=== PATIENT | male | born 1950 | race African-American/Black ===

== ENCOUNTER 2017-05-11 12:24 | Inpatient (IN) | payer MEDICARE, OTHER ==
[~2017-05-11] VITALS: Ht 177.8 cm; Wt 50.8 kg
[2017-05-11 12:34] VITALS: BP 115/77
[2017-05-11] MEDS ORDERED: ATORVASTATIN CA20 MG GT (13:24)
[2017-05-11] MEDS ORDERED: ACETAMINOPHEN325 M1 GT (13:24)
[2017-05-11] MEDS ORDERED: ASPIR 8181 MG GT (13:24)
[2017-05-11] MEDS ORDERED: VITAMIN B-1100 MG GT (13:24)
[2017-05-11] MEDS ORDERED: LACTULOSE20 GM/301 GT (13:24)
[2017-05-11] MEDS ORDERED: AMLODIPINE BESYL5 MG GT (13:24)
[2017-05-11] MEDS ORDERED: MULTIVITAMINS1 EAC2 GT (13:24)
[2017-05-11] MEDS ORDERED: IPRATROPIU0.2 MG/1 M HHN (13:24)
[2017-05-11] MEDS ORDERED: SIMETHICONE80 MG GT (13:24)
[2017-05-11] MEDS ORDERED: LOVENOX10 M4 SUBQ (13:24)
[2017-05-11] MEDS ORDERED: FOLIC ACID1 MG GT (13:24)
[2017-05-11] MEDS ORDERED: MEROPENEM1 GM IV (13:24)
[2017-05-11] MEDS ORDERED: NAMENDA10 MG GT (13:24)
[2017-05-11 13:54] LABS: MEAN CORPUSCULAR HEMOGLOBIN 32.4 PG (27.0-31.0); MEAN CORPUSCULAR VOLUME 98 FL (80-99); MEAN PLATELET VOLUME 7.9 FL (6.5-10.1); PLATELET COUNT 298 K/UL (150-450); RED BLOOD COUNT 3.87 M/UL (4.70-6.10); RED CELL DISTRIBUTION WIDTH 11.8 % (11.6-14.8)
[2017-05-11 13:56] LABS: WHITE BLOOD COUNT 22.1 K/UL (4.8-10.8)
[2017-05-11 13:56] LABS: APPEARANCE,URINE SLIGHTLY CLOUDY; KETONES,URINE NEGATIVE (NEGATIVE); LEUKOCYTE ESTERASE ,URINE NEGATIVE (NEGATIVE); NITRITE,URINE NEGATIVE (NEGATIVE); PH,URINE 6.5 (4.5-8.0); PROTEIN,URINE NEGATIVE (NEGATIVE); UROBILINOGEN,URINE NORMAL MG/DL (0.0-1.0)
[2017-05-11 13:57] LABS: ALANINE AMINOTRANSFERASE 23 U/L (3-41); ALBUMIN/GLOBULIN RATIO 0.8 (1.0-2.7); ANION GAP 12 (5-15); ASPARTATE AMINO TRANSFERASE 22 U/L (5-40); CALCIUM 9.5 mg/dL (8.6-10.2); CARBON DIOXIDE 27 mEQ/L (20-30); CHLORIDE 99 mEQ/L (98-107); CREATININE 0.7 mg/dL (0.7-1.2); GLOMERULAR FILTRATION RATE > 60 mL/min (>60); HEMOLYSIS 8; POTASSIUM 4.1 mEQ/L (3.4-4.9); SODIUM 138 mEQ/L (135-145); TOTAL PROTEIN 7.3 g/dL (6.6-8.7)
[2017-05-11 14:01] LABS: TROPONIN I 0.71 ng/mL (<=0.30)
[2017-05-11 14:12] LABS: BAND NEUTROPHILS % (MANUAL) 2 % (0-8); BASOPHILS % (MANUAL) 0 % (0-2); EOSINOPHILS % (MANUAL) 0 % (0-3); LYMPHOCYTES % (MANUAL) 9 % (20-45); NEUTROPHILS % (MANUAL) 84 % (45-75); PLATELET ESTIMATE ADEQUATE; TOTAL CELLS COUNTED 100
[2017-05-11 14:13] LABS: PLATELET MORPHOLOGY NORMAL
[2017-05-11 14:15] LABS: MACROCYTES 1+
[2017-05-11] MEDS ORDERED: Piperacillin/Tazobactam 3.375 GM in NS 110 ML IVPB ONE (14:15)
[2017-05-11] MEDS ORDERED: Zosyn 3.375gm inj ONE (14:37)
--- NOTE | 2017-05-11 14:41 | Diagnostic Imaging Report ---
Indication: Dyspnea Comparison: None A single view chest radiograph was obtained. Findings: Cardiomediastinal appearance is within normal limits for age. Pulmonary vascularity is appropriate. The diaphragmatic contour is smooth and costophrenic angles are sharp. No pleural effusions are identified. The bones are osteopenic. Impression: No acute findings
[2017-05-11] MEDS ORDERED: DuoNeb 0.5-3(2.5)mg/3ml neb HHN PRN (14:45)
[2017-05-11] MEDS ORDERED: Miralax 17gm pkt ORAL PRN (14:45)
[2017-05-11] MEDS ORDERED: Morphine Sulfate 2mg/ml Inj IVP PRN (14:45)
[2017-05-11 15:08] VITALS: BP 108/76
--- NOTE | 2017-05-11 15:23 | Emergency Room Report ---
History of Present Illness General Chief Complaint: General Complaint Source: EMS Present Illness HPI 67-year-old male presents ED for violation. Per EMS patient noted to be congested and hypoxic at the half-way today. Was also febrile. Given Tylenol. Patient is afebrile here. O2 saturations improved on nasal cannula. Patient is nonverbal at baseline. Showing no signs of distress. No other aggravating relieving factors. No other associated symptoms Allergies: Coded Allergies: No Known Allergies (Unverified , 05/11/17) Patient History Past Medical History: none Past Surgical History: none Pertinent Family History: none Social History: Denies: smoking, alcohol use, drug use Immunizations: UTD Reviewed Nursing Documentation: PMH: Agreed, PSxH: Agreed Review of Systems All Other Systems: limited Physical Exam Vital Signs Date Time Temp Pulse Resp B/P (MAP) Pulse Ox O2 Delivery O2 Flow Rate FiO2 05/11/17 12:26 105 20 115/77 96 Nasal Cannula 4.0 05/11/17 12:34 99.6 Sp02 EP Interpretation: reviewed, normal General Appearance: no apparent distress, alert, GCS 15, non-toxic Head: normocephalic, atraumatic Eyes: bilateral eye normal inspection, bilateral eye PERRL ENT: hearing grossly normal, normal pharynx, no angioedema, normal voice Neck: full range of motion, supple/symm/no masses Respiratory: chest non-tender, lungs clear, normal breath sounds, crackles, speaking full sentences Cardiovascular #1: regular rate, rhythm, no edema Cardiovascular #2: 2+ carotid (R), 2+ carotid (L), 2+ radial (R), 2+ radial (L) , 2+ dorsalis pedis (R), 2+ dorsalis pedis (L) Gastrointestinal: normal bowel sounds, non tender, soft, non-distended, no guarding, no rebound Rectal: deferred Genitourinary: normal inspection, no CVA tenderness Musculoskeletal: back normal, non-tender Neurologic: other - nonverbal Psychiatric: other - nonverbal Reflexes: 3+ bicep (R), 3+ bicep (L), 3+ tricep (R), 3+ tricep (L), 3+ knee (R) , 3+ knee (L) Skin: normal color, no rash, warm/dry, well hydrated Lymphatic: no adenopathy Procedures Critical Care Time Critical Care Time i. I feel this is a highly complex case requiring extensive working including EKG/Rhythm strip, Xray/CT/US, Blood/urine lab work, repeat exams while in ED, and administration of strong opiates/narcotics for pain control, admission to hospital or close patient follow up. Total time: 30 min bedside evaluation and treatment excludes procedures (EKG). Reason for critical care: leukocytosis, elevated troponin Possible complications: hypotension, hypertension, ND, shock, arrhythmias, metabolic acidosis, end organ damage, respiratory failure. Interventions: Labs, IV fluids, EKG, chest x-ray. Antibiotics. Aspirin. Course: Patient brought in for congestion, hypoxic. Febrile. O2 sats improved on nasal cannula. Markedly leukocytosis noted. Troponins positive. EKG shows no acute ischemic changes. Given antibiotics. Given IV fluids. Given aspirin. Consultations: nursing staff, EMS, family Performed by: Dr Francois Tolerated well condition = critical j. because of unstable vital signs this patient had a condition that could potentially threaten life or limb. I feel this is a critical patient who required my full attention while patient was considered critical. Total Critical Care Time excluding procedures was greater than 35 minutes Medical Decision Making Diagnostic Impression: Primary Impression: NSTEMI (non-ST elevated myocardial infarction) Additional Impression: Pneumonia Qualified Codes: J18.9 - Pneumonia, unspecified organism ER Course Hospital Course 67-year-old M presenting to ED with respiratory distress, congestion, fever Differential diagnoses include: Pneumonia, CHF exacerbation, pneumothorax, fluid overload Clinical course Patient placed on stretcher. 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 After initial history and physical, I ordered labs, IV fluids, EKG, chest x-ray, blood cultures, UA. Patient placed on nasal cannula with O2 saturation improving Labs - marked leukocytosis noted, hemoglobin/hematocrit stable, electrolytes ok , troponin 0.71, BNP > 1900 CXR - no acute infiltrate identified EKG-normal sinus rhythm no acute ischemic changes identified Given fluids. Given antibiotics. Given aspirin Case discussed with Dr. Mancia and he agreed to the patient to his service for further care and support I feel this is a highly complex case requiring extensive working including EKG/ Rhythm strip, Xray/CT/US, Blood/urine lab work, repeat exams while in ED, and administration of strong opiates/narcotics for pain control, admission to hospital or close patient follow up. Diagnosis - NSTEMI, pneumonia Patient admitted to [facility] in critical condition Labs Test 05/11/17 13:10 05/11/17 13:45 White Blood Count 22.1 K/UL (4.8-10.8) Red Blood Count 3.87 M/UL (4.70-6.10) Hemoglobin 12.5 G/DL (14.2-18.0) Hematocrit 38.0 % (42.0-52.0) Mean Corpuscular Volume 98 FL (80-99) Mean Corpuscular Hemoglobin 32.4 PG (27.0-31.0) Mean Corpuscular Hemoglobin Concent 33.0 G/DL (32.0-36.0) Red Cell Distribution Width 11.8 % (11.6-14.8) Platelet Count 298 K/UL (150-450) Mean Platelet Volume 7.9 FL (6.5-10.1) Neutrophils (%) (Auto) % (45.0-75.0) Lymphocytes (%) (Auto) % (20.0-45.0) Monocytes (%) (Auto) % (1.0-10.0) Eosinophils (%) (Auto) % (0.0-3.0) Basophils (%) (Auto) % (0.0-2.0) Differential Total Cells Counted 100 Neutrophils % (Manual) 84 % (45-75) Lymphocytes % (Manual) 9 % (20-45) Monocytes % (Manual) 5 % (1-10) Eosinophils % (Manual) 0 % (0-3) Basophils % (Manual) 0 % (0-2) Band Neutrophils 2 % (0-8) Platelet Estimate Adequate Platelet Morphology Normal Macrocytosis 1+ Sodium Level 138 mEQ/L (135-145) Potassium Level 4.1 mEQ/L (3.4-4.9) Chloride Level 99 mEQ/L (98-107) Carbon Dioxide Level 27 mEQ/L (20-30) Anion Gap 12 (5-15) Blood Urea Nitrogen 9 mg/dL (7-23) Creatinine 0.7 mg/dL (0.7-1.2) Estimat Glomerular Filtration Rate > 60 mL/min (>60) Glucose Level 115 mg/dL (74-106) Lactic Acid Level 1.30 mmol/L (0.66-2.22) Calcium Level 9.5 mg/dL (8.6-10.2) Total Bilirubin 0.8 mg/dL (0.0-1.2) Aspartate Amino Transf (AST/SGOT) 22 U/L (5-40) Alanine Aminotransferase (ALT/SGPT) 23 U/L (3-41) Alkaline Phosphatase 58 U/L (40-129) Total Creatine Kinase 69 U/L (38-174) Creatine Kinase MB 3.0 ng/mL (< 6.7) Creatine Kinase MB Relative Index 4.3 Troponin I 0.71 ng/mL (<=0.30) Pro-B-Type Natriuretic Peptide 1907 pg/mL (0-125) Total Protein 7.3 g/dL (6.6-8.7) Albumin 3.4 g/dL (3.5-5.2) Globulin 3.9 g/dL Albumin/Globulin Ratio 0.8 (1.0-2.7) Urine Color Yellow Urine Appearance Slightly cloudy Urine pH 6.5 (4.5-8.0) Urine Specific [place] 1.015 (1.005-1.035) Urine Protein Negative (NEGATIVE) Urine Glucose (UA) Negative (NEGATIVE) Urine Ketones Negative (NEGATIVE) Urine Occult Blood Negative (NEGATIVE) Urine Nitrite Negative (NEGATIVE) Urine Bilirubin Negative (NEGATIVE) Urine Urobilinogen Normal MG/DL (0.0-1.0) Urine Leukocyte Esterase Negative (NEGATIVE) EKG Diagnostic Results Rate: normal Rhythm: NSR ST Segments: no acute changes ASA given to the pt in ED: Yes Rhythm Strip Diag. Results EP Interpretation: yes Rhythm: NSR, no PVC's Chest X-Ray Diagnostic Results Chest X-Ray Diagnostic Results : Chest X-Ray Ordered: Yes # of Views/Limited/Complete: 1 View Indication: Shortness of Breath EP Interpretation: Yes Interpretation: no consolidation, no effusion, no pneumothorax, no acute cardiopulmonary disease Impression: No acute disease Electronically Signed by: Electronically signed by Khadar Francois MD Last Vital Signs Date Time Temp Pulse Resp B/P (MAP) Pulse Ox O2 Delivery O2 Flow Rate FiO2 05/11/17 15:08 99.0 77 20 108/76 96 Nasal Cannula 4.0 Status: improved Disposition: ADMITTED INPATIENT Condition: Critical Referrals: ARLENE MANCIA (PCP) KHADAR FRANCOIS M.D. May 11, 2017 15:23
[2017-05-11 17:03] VITALS: BP 113/70
--- NOTE | 2017-05-11 17:05 | Cardiac Electrophysiology PN ---
Subjective Subjective [id number] Objective Last 24 Hour Vital Signs Date Time Temp Pulse Resp B/P (MAP) Pulse Ox O2 Delivery O2 Flow Rate FiO2 05/11/17 16:30 99.0 69 20 107/81 100 Simple Mask 10.0 05/11/17 15:08 99.0 77 20 108/76 96 Nasal Cannula 4.0 05/11/17 12:34 99.6 105 20 115/77 96 Nasal Cannula 4.0 05/11/17 12:26 105 20 115/77 96 Nasal Cannula 4.0 Intake and Output 05/11/17 05/12/17 19:00 07:00 Intake Total 2110 ml Output Total 260 ml Balance 1850 ml Intake Oral 0 ml IV Total 2110 ml Output Urine Total 260 ml Laboratory Tests Test 05/11/17 13:10 05/11/17 13:45 White Blood Count 22.1 K/UL (4.8-10.8) *H Red Blood Count 3.87 M/UL (4.70-6.10) L Hemoglobin 12.5 G/DL (14.2-18.0) L Hematocrit 38.0 % (42.0-52.0) L Mean Corpuscular Volume 98 FL (80-99) Mean Corpuscular Hemoglobin 32.4 PG (27.0-31.0) H Mean Corpuscular Hemoglobin Concent 33.0 G/DL (32.0-36.0) Red Cell Distribution Width 11.8 % (11.6-14.8) Platelet Count 298 K/UL (150-450) Mean Platelet Volume 7.9 FL (6.5-10.1) Neutrophils (%) (Auto) % (45.0-75.0) Lymphocytes (%) (Auto) % (20.0-45.0) Monocytes (%) (Auto) % (1.0-10.0) Eosinophils (%) (Auto) % (0.0-3.0) Basophils (%) (Auto) % (0.0-2.0) Differential Total Cells Counted 100 Neutrophils % (Manual) 84 % (45-75) H Lymphocytes % (Manual) 9 % (20-45) L Monocytes % (Manual) 5 % (1-10) Eosinophils % (Manual) 0 % (0-3) Basophils % (Manual) 0 % (0-2) Band Neutrophils 2 % (0-8) Platelet Estimate Adequate Platelet Morphology Normal Macrocytosis 1+ Sodium Level 138 mEQ/L (135-145) Potassium Level 4.1 mEQ/L (3.4-4.9) Chloride Level 99 mEQ/L (98-107) Carbon Dioxide Level 27 mEQ/L (20-30) Anion Gap 12 (5-15) Blood Urea Nitrogen 9 mg/dL (7-23) Creatinine 0.7 mg/dL (0.7-1.2) Estimat Glomerular Filtration Rate > 60 mL/min (>60) Glucose Level 115 mg/dL (74-106) H Lactic Acid Level 1.30 mmol/L (0.66-2.22) Calcium Level 9.5 mg/dL (8.6-10.2) Total Bilirubin 0.8 mg/dL (0.0-1.2) Aspartate Amino Transf (AST/SGOT) 22 U/L (5-40) Alanine Aminotransferase (ALT/SGPT) 23 U/L (3-41) Alkaline Phosphatase 58 U/L (40-129) Total Creatine Kinase 69 U/L (38-174) Creatine Kinase MB 3.0 ng/mL (< 6.7) Creatine Kinase MB Relative Index 4.3 Troponin I 0.71 ng/mL (<=0.30) *H Pro-B-Type Natriuretic Peptide 1907 pg/mL (0-125) H Total Protein 7.3 g/dL (6.6-8.7) Albumin 3.4 g/dL (3.5-5.2) L Globulin 3.9 g/dL Albumin/Globulin Ratio 0.8 (1.0-2.7) L Urine Color Yellow Urine Appearance Slightly cloudy Urine pH 6.5 (4.5-8.0) Urine Specific [place] 1.015 (1.005-1.035) Urine Protein Negative (NEGATIVE) Urine Glucose (UA) Negative (NEGATIVE) Urine Ketones Negative (NEGATIVE) Urine Occult Blood Negative (NEGATIVE) Urine Nitrite Negative (NEGATIVE) Urine Bilirubin Negative (NEGATIVE) Urine Urobilinogen Normal MG/DL (0.0-1.0) Urine Leukocyte Esterase Negative (NEGATIVE) TYSON NOVOA May 11, 2017 17:05
[2017-05-11] MEDS ORDERED: Miralax 17gm pkt GT PRN (17:30)
[2017-05-11] MEDS: Vancomycin 1 GM in D5W 275 ML IVPB SCH (17:36)
--- NOTE | 2017-05-11 18:07 | Infectious Diseases Prog Note ---
Assessment/Plan Problems: (1) Sepsis Assessment & Plan: will send blood culture , and start vancomycin with cefepime (2) Pneumonia Assessment & Plan: on vancomycin and cefepime , monitor CXR (3) NSTEMI (non-ST elevated myocardial infarction) Assessment & Plan: recommend cardiology consult for evaluation Subjective Allergies: Coded Allergies: No Known Allergies (Unverified , 05/11/17) Objective Vital Signs Last 24 Hour Vital Signs Date Time Temp Pulse Resp B/P (MAP) Pulse Ox O2 Delivery O2 Flow Rate FiO2 05/11/17 17:03 98.0 74 20 113/70 94 Nasal Cannula 4.0 05/11/17 16:30 99.0 69 20 107/81 100 Simple Mask 10.0 05/11/17 15:08 99.0 77 20 108/76 96 Nasal Cannula 4.0 05/11/17 12:34 99.6 105 20 115/77 96 Nasal Cannula 4.0 05/11/17 12:26 105 20 115/77 96 Nasal Cannula 4.0 Height (Feet): 5 Height (Inches): 10.00 Weight (Pounds): 160 Laboratory Tests Test 05/11/17 13:10 05/11/17 13:45 White Blood Count 22.1 K/UL (4.8-10.8) *H Red Blood Count 3.87 M/UL (4.70-6.10) L Hemoglobin 12.5 G/DL (14.2-18.0) L Hematocrit 38.0 % (42.0-52.0) L Mean Corpuscular Volume 98 FL (80-99) Mean Corpuscular Hemoglobin 32.4 PG (27.0-31.0) H Mean Corpuscular Hemoglobin Concent 33.0 G/DL (32.0-36.0) Red Cell Distribution Width 11.8 % (11.6-14.8) Platelet Count 298 K/UL (150-450) Mean Platelet Volume 7.9 FL (6.5-10.1) Neutrophils (%) (Auto) % (45.0-75.0) Lymphocytes (%) (Auto) % (20.0-45.0) Monocytes (%) (Auto) % (1.0-10.0) Eosinophils (%) (Auto) % (0.0-3.0) Basophils (%) (Auto) % (0.0-2.0) Differential Total Cells Counted 100 Neutrophils % (Manual) 84 % (45-75) H Lymphocytes % (Manual) 9 % (20-45) L Monocytes % (Manual) 5 % (1-10) Eosinophils % (Manual) 0 % (0-3) Basophils % (Manual) 0 % (0-2) Band Neutrophils 2 % (0-8) Platelet Estimate Adequate Platelet Morphology Normal Macrocytosis 1+ Sodium Level 138 mEQ/L (135-145) Potassium Level 4.1 mEQ/L (3.4-4.9) Chloride Level 99 mEQ/L (98-107) Carbon Dioxide Level 27 mEQ/L (20-30) Anion Gap 12 (5-15) Blood Urea Nitrogen 9 mg/dL (7-23) Creatinine 0.7 mg/dL (0.7-1.2) Estimat Glomerular Filtration Rate > 60 mL/min (>60) Glucose Level 115 mg/dL (74-106) H Lactic Acid Level 1.30 mmol/L (0.66-2.22) Calcium Level 9.5 mg/dL (8.6-10.2) Total Bilirubin 0.8 mg/dL (0.0-1.2) Aspartate Amino Transf (AST/SGOT) 22 U/L (5-40) Alanine Aminotransferase (ALT/SGPT) 23 U/L (3-41) Alkaline Phosphatase 58 U/L (40-129) Total Creatine Kinase 69 U/L (38-174) Creatine Kinase MB 3.0 ng/mL (< 6.7) Creatine Kinase MB Relative Index 4.3 Troponin I 0.71 ng/mL (<=0.30) *H Pro-B-Type Natriuretic Peptide 1907 pg/mL (0-125) H Total Protein 7.3 g/dL (6.6-8.7) Albumin 3.4 g/dL (3.5-5.2) L Globulin 3.9 g/dL Albumin/Globulin Ratio 0.8 (1.0-2.7) L Urine Color Yellow Urine Appearance Slightly cloudy Urine pH 6.5 (4.5-8.0) Urine Specific [place] 1.015 (1.005-1.035) Urine Protein Negative (NEGATIVE) Urine Glucose (UA) Negative (NEGATIVE) Urine Ketones Negative (NEGATIVE) Urine Occult Blood Negative (NEGATIVE) Urine Nitrite Negative (NEGATIVE) Urine Bilirubin Negative (NEGATIVE) Urine Urobilinogen Normal MG/DL (0.0-1.0) Urine Leukocyte Esterase Negative (NEGATIVE) Current Medications Medications (Trade) Dose Ordered Sig/Greta Route PRN Reason Start Time Stop Time Status Last Admin Dose Admin Acetaminophen (Tylenol) 650 mg Q4H PRN ORAL fever 05/11/17 14:45 06/10/17 14:44 Albuterol/ Ipratropium (DuoNeb 0.5-3(2.5)mg/3ml) 3 ml Q4H PRN HHN Shortness of Breath 05/11/17 14:45 05/16/17 14:44 Amlodipine Besylate (Norvasc) 5 mg DAILY GT 05/12/17 09:00 06/11/17 08:59 Aspirin (ASA) 81 mg DAILY NG 05/12/17 09:00 06/11/17 08:59 Atorvastatin Calcium (Lipitor) 10 mg BEDTIME GT 05/11/17 21:00 06/10/17 20:59 Cefepime HCl 2 gm/ Dextrose 110 ml @ 220 mls/hr Q12HR@0900,2100 IV 05/11/17 21:00 05/18/17 20:59 Heparin Sodium (Porcine) (Heparin 5000 units/ml) 5,000 units EVERY 12 HOURS SUBQ 05/11/17 21:00 06/10/17 20:59 Memantine (Namenda) 10 mg DAILY GT 05/12/17 09:00 06/11/17 08:59 Metoprolol Tartrate (Lopressor) 12.5 mg Q12HR GT 05/11/17 21:00 06/10/17 20:59 Morphine Sulfate (Morphine Sulfate) 2 mg Q4H PRN IVP Moderate Pain (Pain Scale 4-6) 05/11/17 14:45 05/18/17 14:44 Ondansetron HCl (Zofran) 4 mg Q6H PRN IVP Nausea & Vomiting 05/11/17 14:45 06/10/17 14:44 Phenazopyridine HCl (Pyridium) 100 mg DAILYPRN PRN GT dysuria 05/11/17 17:30 06/10/17 14:44 Polyethylene Glycol (Miralax) 17 gm DAILYPRN PRN GT Constipation 05/11/17 17:30 06/10/17 14:44 Temazepam (Restoril) 15 mg HSPRN PRN GT Insomnia 05/11/17 17:30 05/18/17 14:44 Vancomycin HCl (Vanco rx to dose) 1 ea DAILYPRN PRN MISC RX PROTOCOL 05/11/17 17:15 06/10/17 17:14 Vancomycin HCl 1 gm/Dextrose 275 ml @ 183.3 mls/ hr Q12HR@0600,1800 IVPB 05/11/17 18:00 05/16/17 17:59 05/11/17 17:36 Tavo Chopra M.D. May 11, 2017 18:07
[2017-05-11 20:15] VITALS: BP 112/70
[2017-05-11] MEDS: Metoprolol Tartrate 12.5mg TAB GT SCH (21:01)
[2017-05-11] MEDS: Heparin 5000 units/ml inj SUBQ SCH (21:02)
[2017-05-11] MEDS: Cefepime HCl 2 GM in D5W 110 ML IV SCH (21:08)
[2017-05-11 21:43] LABS: TROPONIN I 0.87 ng/mL (<=0.30)
[2017-05-11 22:48] LABS: APPEARANCE,URINE CLEAR; KETONES,URINE NEGATIVE (NEGATIVE); LEUKOCYTE ESTERASE ,URINE 1+ (NEGATIVE); NITRITE,URINE NEGATIVE (NEGATIVE); PH,URINE 7 (4.5-8.0); PROTEIN,URINE NEGATIVE (NEGATIVE); UROBILINOGEN,URINE NORMAL MG/DL (0.0-1.0)
[2017-05-11 23:00] LABS: BACTERIA,URINE MODERATE /HPF
[2017-05-11 23:01] LABS: AMORPHOUS SEDIMENT,UR FEW /LPF
--- NOTE | 2017-05-11 23:45 | Consultation ---
DATE OF CONSULTATION: INFECTIOUS DISEASE CONSULTATION REQUESTING PHYSICIAN: Sridhar Jiang D.O. REASON FOR CONSULTATION: Sepsis, leukocytosis, possible pneumonia, recommendation for antibiotics therapy. HISTORY OF PRESENT ILLNESS: The patient is a 67-year-old male, presents to the emergency room at [facility] due to hypoxemia and fever, which [facility]. Today, the patient was given Tylenol without improvement and his saturation improved upon arrival to the emergency room with nasal cannula for oxygen. The patient is nonverbal and cannot provide any history at this point. History was mainly obtained from the medical records. The patient had temperature of 99.6 in the emergency room with pulse of 105, saturating 96% on four liters nasal cannula. His chest x-ray showed no acute infiltration, but his white count seems to be elevated at 22,000 concerning for sepsis with fever, so I was consulted by the primary provider for antibiotics treatment. REVIEW OF SYSTEMS: Unable to obtain. PAST MEDICAL HISTORY: Unable to obtain at this point. PAST SURGICAL HISTORY: Unable to obtain. FAMILY HISTORY: Unable to obtain at this point. SOCIAL HISTORY: The [facility] is a [facility] resident. Denied using any drugs, tobacco, or alcohol. ALLERGIES: He has no known drug allergy. MEDICATIONS: He is on cefepime and vancomycin by the admitting provider. For the rest of his medications, please refer to MAR. PHYSICAL EXAMINATION: VITAL SIGNS: Temperature is 98, pulse 74, respirations 20, blood pressure 113/70, and O2 saturation 94% on four liters nasal cannula. GENERAL: An elderly male, up in bed, alert, unresponsive, does not follow commands, not in acute distress. HEENT: Normocephalic and atraumatic. Pupils are reactive to light. Dry oral mucosa. Poor dental hygiene. NECK: Supple. No lymphadenopathy. CARDIOVASCULAR: Regular rate and rhythm. No murmur. LUNGS: He had diminished breathing sounds at the bases. No wheezing or rhonchi. ABDOMEN: Soft, nontender, and nondistended. No organomegaly. No ascites. EXTREMITIES: No edema or cyanosis. SKIN: Dry skin. No rash or hives. LABORATORY AND DIAGNOSTIC DATA: Labs showed white count of 22.1, hemoglobin of 12.5, and platelet count of 298,000. BUN of 9 and creatinine of 0.7. AST of 22, ALT of 23, and alkaline phosphatase of 58. Urinalysis was negative. Imaging, chest x-ray showed no acute finding. ASSESSMENT AND RECOMMENDATION: 1. Sepsis with leukocytosis, unclear etiology at this point. The patient was started on vancomycin and cefepime, which we will continue for now. Pending culture results. 2. Pneumonia, on vancomycin and cefepime already. Repeat chest x-ray to confirm. 3. Non-ST elevation myocardial infarction. Consult Cardiology. Tavo Chopra M.D. DR: JENNIFER JOB#: [id number] CC:
[2017-05-12] VITALS (7 sets, daily range): BP systolic 82–117; BP diastolic 53–67
--- NOTE | 2017-05-12 00:15 | History and Physical Report ---
DATE OF ADMISSION: 05/11/2017 TIME SEEN: 1 p.m. CONSULTANTS: 1. Ani Douglass M.D. 2. Dr. Srivastava. 3. Subhash Jorgensen M.D. 4. Prema Biswas M.D. 5. Elvin Thomson M.D. CHIEF COMPLAINT: Fever, tachycardia, congestion, and weakness. BRIEF HISTORY: This is a 67-year-old male from [facility], who presents with the above-mentioned diagnoses. Currently using O2 NC in the ER, confused, altered, nonverbal, awaiting admission. PAST MEDICAL HISTORY: Hypertension, weakness, and altered mental status. PAST SURGICAL HISTORY: Unknown. MEDICATIONS: Just IV fluids for now. We will obtain list shortly. ALLERGIES: Denies. SOCIAL HISTORY: Unknown. REVIEW OF SYSTEMS: Nonverbal. PHYSICAL EXAMINATION: GENERAL: Lethargic in bed, O2 NC, altered, nonverbal. VITAL SIGNS: Show temperature is not given, pulse 105, respirations 20, and blood pressure 115/77. CARDIOVASCULAR: No murmur. LUNGS: Poor air exchange. ABDOMEN: Bowel sounds positive. Soft, nontender, and nondistended. EXTREMITIES: No cyanosis, clubbing, or edema. NEUROLOGIC: The patient is flaccid in bed, not responding to questions. LABORATORY AND DIAGNOSTIC DATA: Pending. ASSESSMENT: 1. Fever. 2. Tachycardia. 3. Hypertension. 4. Congestion. 5. Weakness. 6. Altered mental status. PLAN: 1. Continue premeds. 2. OT, PT, and dietary evaluation. 3. O2 and pulmonary treatment. 4. Antibiotics per Infectious Disease. 5. Resume home medications. 6. Blood pressure control. 7. Dietary followup. 8. Dr. Douglass, Dr. Srivastava, Dr. Jorgensen, Dr. Biswas, and Dr. Thomson to consult. 9. We will continue to follow this patient. 10. Check labs when they become available. Sridhar Jiang D.O. DR: Rowan JOB#: [id number] CC:
--- NOTE | 2017-05-12 03:30 | Consultation ---
DATE OF CONSULTATION: 05/11/2017 CARDIOLOGY CONSULTATION CONSULTING PHYSICIAN: Elvin Thomson M.D. REFERRING PHYSICIAN: Sridhar Jiang D.O. REASON FOR CONSULTATION: Elevated troponin. HISTORY OF PRESENT ILLNESS: The patient is a 67-year-old gentleman with history of advanced dementia, status post G-tube, nonverbal, who [facility] a [facility], who [facility] for congestion and being hypoxic. The patient had no sign of distress. The patient was then admitted to stepdown unit and a Cardiology consultation was obtained for further evaluation. Chart noted the patient's most recent hospitalization was at [facility] from 04/28/2017 through 04/30/2017 for acute respiratory failure and aspiration pneumonia. Even then, the patient had elevated troponin. REVIEW OF SYSTEMS: Cannot be obtained. PAST MEDICAL HISTORY: As mentioned above. FAMILY HISTORY: Noncontributory. SOCIAL HISTORY: [facility]. He does not smoke or drink alcohol. MEDICATIONS: Per reconciliation. PHYSICAL EXAMINATION: VITAL SIGNS: Show blood pressure of 107/81, pulse 69, and respirations 18. His initial pulse was 107 and temperature was 100 degrees. NECK: Shows no JVD. LUNGS: Coarse rhonchi. CARDIOVASCULAR: Shows regular S1 and S2 with no gallop or murmur. ABDOMEN: Status post G-tube. EXTREMITIES: No pitting edema. LABORATORY AND DIAGNOSTIC DATA: His EKG shows sinus rhythm with possible old inferior wall infarct. Labs show white count of 22.1, hemoglobin 12.5, hematocrit 38, and platelet count of 298,000. Sodium 138, potassium 4.1, BUN of 9, creatinine 0.7, and glucose of 115. Troponin is elevated at 0.71. BNP is 1907. ASSESSMENT AND PLAN: 1. Elevated troponin. The patient's CPKs are negative and the patient does not have renal failure. The EKG does not show any acute ischemic changes. The patient, however, is nonverbal. We will treat the patient medically and we will repeat the cardiac enzymes, get an echocardiogram and repeat EKG. In the meantime, continue the patient on aspirin and add low-dose beta-amelia to his medical regimen. 2. History of hypertension, on Norvasc 5 mg daily and Lopressor 12.5 mg b.i.d. 3. Sepsis, elevated white count, on vancomycin and cefepime. 4. Dysphagia, status post percutaneous endoscopic gastrostomy placement. 5. Chronic encephalopathy and Alzheimer's. Thank you very much, Dr. Jiang, for allowing me to participate in the care of this patient. Please do not hesitate to contact me for any questions regarding my evaluation. Elvin Thomson M.D. DR: Sharad JOB#: [id number] CC:
[2017-05-12 05:43] LABS: BASOPHILS % (AUTO) 0.7 % (0.0-2.0); EOSINOPHILS % (AUTO) 1.8 % (0.0-3.0); LYMPHOCYTES % (AUTO) 16.9 % (20.0-45.0); MEAN CORPUSCULAR HGB CONC 32.4 G/DL (32.0-36.0); MEAN CORPUSCULAR VOLUME 99 FL (80-99); MEAN PLATELET VOLUME 7.7 FL (6.5-10.1); MONOCYTES % (AUTO) 6.4 % (1.0-10.0); NEUTROPHILS % (AUTO) 74.3 % (45.0-75.0); PLATELET COUNT 257 K/UL (150-450); RED BLOOD COUNT 3.28 M/UL (4.70-6.10); RED CELL DISTRIBUTION WIDTH 11.7 % (11.6-14.8); WHITE BLOOD COUNT 11.5 K/UL (4.8-10.8)
[2017-05-12] MEDS: Vancomycin 1 GM in D5W 275 ML IVPB SCH ×2 (05:53→18:47)
[2017-05-12 06:06] LABS: ALANINE AMINOTRANSFERASE 17 U/L (3-41); ALBUMIN/GLOBULIN RATIO 0.7 (1.0-2.7); ANION GAP 9 (5-15); ASPARTATE AMINO TRANSFERASE 15 U/L (5-40); CARBON DIOXIDE 25 mEQ/L (20-30); CHLORIDE 105 mEQ/L (98-107); CHOLESTEROL 128 mg/dL (< 200); CHOLESTEROL/HDL RATIO 5.1 (3.3-4.4); CREATININE 0.6 mg/dL (0.7-1.2); GLOMERULAR FILTRATION RATE > 60 mL/min (>60); HEMOLYSIS 0; LDL CHOLESTEROL (CALC.) 91 mg/dL (60-99); POTASSIUM 3.6 mEQ/L (3.4-4.9); SODIUM 139 mEQ/L (135-145); TOTAL PROTEIN 6.4 g/dL (6.6-8.7)
[2017-05-12 06:08] LABS: TROPONIN I 0.75 ng/mL (<=0.30)
[2017-05-12] MEDS: Metoprolol Tartrate 12.5mg TAB GT SCH ×2 (09:00→21:14)
[2017-05-12] MEDS: Cefepime HCl 2 GM in D5W 110 ML IV SCH ×2 (09:01→21:15)
[2017-05-12] MEDS: Memantine 10mg tab GT SCH (09:01)
[2017-05-12] MEDS: Aspirin Baby 81mg NG SCH (09:01)
[2017-05-12] MEDS: Heparin 5000 units/ml inj SUBQ SCH ×2 (09:03→21:19)
--- NOTE | 2017-05-12 11:23 | Consultation ---
History of Present Illness General Date patient seen: May 11, 2017 Chief Complaint: General Complaint Referring physician: Dr. Jiang Reason for Consultation: hypoxemia Present Illness HPI 67-year-old male with PMHx of end stage dementia, Gtube feeding presented to ED for evaluation of congestion and hypoxemia at the detention today. Was also febrile. Patient is nonverbal at baseline. Showing no signs of distress. No other aggravating relieving factors. He was found to have increased troponin and admitted to [facility] for further treatment. Allergies: Coded Allergies: No Known Allergies (Unverified , 05/11/17) Medication History Scheduled Amlodipine Besylate* (Amlodipine Besylate*), 5 MG GT DAILY, (Reported) Aspirin* (Aspir 81*), 81 MG GT DAILY, (Reported) Atorvastatin Calcium* (Atorvastatin Calcium*), 10 MG GT BEDTIME, (Reported) Enoxaparin* (Lovenox*), 40 MG SUBQ DAILY, (Reported) Folic Acid* (Folic Acid*), 1 MG GT DAILY, (Reported) Memantine Hcl* (Namenda*), 10 MG GT DAILY, (Reported) Multivitamins* (Multivitamins*), 1 TAB GT DAILY, (Reported) Thiamine Hcl* (Vitamin B-1*), 100 MG GT DAILY, (Reported) Scheduled PRN Acetaminophen* (Acetaminophen 325MG Tablet*), 650 MG GT Q6H PRN for For Pain, ( Reported) Ipratropium [place] 0.5MG/2.5ML (Ipratropium [place] 0.5MG/2.5ML), 0.5 MG HHN Q6H PRN for Shortness of Breath, (Reported) Simethicone* (Simethicone*), Unknown Dose GT Q8H PRN for GAS PAIN, (Reported) Miscellaneous Medications Lactulose (Lactulose*), 30 ML GT, (Reported) Meropenem (Meropenem), 1 GM IV, (Reported) Patient History Healthcare decision maker Judith Diehl Resuscitation status Full Code Advanced Directive on File Past Medical/Surgical History Past Medical/Surgical History: (1) Alzheimer disease (2) Feeding by G-tube Review of Systems All Other Systems: negative except mentioned in HPI Physical Exam General Appearance: cachetic, thin Lines, tubes and drains: peripheral HEENT: normocephalic, atraumatic Neck: normal alignment, supple Respiratory/Chest: rhonchi - left, rhonchi - right Cardiovascular/Chest: normal peripheral pulses, normal rate, regular rhythm Abdomen: normal bowel sounds, soft Genitourinary/Rectal: normal genital exam, normal rectal exam Extremities: normal range of motion, non-tender Last 24 Hour Vital Signs Date Time Temp Pulse Resp B/P (MAP) Pulse Ox O2 Delivery O2 Flow Rate FiO2 05/12/17 09:00 65 103/61 05/12/17 09:00 65 103/61 05/12/17 08:00 97.5 71 19 103/61 98 Venturi Mask 7.0 35 05/12/17 08:00 65 05/12/17 07:37 Venturi Mask 8.0 35 05/12/17 07:37 97 Venturi Mask 8.0 35 05/12/17 07:35 68 16 Venturi Mask 8.0 35 05/12/17 03:46 58 05/12/17 03:36 97.7 66 18 98/62 98 Venturi Mask 8.0 35 05/12/17 00:18 98.1 62 18 111/58 95 Simple Mask 05/11/17 23:15 60 05/11/17 21:01 67 112/70 05/11/17 20:15 97.0 67 17 112/70 100 Simple Mask 05/11/17 20:00 62 05/11/17 19:07 Non-Rebreather 15.0 100 05/11/17 19:07 100 Non-Rebreather 15.0 100 05/11/17 19:07 68 18 Non-Rebreather 15.0 100 05/11/17 17:03 98.0 74 20 113/70 94 Nasal Cannula 4.0 05/11/17 16:30 99.0 69 20 107/81 100 Simple Mask 10.0 05/11/17 15:08 99.0 77 20 108/76 96 Nasal Cannula 4.0 05/11/17 12:34 99.6 105 20 115/77 96 Nasal Cannula 4.0 05/11/17 12:26 105 20 115/77 96 Nasal Cannula 4.0 Intake and Output 05/12/17 05/13/17 19:00 07:00 Output Total 375 ml Balance -375 ml Output Urine Total 375 ml Laboratory Tests Test 05/11/17 13:10 05/11/17 13:45 05/11/17 21:05 05/11/17 22:00 White Blood Count 22.1 K/UL (4.8-10.8) *H Red Blood Count 3.87 M/UL (4.70-6.10) L Hemoglobin 12.5 G/DL (14.2-18.0) L Hematocrit 38.0 % (42.0-52.0) L Mean Corpuscular Volume 98 FL (80-99) Mean Corpuscular Hemoglobin 32.4 PG (27.0-31.0) H Mean Corpuscular Hemoglobin Concent 33.0 G/DL (32.0-36.0) Red Cell Distribution Width 11.8 % (11.6-14.8) Platelet Count 298 K/UL (150-450) Mean Platelet Volume 7.9 FL (6.5-10.1) Neutrophils (%) (Auto) % (45.0-75.0) Lymphocytes (%) (Auto) % (20.0-45.0) Monocytes (%) (Auto) % (1.0-10.0) Eosinophils (%) (Auto) % (0.0-3.0) Basophils (%) (Auto) % (0.0-2.0) Differential Total Cells Counted 100 Neutrophils % (Manual) 84 % (45-75) H Lymphocytes % (Manual) 9 % (20-45) L Monocytes % (Manual) 5 % (1-10) Eosinophils % (Manual) 0 % (0-3) Basophils % (Manual) 0 % (0-2) Band Neutrophils 2 % (0-8) Platelet Estimate Adequate Platelet Morphology Normal Macrocytosis 1+ Sodium Level 138 mEQ/L (135-145) Potassium Level 4.1 mEQ/L (3.4-4.9) Chloride Level 99 mEQ/L (98-107) Carbon Dioxide Level 27 mEQ/L (20-30) Anion Gap 12 (5-15) Blood Urea Nitrogen 9 mg/dL (7-23) Creatinine 0.7 mg/dL (0.7-1.2) Estimat Glomerular Filtration Rate > 60 mL/min (>60) Glucose Level 115 mg/dL (74-106) H Lactic Acid Level 1.30 mmol/L (0.66-2.22) Calcium Level 9.5 mg/dL (8.6-10.2) Total Bilirubin 0.8 mg/dL (0.0-1.2) Aspartate Amino Transf (AST/SGOT) 22 U/L (5-40) Alanine Aminotransferase (ALT/SGPT) 23 U/L (3-41) Alkaline Phosphatase 58 U/L (40-129) Total Creatine Kinase 69 U/L (38-174) Creatine Kinase MB 3.0 ng/mL (< 6.7) Creatine Kinase MB Relative Index 4.3 Troponin I 0.71 ng/mL (<=0.30) *H 0.87 ng/mL (<=0.30) *H Pro-B-Type Natriuretic Peptide 1907 pg/mL (0-125) H Total Protein 7.3 g/dL (6.6-8.7) Albumin 3.4 g/dL (3.5-5.2) L Globulin 3.9 g/dL Albumin/Globulin Ratio 0.8 (1.0-2.7) L Urine Color Yellow Pale yellow Urine Appearance Slightly cloudy Clear Urine pH 6.5 (4.5-8.0) 7 (4.5-8.0) Urine Specific [place] 1.015 (1.005-1.035) 1.010 (1.005-1.035) Urine Protein Negative (NEGATIVE) Negative (NEGATIVE) Urine Glucose (UA) Negative (NEGATIVE) Negative (NEGATIVE) Urine Ketones Negative (NEGATIVE) Negative (NEGATIVE) Urine Occult Blood Negative (NEGATIVE) 2+ (NEGATIVE) H Urine Nitrite Negative (NEGATIVE) Negative (NEGATIVE) Urine Bilirubin Negative (NEGATIVE) Negative (NEGATIVE) Urine Urobilinogen Normal MG/DL (0.0-1.0) Normal MG/DL (0.0-1.0) Urine Leukocyte Esterase Negative (NEGATIVE) 1+ (NEGATIVE) H Urine RBC 5-10 /HPF (0 - 0) H Urine WBC 2-4 /HPF (0 - 0) Urine Squamous Epithelial Cells None /LPF (NONE/OCC) Urine Amorphous Sediment Few /LPF (NONE) H Urine Bacteria Moderate /HPF (NONE) H Test 05/12/17 05:10 White Blood Count 11.5 K/UL (4.8-10.8) H Red Blood Count 3.28 M/UL (4.70-6.10) L Hemoglobin 10.5 G/DL (14.2-18.0) L Hematocrit 32.4 % (42.0-52.0) L Mean Corpuscular Volume 99 FL (80-99) Mean Corpuscular Hemoglobin 32.0 PG (27.0-31.0) H Mean Corpuscular Hemoglobin Concent 32.4 G/DL (32.0-36.0) Red Cell Distribution Width 11.7 % (11.6-14.8) Platelet Count 257 K/UL (150-450) Mean Platelet Volume 7.7 FL (6.5-10.1) Neutrophils (%) (Auto) 74.3 % (45.0-75.0) Lymphocytes (%) (Auto) 16.9 % (20.0-45.0) L Monocytes (%) (Auto) 6.4 % (1.0-10.0) Eosinophils (%) (Auto) 1.8 % (0.0-3.0) Basophils (%) (Auto) 0.7 % (0.0-2.0) Sodium Level 139 mEQ/L (135-145) Potassium Level 3.6 mEQ/L (3.4-4.9) Chloride Level 105 mEQ/L (98-107) Carbon Dioxide Level 25 mEQ/L (20-30) Anion Gap 9 (5-15) Blood Urea Nitrogen 7 mg/dL (7-23) Creatinine 0.6 mg/dL (0.7-1.2) L Estimat Glomerular Filtration Rate > 60 mL/min (>60) Glucose Level 118 mg/dL (74-106) H Calcium Level 9.0 mg/dL (8.6-10.2) Total Bilirubin 0.4 mg/dL (0.0-1.2) Aspartate Amino Transf (AST/SGOT) 15 U/L (5-40) Alanine Aminotransferase (ALT/SGPT) 17 U/L (3-41) Alkaline Phosphatase 47 U/L (40-129) Total Creatine Kinase 56 U/L (38-174) Troponin I 0.75 ng/mL (<=0.30) *H Total Protein 6.4 g/dL (6.6-8.7) L Albumin 2.8 g/dL (3.5-5.2) L Globulin 3.6 g/dL Albumin/Globulin Ratio 0.7 (1.0-2.7) L Triglycerides Level 60 mg/dL (< 150) Cholesterol Level 128 mg/dL (< 200) LDL Cholesterol 91 mg/dL (60-99) HDL Cholesterol 25 mg/dL (> 60) Cholesterol/HDL Ratio 5.1 (3.3-4.4) H Height (Feet): 5 Height (Inches): 10.00 Weight (Pounds): 112 Medications Current Medications Medications (Trade) Dose Ordered Sig/Greta Route PRN Reason Start Time Stop Time Status Last Admin Dose Admin Acetaminophen (Tylenol) 650 mg Q4H PRN ORAL fever 05/11/17 14:45 06/10/17 14:44 Albuterol/ Ipratropium (DuoNeb 0.5-3(2.5)mg/3ml) 3 ml Q4H PRN HHN Shortness of Breath 05/11/17 14:45 05/16/17 14:44 Amlodipine Besylate (Norvasc) 5 mg DAILY GT 05/12/17 09:00 06/11/17 08:59 Aspirin (ASA) 81 mg DAILY NG 05/12/17 09:00 06/11/17 08:59 05/12/17 09:01 Atorvastatin Calcium (Lipitor) 10 mg BEDTIME GT 05/11/17 21:00 06/10/17 20:59 05/11/17 21:01 Cefepime HCl 2 gm/ Dextrose 110 ml @ 220 mls/hr Q12HR@0900,2100 IV 05/11/17 21:00 05/18/17 20:59 05/12/17 09:01 Heparin Sodium (Porcine) (Heparin 5000 units/ml) 5,000 units EVERY 12 HOURS SUBQ 05/11/17 21:00 06/10/17 20:59 05/12/17 09:03 Memantine (Namenda) 10 mg DAILY GT 05/12/17 09:00 06/11/17 08:59 05/12/17 09:01 Metoprolol Tartrate (Lopressor) 12.5 mg Q12HR GT 05/11/17 21:00 06/10/17 20:59 05/11/17 21:01 Morphine Sulfate (Morphine Sulfate) 2 mg Q4H PRN IVP Moderate Pain (Pain Scale 4-6) 05/11/17 14:45 05/18/17 14:44 Ondansetron HCl (Zofran) 4 mg Q6H PRN IVP Nausea & Vomiting 05/11/17 14:45 06/10/17 14:44 Phenazopyridine HCl (Pyridium) 100 mg DAILYPRN PRN GT dysuria 05/11/17 17:30 06/10/17 14:44 Polyethylene Glycol (Miralax) 17 gm DAILYPRN PRN GT Constipation 05/11/17 17:30 06/10/17 14:44 Temazepam (Restoril) 15 mg HSPRN PRN GT Insomnia 05/11/17 17:30 05/18/17 14:44 Vancomycin HCl (Vanco rx to dose) 1 ea DAILYPRN PRN MISC RX PROTOCOL 05/11/17 17:15 06/10/17 17:14 Vancomycin HCl 1 gm/Dextrose 275 ml @ 183.3 mls/ hr Q12HR@0600,1800 IVPB 05/11/17 18:00 05/16/17 17:59 05/12/17 05:53 Assessment/Plan Problem List: (1) Sepsis ICD Codes: A41.9 - Sepsis, unspecified organism SNOMED: 84095546 (2) NSTEMI (non-ST elevated myocardial infarction) ICD Codes: I21.4 - Non-ST elevation (NSTEMI) myocardial infarction SNOMED: 902240699 (3) Pneumonia ICD Codes: J18.9 - Pneumonia, unspecified organism SNOMED: 922463162 Qualifiers: Qualified Codes: J18.9 - Pneumonia, unspecified organism (4) Alzheimer disease ICD Codes: G30.9 - Alzheimer's disease, unspecified SNOMED: 14031063 (5) Feeding by G-tube ICD Codes: Z93.1 - Gastrostomy status SNOMED: 119574261, 710022734 Assessment/Plan iv abx barros culture 2d echo iv fluids dvt prophylaxis BESSY PERKINS May 12, 2017 11:23
--- NOTE | 2017-05-12 11:26 | Pulmonology Progress Note ---
Assessment/Plan Problems: (1) Sepsis (2) NSTEMI (non-ST elevated myocardial infarction) (3) Pneumonia (4) Alzheimer disease (5) Feeding by G-tube Assessment/Plan d/w at bed site, she doesn't want aggressive treatment social service consult for family meeting she might consider d/c feeding and do only "comfort meds" Subjective ROS Limited/Unobtainable: Yes Interval Events: looks comfortable Allergies: Coded Allergies: No Known Allergies (Unverified , 05/11/17) Objective Last 24 Hour Vital Signs Date Time Temp Pulse Resp B/P (MAP) Pulse Ox O2 Delivery O2 Flow Rate FiO2 05/12/17 09:00 65 103/61 05/12/17 09:00 65 103/61 05/12/17 08:00 97.5 71 19 103/61 98 Venturi Mask 7.0 35 05/12/17 08:00 65 05/12/17 07:37 Venturi Mask 8.0 35 05/12/17 07:37 97 Venturi Mask 8.0 35 05/12/17 07:35 68 16 Venturi Mask 8.0 35 05/12/17 03:46 58 05/12/17 03:36 97.7 66 18 98/62 98 Venturi Mask 8.0 35 05/12/17 00:18 98.1 62 18 111/58 95 Simple Mask 05/11/17 23:15 60 05/11/17 21:01 67 112/70 05/11/17 20:15 97.0 67 17 112/70 100 Simple Mask 05/11/17 20:00 62 05/11/17 19:07 Non-Rebreather 15.0 100 05/11/17 19:07 100 Non-Rebreather 15.0 100 05/11/17 19:07 68 18 Non-Rebreather 15.0 100 05/11/17 17:03 98.0 74 20 113/70 94 Nasal Cannula 4.0 05/11/17 16:30 99.0 69 20 107/81 100 Simple Mask 10.0 05/11/17 15:08 99.0 77 20 108/76 96 Nasal Cannula 4.0 05/11/17 12:34 99.6 105 20 115/77 96 Nasal Cannula 4.0 05/11/17 12:26 105 20 115/77 96 Nasal Cannula 4.0 Intake and Output 05/12/17 05/13/17 19:00 07:00 Output Total 375 ml Balance -375 ml Output Urine Total 375 ml General Appearance: cachetic HEENT: normocephalic, atraumatic Respiratory/Chest: chest wall non-tender, lungs clear Cardiovascular: normal peripheral pulses, normal rate Abdomen: normal bowel sounds, soft, non tender Genitourinary: normal external genitalia Extremities: no cyanosis Skin: no rash Neurologic/Psychiatric: category planner II-XII grossly normal, no motor/sensory deficits Lymphatic: no neck adenopathy Laboratory Tests 05/11/17 13:10: White Blood Count 22.1*H, Red Blood Count 3.87L, Hemoglobin 12.5L, Hematocrit 38.0L, Mean Corpuscular Volume 98, Mean Corpuscular Hemoglobin 32.4H, Mean Corpuscular Hemoglobin Concent 33.0, Red Cell Distribution Width 11.8, Platelet Count 298, Mean Platelet Volume 7.9, Neutrophils (%) (Auto) , Lymphocytes (%) ( Auto) , Monocytes (%) (Auto) , Eosinophils (%) (Auto) , Basophils (%) (Auto) , Differential Total Cells Counted 100, Neutrophils % (Manual) 84H, Lymphocytes % (Manual) 9L, Monocytes % (Manual) 5, Eosinophils % (Manual) 0, Basophils % ( Manual) 0, Band Neutrophils 2, Platelet Estimate Adequate, Platelet Morphology Normal, Macrocytosis 1+, Sodium Level 138, Potassium Level 4.1, Chloride Level 99, Carbon Dioxide Level 27, Anion Gap 12, Blood Urea Nitrogen 9, Creatinine 0.7 , Estimat Glomerular Filtration Rate > 60, Glucose Level 115H, Lactic Acid Level 1.30, Calcium Level 9.5, Total Bilirubin 0.8, Aspartate Amino Transf (AST/ SGOT) 22, Alanine Aminotransferase (ALT/SGPT) 23, Alkaline Phosphatase 58, Total Creatine Kinase 69, Creatine Kinase MB 3.0, Creatine Kinase MB Relative Index 4.3, Troponin I 0.71*H, Pro-B-Type Natriuretic Peptide 1907H, Total Protein 7.3, Albumin 3.4L, Globulin 3.9, Albumin/Globulin Ratio 0.8L 05/11/17 13:45: Urine Color Yellow, Urine Appearance Slightly cloudy, Urine pH 6.5, Urine Specific [place] 1.015, Urine Protein Negative, Urine Glucose (UA) Negative, Urine Ketones Negative, Urine Occult Blood Negative, Urine Nitrite Negative, Urine Bilirubin Negative, Urine Urobilinogen Normal, Urine Leukocyte Esterase Negative 05/11/17 21:05: Troponin I 0.87*H 05/11/17 22:00: Urine Color Pale yellow, Urine Appearance Clear, Urine pH 7, Urine Specific [place] 1.010, Urine Protein Negative, Urine Glucose (UA) Negative, Urine Ketones Negative, Urine Occult Blood 2+H, Urine Nitrite Negative, Urine Bilirubin Negative, Urine Urobilinogen Normal, Urine Leukocyte Esterase 1+H, Urine RBC 5-10H, Urine WBC 2-4, Urine Squamous Epithelial Cells None, Urine Amorphous Sediment FewH, Urine Bacteria ModerateH 05/12/17 05:10: White Blood Count 11.5H, Red Blood Count 3.28L, Hemoglobin 10.5L, Hematocrit 32.4L, Mean Corpuscular Volume 99, Mean Corpuscular Hemoglobin 32.0H, Mean Corpuscular Hemoglobin Concent 32.4, Red Cell Distribution Width 11.7, Platelet Count 257, Mean Platelet Volume 7.7, Neutrophils (%) (Auto) 74.3, Lymphocytes (% ) (Auto) 16.9L, Monocytes (%) (Auto) 6.4, Eosinophils (%) (Auto) 1.8, Basophils (%) (Auto) 0.7, Sodium Level 139, Potassium Level 3.6, Chloride Level 105, Carbon Dioxide Level 25, Anion Gap 9, Blood Urea Nitrogen 7, Creatinine 0.6L, Estimat Glomerular Filtration Rate > 60, Glucose Level 118H, Calcium Level 9.0, Total Bilirubin 0.4, Aspartate Amino Transf (AST/SGOT) 15, Alanine Aminotransferase (ALT/SGPT) 17, Alkaline Phosphatase 47, Total Creatine Kinase 56, Troponin I 0.75*H, Total Protein 6.4L, Albumin 2.8L, Globulin 3.6, Albumin/ Globulin Ratio 0.7L, Triglycerides Level 60, Cholesterol Level 128, LDL Cholesterol 91, HDL Cholesterol 25, Cholesterol/HDL Ratio 5.1H Current Medications Medications (Trade) Dose Ordered Sig/Greta Route PRN Reason Start Time Stop Time Status Last Admin Dose Admin Acetaminophen (Tylenol) 650 mg Q4H PRN ORAL fever 05/11/17 14:45 06/10/17 14:44 Albuterol/ Ipratropium (DuoNeb 0.5-3(2.5)mg/3ml) 3 ml Q4H PRN HHN Shortness of Breath 05/11/17 14:45 05/16/17 14:44 Amlodipine Besylate (Norvasc) 5 mg DAILY GT 05/12/17 09:00 06/11/17 08:59 Aspirin (ASA) 81 mg DAILY NG 05/12/17 09:00 06/11/17 08:59 05/12/17 09:01 Atorvastatin Calcium (Lipitor) 10 mg BEDTIME GT 05/11/17 21:00 06/10/17 20:59 05/11/17 21:01 Cefepime HCl 2 gm/ Dextrose 110 ml @ 220 mls/hr Q12HR@0900,2100 IV 05/11/17 21:00 05/18/17 20:59 05/12/17 09:01 Heparin Sodium (Porcine) (Heparin 5000 units/ml) 5,000 units EVERY 12 HOURS SUBQ 05/11/17 21:00 06/10/17 20:59 05/12/17 09:03 Memantine (Namenda) 10 mg DAILY GT 05/12/17 09:00 06/11/17 08:59 05/12/17 09:01 Metoprolol Tartrate (Lopressor) 12.5 mg Q12HR GT 05/11/17 21:00 06/10/17 20:59 05/11/17 21:01 Morphine Sulfate (Morphine Sulfate) 2 mg Q4H PRN IVP Moderate Pain (Pain Scale 4-6) 05/11/17 14:45 05/18/17 14:44 Ondansetron HCl (Zofran) 4 mg Q6H PRN IVP Nausea & Vomiting 05/11/17 14:45 06/10/17 14:44 Phenazopyridine HCl (Pyridium) 100 mg DAILYPRN PRN GT dysuria 05/11/17 17:30 06/10/17 14:44 Polyethylene Glycol (Miralax) 17 gm DAILYPRN PRN GT Constipation 05/11/17 17:30 06/10/17 14:44 Temazepam (Restoril) 15 mg HSPRN PRN GT Insomnia 05/11/17 17:30 05/18/17 14:44 Vancomycin HCl (Vanco rx to dose) 1 ea DAILYPRN PRN MISC RX PROTOCOL 05/11/17 17:15 06/10/17 17:14 Vancomycin HCl 1 gm/Dextrose 275 ml @ 183.3 mls/ hr Q12HR@0600,1800 IVPB 05/11/17 18:00 05/16/17 17:59 05/12/17 05:53 BESSY PERKINS May 12, 2017 11:26
--- NOTE | 2017-05-12 13:50 | General Progress Note ---
Assessment/Plan Problem List: (1) UTI (urinary tract infection) ICD Codes: N39.0 - Urinary tract infection, site not specified SNOMED: 84647330 (2) Fever ICD Codes: R50.9 - Fever, unspecified SNOMED: 546095582 (3) HTN (hypertension) ICD Codes: I10 - Essential (primary) hypertension SNOMED: 22761475 (4) Weak ICD Codes: R53.1 - Weakness SNOMED: 11367592 (5) Altered level of consciousness ICD Codes: R40.4 - Transient alteration of awareness SNOMED: 9422640 (6) Sepsis ICD Codes: A41.9 - Sepsis, unspecified organism SNOMED: 95849093 Status: unchanged Assessment/Plan o2 pulm tx abx cbc bmp am dc plan w hospice Subjective Constitutional: Reports: weakness Allergies: Coded Allergies: No Known Allergies (Unverified , 05/11/17) All Systems: reviewed and negative except above Subjective 02nc altered Objective Last 24 Hour Vital Signs Date Time Temp Pulse Resp B/P (MAP) Pulse Ox O2 Delivery O2 Flow Rate FiO2 05/12/17 12:00 98.1 65 18 91/53 100 Venturi Mask 7.0 35 05/12/17 11:40 69 05/12/17 09:00 65 103/61 05/12/17 09:00 65 103/61 05/12/17 08:00 97.5 71 19 103/61 98 Venturi Mask 7.0 35 05/12/17 08:00 65 05/12/17 07:37 Venturi Mask 8.0 35 05/12/17 07:37 97 Venturi Mask 8.0 35 05/12/17 07:35 68 16 Venturi Mask 8.0 35 05/12/17 03:46 58 05/12/17 03:36 97.7 66 18 98/62 98 Venturi Mask 8.0 35 05/12/17 00:18 98.1 62 18 111/58 95 Simple Mask 05/11/17 23:15 60 05/11/17 21:01 67 112/70 05/11/17 20:15 97.0 67 17 112/70 100 Simple Mask 05/11/17 20:00 62 05/11/17 19:07 Non-Rebreather 15.0 100 05/11/17 19:07 100 Non-Rebreather 15.0 100 05/11/17 19:07 68 18 Non-Rebreather 15.0 100 05/11/17 17:03 98.0 74 20 113/70 94 Nasal Cannula 4.0 05/11/17 16:30 99.0 69 20 107/81 100 Simple Mask 10.0 05/11/17 15:08 99.0 77 20 108/76 96 Nasal Cannula 4.0 Intake and Output 05/12/17 05/13/17 19:00 07:00 Output Total 375 ml Balance -375 ml Output Urine Total 375 ml Laboratory Tests 05/11/17 21:05: Troponin I 0.87*H 05/11/17 22:00: Urine Color Pale yellow, Urine Appearance Clear, Urine pH 7, Urine Specific [place] 1.010, Urine Protein Negative, Urine Glucose (UA) Negative, Urine Ketones Negative, Urine Occult Blood 2+H, Urine Nitrite Negative, Urine Bilirubin Negative, Urine Urobilinogen Normal, Urine Leukocyte Esterase 1+H, Urine RBC 5-10H, Urine WBC 2-4, Urine Squamous Epithelial Cells None, Urine Amorphous Sediment FewH, Urine Bacteria ModerateH 05/12/17 05:10: Troponin I 0.75*H, White Blood Count 11.5H, Red Blood Count 3.28L, Hemoglobin 10.5L, Hematocrit 32.4L, Mean Corpuscular Volume 99, Mean Corpuscular Hemoglobin 32.0H, Mean Corpuscular Hemoglobin Concent 32.4, Red Cell Distribution Width 11.7, Platelet Count 257, Mean Platelet Volume 7.7, Neutrophils (%) (Auto) 74.3, Lymphocytes (%) (Auto) 16.9L, Monocytes (%) (Auto) 6.4, Eosinophils (%) (Auto) 1.8, Basophils (%) (Auto) 0.7, Sodium Level 139, Potassium Level 3.6, Chloride Level 105, Carbon Dioxide Level 25, Anion Gap 9, Blood Urea Nitrogen 7, Creatinine 0.6L, Estimat Glomerular Filtration Rate > 60 , Glucose Level 118H, Calcium Level 9.0, Total Bilirubin 0.4, Aspartate Amino Transf (AST/SGOT) 15, Alanine Aminotransferase (ALT/SGPT) 17, Alkaline Phosphatase 47, Total Creatine Kinase 56, Total Protein 6.4L, Albumin 2.8L, Globulin 3.6, Albumin/Globulin Ratio 0.7L, Triglycerides Level 60, Cholesterol Level 128, LDL Cholesterol 91, HDL Cholesterol 25, Cholesterol/HDL Ratio 5.1H 05/12/17 13:05: Troponin I [Pending] Height (Feet): 5 Height (Inches): 10.00 Weight (Pounds): 112 General Appearance: lethargic EENT: normal ENT inspection Neck: normal alignment Cardiovascular: normal peripheral pulses, normal rate, regular rhythm Respiratory/Chest: chest wall non-tender, lungs clear, normal breath sounds Abdomen: normal bowel sounds, non tender, soft Extremities: normal inspection Edema: no edema noted Arm (L), no edema noted Arm (R), no edema noted Leg (L), no edema noted Leg (R), no edema noted Pedal (L), no edema noted Pedal (R), no edema noted Generalized Neurologic: motor weakness Skin: normal pigmentation, warm/dry ARLENE MANCIA May 12, 2017 13:50
[2017-05-12 13:57] LABS: TROPONIN I 0.62 ng/mL (<=0.30)
[2017-05-12] MEDS ORDERED: Morphine Sulfate 2mg/ml Inj IVP PRN (14:30)
--- NOTE | 2017-05-12 15:05 | Infectious Diseases Prog Note ---
Assessment/Plan Problems: (1) Sepsis Assessment & Plan: await blood culture , continue vancomycin and cefepime for now (2) Pneumonia Assessment & Plan: on vancomycin and cefepime , monitor CXR (3) NSTEMI (non-ST elevated myocardial infarction) Assessment & Plan: recommend cardiology consult for evaluation Subjective ROS Limited/Unobtainable: Yes Allergies: Coded Allergies: No Known Allergies (Unverified , 05/11/17) Subjective he was lying in bed, unresponsive, on high flow oxygen via mask Objective Vital Signs Last 24 Hour Vital Signs Date Time Temp Pulse Resp B/P (MAP) Pulse Ox O2 Delivery O2 Flow Rate FiO2 05/12/17 12:00 98.1 65 18 91/53 100 Venturi Mask 7.0 35 05/12/17 11:40 69 05/12/17 09:00 65 103/61 05/12/17 09:00 65 103/61 05/12/17 08:00 97.5 71 19 103/61 98 Venturi Mask 7.0 35 05/12/17 08:00 65 05/12/17 07:37 Venturi Mask 8.0 35 05/12/17 07:37 97 Venturi Mask 8.0 35 05/12/17 07:35 68 16 Venturi Mask 8.0 35 05/12/17 03:46 58 05/12/17 03:36 97.7 66 18 98/62 98 Venturi Mask 8.0 35 05/12/17 00:18 98.1 62 18 111/58 95 Simple Mask 05/11/17 23:15 60 05/11/17 21:01 67 112/70 05/11/17 20:15 97.0 67 17 112/70 100 Simple Mask 05/11/17 20:00 62 05/11/17 19:07 Non-Rebreather 15.0 100 05/11/17 19:07 100 Non-Rebreather 15.0 100 05/11/17 19:07 68 18 Non-Rebreather 15.0 100 05/11/17 17:03 98.0 74 20 113/70 94 Nasal Cannula 4.0 05/11/17 16:30 99.0 69 20 107/81 100 Simple Mask 10.0 05/11/17 15:08 99.0 77 20 108/76 96 Nasal Cannula 4.0 Height (Feet): 5 Height (Inches): 10.00 Weight (Pounds): 112 General Appearance: WD/WN, no acute distress, cachetic HEENT: normocephalic, atraumatic, anicteric, supple Respiratory/Chest: lungs clear, normal breath sounds, no respiratory distress, no accessory muscle use, decreased breath sounds Cardiovascular: normal peripheral pulses, normal rate, regular rhythm, no gallop/murmur, no JVD Abdomen: normal bowel sounds, soft, non tender, no organomegaly, non distended , no mass Extremities: no cyanosis, no clubbing Skin: no rash, no lesions, no ulcers Neurologic/Psychiatric: unresponsiveness Laboratory Tests Test 05/11/17 21:05 05/11/17 22:00 05/12/17 05:10 05/12/17 13:05 Troponin I 0.87 ng/mL (<=0.30) *H 0.75 ng/mL (<=0.30) *H 0.62 ng/mL (<=0.30) *H Urine Color Pale yellow Urine Appearance Clear Urine pH 7 (4.5-8.0) Urine Specific [place] 1.010 (1.005-1.035) Urine Protein Negative (NEGATIVE) Urine Glucose (UA) Negative (NEGATIVE) Urine Ketones Negative (NEGATIVE) Urine Occult Blood 2+ (NEGATIVE) H Urine Nitrite Negative (NEGATIVE) Urine Bilirubin Negative (NEGATIVE) Urine Urobilinogen Normal MG/DL (0.0-1.0) Urine Leukocyte Esterase 1+ (NEGATIVE) H Urine RBC 5-10 /HPF (0 - 0) H Urine WBC 2-4 /HPF (0 - 0) Urine Squamous Epithelial Cells None /LPF (NONE/OCC) Urine Amorphous Sediment Few /LPF (NONE) H Urine Bacteria Moderate /HPF (NONE) H White Blood Count 11.5 K/UL (4.8-10.8) H Red Blood Count 3.28 M/UL (4.70-6.10) L Hemoglobin 10.5 G/DL (14.2-18.0) L Hematocrit 32.4 % (42.0-52.0) L Mean Corpuscular Volume 99 FL (80-99) Mean Corpuscular Hemoglobin 32.0 PG (27.0-31.0) H Mean Corpuscular Hemoglobin Concent 32.4 G/DL (32.0-36.0) Red Cell Distribution Width 11.7 % (11.6-14.8) Platelet Count 257 K/UL (150-450) Mean Platelet Volume 7.7 FL (6.5-10.1) Neutrophils (%) (Auto) 74.3 % (45.0-75.0) Lymphocytes (%) (Auto) 16.9 % (20.0-45.0) L Monocytes (%) (Auto) 6.4 % (1.0-10.0) Eosinophils (%) (Auto) 1.8 % (0.0-3.0) Basophils (%) (Auto) 0.7 % (0.0-2.0) Sodium Level 139 mEQ/L (135-145) Potassium Level 3.6 mEQ/L (3.4-4.9) Chloride Level 105 mEQ/L (98-107) Carbon Dioxide Level 25 mEQ/L (20-30) Anion Gap 9 (5-15) Blood Urea Nitrogen 7 mg/dL (7-23) Creatinine 0.6 mg/dL (0.7-1.2) L Estimat Glomerular Filtration Rate > 60 mL/min (>60) Glucose Level 118 mg/dL (74-106) H Calcium Level 9.0 mg/dL (8.6-10.2) Total Bilirubin 0.4 mg/dL (0.0-1.2) Aspartate Amino Transf (AST/SGOT) 15 U/L (5-40) Alanine Aminotransferase (ALT/SGPT) 17 U/L (3-41) Alkaline Phosphatase 47 U/L (40-129) Total Creatine Kinase 56 U/L (38-174) Total Protein 6.4 g/dL (6.6-8.7) L Albumin 2.8 g/dL (3.5-5.2) L Globulin 3.6 g/dL Albumin/Globulin Ratio 0.7 (1.0-2.7) L Triglycerides Level 60 mg/dL (< 150) Cholesterol Level 128 mg/dL (< 200) LDL Cholesterol 91 mg/dL (60-99) HDL Cholesterol 25 mg/dL (> 60) Cholesterol/HDL Ratio 5.1 (3.3-4.4) H Current Medications Medications (Trade) Dose Ordered Sig/Greta Route PRN Reason Start Time Stop Time Status Last Admin Dose Admin Acetaminophen (Tylenol) 650 mg Q4H PRN ORAL fever 05/11/17 14:45 06/10/17 14:44 Albuterol/ Ipratropium (DuoNeb 0.5-3(2.5)mg/3ml) 3 ml Q4H PRN HHN Shortness of Breath 05/11/17 14:45 05/16/17 14:44 Amlodipine Besylate (Norvasc) 5 mg DAILY GT 05/12/17 09:00 06/11/17 08:59 Aspirin (ASA) 81 mg DAILY NG 05/12/17 09:00 06/11/17 08:59 05/12/17 09:01 Atorvastatin Calcium (Lipitor) 10 mg BEDTIME GT 05/11/17 21:00 06/10/17 20:59 05/11/17 21:01 Cefepime HCl 2 gm/ Dextrose 110 ml @ 220 mls/hr Q12HR@0900,2100 IV 05/11/17 21:00 05/18/17 20:59 05/12/17 09:01 Heparin Sodium (Porcine) (Heparin 5000 units/ml) 5,000 units EVERY 12 HOURS SUBQ 05/11/17 21:00 06/10/17 20:59 05/12/17 09:03 Memantine (Namenda) 10 mg DAILY GT 05/12/17 09:00 06/11/17 08:59 05/12/17 09:01 Metoprolol Tartrate (Lopressor) 12.5 mg Q12HR GT 05/11/17 21:00 06/10/17 20:59 05/11/17 21:01 Morphine Sulfate (Morphine Sulfate) 2 mg Q4H PRN IVP Moderate Pain (Pain Scale 4-6) 05/11/17 14:45 05/18/17 14:44 Ondansetron HCl (Zofran) 4 mg Q6H PRN IVP Nausea & Vomiting 05/11/17 14:45 06/10/17 14:44 Phenazopyridine HCl (Pyridium) 100 mg DAILYPRN PRN GT dysuria 05/11/17 17:30 06/10/17 14:44 Polyethylene Glycol (Miralax) 17 gm DAILYPRN PRN GT Constipation 05/11/17 17:30 06/10/17 14:44 Temazepam (Restoril) 15 mg HSPRN PRN GT Insomnia 05/11/17 17:30 05/18/17 14:44 Vancomycin HCl (Vanco rx to dose) 1 ea DAILYPRN PRN MISC RX PROTOCOL 05/11/17 17:15 06/10/17 17:14 Vancomycin HCl 1 gm/Dextrose 275 ml @ 183.3 mls/ hr Q12HR@0600,1800 IVPB 05/11/17 18:00 05/16/17 17:59 05/12/17 05:53 Tavo Chopra M.D. May 12, 2017 15:05
--- NOTE | 2017-05-12 15:09 | Cardiology Report ---
APPROVED REPORT EXAM: Two-dimensional and M-mode echocardiogram with Doppler and color Doppler. INDICATION Sepsis Technically difficult study due to poor acoustical windows. All views are subcostal with G-tube site blocking scan area. M-mode measurements of left ventricle not obtainable due to cardiac position (angle) Normal left ventricular chamber size, systolic function and wall motion to extent visualized. Left ventricular ejection fraction estimated to be 55 %. Study quality precludes accurate assessment of regional wall motion. Mild left ventricular hypertrophy by 2-D. No evidence of pericardial effusion. All other cardiac chamber sizes are within normal limits. Focal aortic valve sclerosis with adequate cusp excursion. Thickened mitral valve leaflets with normal excursion. Mitral annulus and aortic root calcification. Pulmonic valve not well visualized. Normal tricuspid valve structure. IVC not obtainable. A color flow and spectral Doppler study was performed and revealed: Trace aortic regurgitation. Mild mitral regurgitation. Mitral diastolic velocities suggest reduced left ventricular relaxation c/w mild LV diastolic dysfunction (Grade I ). Mild tricuspid regurgitation. Tricuspid systolic velocities suggests peak right ventricular systolic pressure of 30 mmHg.
--- NOTE | 2017-05-12 15:45 | Cardiology Report ---
APPROVED REPORT EKG Measurement Heart [id number] Normal sinus rhythm Abnormal ECG
--- NOTE | 2017-05-12 16:11 | Cardiology Report ---
APPROVED REPORT EKG Measurement Heart [id number] Normal sinus rhythm Possible Inferior infarct, age undetermined Abnormal ECG
--- NOTE | 2017-05-12 17:43 | Cardiac Electrophysiology PN ---
Assessment/Plan Assessment/Plan 1. Elevated troponin 0.8,0.7,0.7 and 0.6. Levels are flat and nonspecific. The patient's CPKs are negative and the EKG does not show any acute ischemic changes. The patient is nonverbal. We will treat the patient medically with aspirin and Lopressor 12.5 mg b.i.d. 2. History of hypertension, on Norvasc 5 mg daily and Lopressor 12.5 mg b.i.d. 3. Sepsis, elevated white count, on vancomycin and cefepime. 4. Dysphagia, status post percutaneous endoscopic gastrostomy placement. 5. Chronic encephalopathy and Alzheimer's. DW at bedside. Considering hospice care and sending back to SNF Subjective Subjective In SDU. Nonverbal on face mask. at bedside. Objective Last 24 Hour Vital Signs Date Time Temp Pulse Resp B/P (MAP) Pulse Ox O2 Delivery O2 Flow Rate FiO2 05/12/17 16:35 97.9 74 18 82/53 96 Venturi Mask 7.0 35 05/12/17 16:00 76 05/12/17 12:00 98.1 65 18 91/53 100 Venturi Mask 7.0 35 05/12/17 11:40 69 05/12/17 09:00 65 103/61 05/12/17 09:00 65 103/61 05/12/17 08:00 97.5 71 19 103/61 98 Venturi Mask 7.0 35 05/12/17 08:00 65 05/12/17 07:37 Venturi Mask 8.0 35 05/12/17 07:37 97 Venturi Mask 8.0 35 05/12/17 07:35 68 16 Venturi Mask 8.0 35 05/12/17 03:46 58 05/12/17 03:36 97.7 66 18 98/62 98 Venturi Mask 8.0 35 05/12/17 00:18 98.1 62 18 111/58 95 Simple Mask 05/11/17 23:15 60 05/11/17 21:01 67 112/70 05/11/17 20:15 97.0 67 17 112/70 100 Simple Mask 05/11/17 20:00 62 05/11/17 19:07 Non-Rebreather 15.0 100 05/11/17 19:07 100 Non-Rebreather 15.0 100 05/11/17 19:07 68 18 Non-Rebreather 15.0 100 Intake and Output 05/12/17 05/13/17 19:00 07:00 Output Total 375 ml Balance -375 ml Output Urine Total 375 ml Laboratory Tests Test 05/11/17 21:05 05/11/17 22:00 05/12/17 05:10 05/12/17 13:05 Troponin I 0.87 ng/mL (<=0.30) *H 0.75 ng/mL (<=0.30) *H 0.62 ng/mL (<=0.30) *H Urine Color Pale yellow Urine Appearance Clear Urine pH 7 (4.5-8.0) Urine Specific [place] 1.010 (1.005-1.035) Urine Protein Negative (NEGATIVE) Urine Glucose (UA) Negative (NEGATIVE) Urine Ketones Negative (NEGATIVE) Urine Occult Blood 2+ (NEGATIVE) H Urine Nitrite Negative (NEGATIVE) Urine Bilirubin Negative (NEGATIVE) Urine Urobilinogen Normal MG/DL (0.0-1.0) Urine Leukocyte Esterase 1+ (NEGATIVE) H Urine RBC 5-10 /HPF (0 - 0) H Urine WBC 2-4 /HPF (0 - 0) Urine Squamous Epithelial Cells None /LPF (NONE/OCC) Urine Amorphous Sediment Few /LPF (NONE) H Urine Bacteria Moderate /HPF (NONE) H White Blood Count 11.5 K/UL (4.8-10.8) H Red Blood Count 3.28 M/UL (4.70-6.10) L Hemoglobin 10.5 G/DL (14.2-18.0) L Hematocrit 32.4 % (42.0-52.0) L Mean Corpuscular Volume 99 FL (80-99) Mean Corpuscular Hemoglobin 32.0 PG (27.0-31.0) H Mean Corpuscular Hemoglobin Concent 32.4 G/DL (32.0-36.0) Red Cell Distribution Width 11.7 % (11.6-14.8) Platelet Count 257 K/UL (150-450) Mean Platelet Volume 7.7 FL (6.5-10.1) Neutrophils (%) (Auto) 74.3 % (45.0-75.0) Lymphocytes (%) (Auto) 16.9 % (20.0-45.0) L Monocytes (%) (Auto) 6.4 % (1.0-10.0) Eosinophils (%) (Auto) 1.8 % (0.0-3.0) Basophils (%) (Auto) 0.7 % (0.0-2.0) Sodium Level 139 mEQ/L (135-145) Potassium Level 3.6 mEQ/L (3.4-4.9) Chloride Level 105 mEQ/L (98-107) Carbon Dioxide Level 25 mEQ/L (20-30) Anion Gap 9 (5-15) Blood Urea Nitrogen 7 mg/dL (7-23) Creatinine 0.6 mg/dL (0.7-1.2) L Estimat Glomerular Filtration Rate > 60 mL/min (>60) Glucose Level 118 mg/dL (74-106) H Calcium Level 9.0 mg/dL (8.6-10.2) Total Bilirubin 0.4 mg/dL (0.0-1.2) Aspartate Amino Transf (AST/SGOT) 15 U/L (5-40) Alanine Aminotransferase (ALT/SGPT) 17 U/L (3-41) Alkaline Phosphatase 47 U/L (40-129) Total Creatine Kinase 56 U/L (38-174) Total Protein 6.4 g/dL (6.6-8.7) L Albumin 2.8 g/dL (3.5-5.2) L Globulin 3.6 g/dL Albumin/Globulin Ratio 0.7 (1.0-2.7) L Triglycerides Level 60 mg/dL (< 150) Cholesterol Level 128 mg/dL (< 200) LDL Cholesterol 91 mg/dL (60-99) HDL Cholesterol 25 mg/dL (> 60) Cholesterol/HDL Ratio 5.1 (3.3-4.4) H Objective NECK: Shows no JVD. LUNGS: Coarse rhonchi. CARDIOVASCULAR: Regular S1 and S2 with no gallop or murmur. ABDOMEN: Status post G-tube. EXTREMITIES: No pitting edema. TYSON NOVOA May 12, 2017 17:43
[2017-05-12] MEDS ORDERED: Vancomycin 1 GM in D5W 275 ML IVPB SCH (22:30)
[2017-05-13 03:46] VITALS: BP 94/59
[2017-05-13 05:48] LABS: MEAN CORPUSCULAR HEMOGLOBIN 33.3 PG (27.0-31.0); MEAN CORPUSCULAR HGB CONC 32.8 G/DL (32.0-36.0); MEAN CORPUSCULAR VOLUME 102 FL (80-99); MEAN PLATELET VOLUME 6.5 FL (6.5-10.1); PLATELET COUNT 339 K/UL (150-450); RED BLOOD COUNT 2.52 M/UL (4.70-6.10); WHITE BLOOD COUNT 21.1 K/UL (4.8-10.8)
[2017-05-13 06:07] LABS: ANION GAP 10 (5-15); CARBON DIOXIDE 25 mEQ/L (20-30); CHLORIDE 106 mEQ/L (98-107); CREATININE 0.6 mg/dL (0.7-1.2); GLOMERULAR FILTRATION RATE > 60 mL/min (>60); HEMOLYSIS 6; POTASSIUM 4.2 mEQ/L (3.4-4.9); SODIUM 141 mEQ/L (135-145)
[2017-05-13 07:24] LABS: BAND NEUTROPHILS % (MANUAL) 15 % (0-8); BASOPHILS % (MANUAL) 1 % (0-2); EOSINOPHILS % (MANUAL) 0 % (0-3); LYMPHOCYTES % (MANUAL) 7 % (20-45); NEUTROPHILS % (MANUAL) 64 % (45-75); PLATELET ESTIMATE ADEQUATE; PLATELET MORPHOLOGY NORMAL; TOTAL CELLS COUNTED 100
[2017-05-13 07:25] LABS: MACROCYTES 1+
[2017-05-13 07:55] VITALS: BP 104/56
[2017-05-13] MEDS: Memantine 10mg tab GT SCH (09:00)
[2017-05-13] MEDS: Aspirin Baby 81mg NG SCH (09:00)
[2017-05-13] MEDS: Heparin 5000 units/ml inj SUBQ SCH ×2 (09:00→21:18)
[2017-05-13] MEDS: Metoprolol Tartrate 12.5mg TAB GT SCH ×2 (09:00→21:00)
[2017-05-13] MEDS: Cefepime HCl 2 GM in D5W 110 ML IV SCH (09:01)
[2017-05-13] MEDS: Vancomycin 1250mg/D5W 250ml IVPB SCH ×2 (10:35→22:02)
--- NOTE | 2017-05-13 11:17 | Pulmonology Progress Note ---
Assessment/Plan Problems: (1) Sepsis (2) NSTEMI (non-ST elevated myocardial infarction) (3) Pneumonia (4) Alzheimer disease (5) Feeding by G-tube Assessment/Plan afebrile comfortable check cultures family meeting for plan of care med/surg she might consider d/c feeding and do only "comfort meds" Subjective Constitutional: Reports: no symptoms HEENT: Repors: no symptoms Respiratory: Reports: no symptoms Cardiovascular: Reports: no symptoms Gastrointestinal/Abdominal: Reports: no symptoms Allergies: Coded Allergies: No Known Allergies (Unverified , 05/11/17) Objective Last 24 Hour Vital Signs Date Time Temp Pulse Resp B/P (MAP) Pulse Ox O2 Delivery O2 Flow Rate FiO2 05/13/17 09:00 64 104/56 05/13/17 09:00 64 104/56 05/13/17 08:00 66 05/13/17 07:55 97.9 64 18 104/56 100 Nasal Cannula 2.0 05/13/17 06:55 66 Nasal Cannula 2.0 05/13/17 06:55 Nasal Cannula 2.0 05/13/17 06:55 66 20 Nasal Cannula 2.0 05/13/17 03:54 68 05/13/17 03:46 97.7 67 18 94/59 99 Nasal Cannula 2.0 05/12/17 23:50 61 05/12/17 23:36 97.7 60 19 103/66 100 Venturi Mask 7.0 35 05/12/17 21:14 74 117/67 05/12/17 20:00 97.3 74 19 117/67 96 Venturi Mask 7.0 35 05/12/17 20:00 76 05/12/17 19:58 Venturi Mask 8.0 35 05/12/17 19:58 72 Venturi Mask 8.0 35 05/12/17 19:57 72 20 Venturi Mask 8.0 35 05/12/17 16:35 97.9 74 18 82/53 96 Venturi Mask 7.0 35 05/12/17 16:00 76 05/12/17 12:00 98.1 65 18 91/53 100 Venturi Mask 7.0 35 05/12/17 11:40 69 Intake and Output 05/13/17 05/14/17 19:00 07:00 Intake Total 310 ml Balance 310 ml Free Water 50 ml IV Total 110 ml Tube Feeding 150 ml General Appearance: WD/WN HEENT: normocephalic, atraumatic, anicteric Respiratory/Chest: chest wall non-tender, lungs clear Cardiovascular: normal peripheral pulses, normal rate Abdomen: normal bowel sounds, soft, non tender Genitourinary: normal external genitalia Extremities: no cyanosis, no clubbing Skin: no lesions 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 grossly normal, no motor/sensory deficits, alert Lymphatic: no neck adenopathy Microbiology Date/Time Source Procedure Growth Status 05/11/17 13:10 Blood Blood Culture - Preliminary NO GROWTH AFTER 24 HOURS Resulted 05/11/17 12:55 Blood Blood Culture - Preliminary NO GROWTH AFTER 24 HOURS Resulted 05/11/17 13:40 Rectum VRE Culture - Final Enterococcus Faecium - Vre Complete Laboratory Tests 05/12/17 13:05: Troponin I 0.62*H 05/13/17 04:00: White Blood Count 21.1#H, Red Blood Count 2.52L, Hemoglobin 8.4L, Hematocrit 25.6L, Mean Corpuscular Volume 102H, Mean Corpuscular Hemoglobin 33.3H, Mean Corpuscular Hemoglobin Concent 32.8, Red Cell Distribution Width 12.0, Platelet Count 339, Mean Platelet Volume 6.5, Neutrophils (%) (Auto) , Lymphocytes (%) ( Auto) , Monocytes (%) (Auto) , Eosinophils (%) (Auto) , Basophils (%) (Auto) , Differential Total Cells Counted 100, Neutrophils % (Manual) 64, Lymphocytes % ( Manual) 7L, Monocytes % (Manual) 13H, Eosinophils % (Manual) 0, Basophils % ( Manual) 1, Band Neutrophils 15H, Platelet Estimate Adequate, Platelet Morphology Normal, Macrocytosis 1+, Sodium Level 141, Potassium Level 4.2, Chloride Level 106, Carbon Dioxide Level 25, Anion Gap 10, Blood Urea Nitrogen 10, Creatinine 0.6L, Estimat Glomerular Filtration Rate > 60, Glucose Level 106 , Calcium Level 9.0 05/13/17 09:00: Vancomycin Level Trough 10.7 Current Medications Medications (Trade) Dose Ordered Sig/Greta Route PRN Reason Start Time Stop Time Status Last Admin Dose Admin Acetaminophen (Tylenol) 650 mg Q4H PRN ORAL fever 05/11/17 14:45 06/10/17 14:44 Albuterol/ Ipratropium (DuoNeb 0.5-3(2.5)mg/3ml) 3 ml Q4H PRN HHN Shortness of Breath 05/11/17 14:45 05/16/17 14:44 Amlodipine Besylate (Norvasc) 5 mg DAILY GT 05/12/17 09:00 06/11/17 08:59 Aspirin (ASA) 81 mg DAILY NG 05/12/17 09:00 06/11/17 08:59 05/13/17 09:00 Atorvastatin Calcium (Lipitor) 10 mg BEDTIME GT 05/11/17 21:00 06/10/17 20:59 05/12/17 21:15 Cefepime HCl 2 gm/ Dextrose 110 ml @ 220 mls/hr Q12HR@0900,2100 IV 05/11/17 21:00 05/18/17 20:59 05/13/17 09:01 Heparin Sodium (Porcine) (Heparin 5000 units/ml) 5,000 units EVERY 12 HOURS SUBQ 05/11/17 21:00 06/10/17 20:59 05/13/17 09:00 Memantine (Namenda) 10 mg DAILY GT 05/12/17 09:00 06/11/17 08:59 05/13/17 09:00 Metoprolol Tartrate (Lopressor) 12.5 mg Q12HR GT 05/11/17 21:00 06/10/17 20:59 05/12/17 21:14 Morphine Sulfate (Morphine Sulfate) 2 mg Q4H PRN IVP Moderate Pain (Pain Scale 4-6) 05/11/17 14:45 05/18/17 14:44 Ondansetron HCl (Zofran) 4 mg Q6H PRN IVP Nausea & Vomiting 05/11/17 14:45 06/10/17 14:44 Phenazopyridine HCl (Pyridium) 100 mg DAILYPRN PRN GT dysuria 05/11/17 17:30 06/10/17 14:44 Polyethylene Glycol (Miralax) 17 gm DAILYPRN PRN GT Constipation 05/11/17 17:30 06/10/17 14:44 Temazepam (Restoril) 15 mg HSPRN PRN GT Insomnia 05/11/17 17:30 05/18/17 14:44 Vancomycin HCl (Vanco rx to dose) 1 ea DAILYPRN PRN MISC RX PROTOCOL 05/11/17 17:15 06/10/17 17:14 Vancomycin HCl/ Dextrose 250 ml @ 166.667 mls/hr Q12HR@1100,2300 IVPB 05/13/17 11:00 05/18/17 10:59 05/13/17 10:35 BESSY PERKINS May 13, 2017 11:17
[2017-05-13 11:50] VITALS: BP 108/64
--- NOTE | 2017-05-13 14:06 | General Progress Note ---
Assessment/Plan Problem List: (1) UTI (urinary tract infection) ICD Codes: N39.0 - Urinary tract infection, site not specified SNOMED: 58240825 (2) Fever ICD Codes: R50.9 - Fever, unspecified SNOMED: 515886247 (3) HTN (hypertension) ICD Codes: I10 - Essential (primary) hypertension SNOMED: 70471615 (4) Weak ICD Codes: R53.1 - Weakness SNOMED: 39820741 (5) Altered level of consciousness ICD Codes: R40.4 - Transient alteration of awareness SNOMED: 4553189 (6) Sepsis ICD Codes: A41.9 - Sepsis, unspecified organism SNOMED: 85817626 Status: unchanged Assessment/Plan o2 pulm tx abx cbc bmp am dc plan w hospice Subjective Constitutional: Reports: weakness Allergies: Coded Allergies: No Known Allergies (Unverified , 05/11/17) All Systems: reviewed and negative except above Subjective 02nc altered Objective Last 24 Hour Vital Signs Date Time Temp Pulse Resp B/P (MAP) Pulse Ox O2 Delivery O2 Flow Rate FiO2 05/13/17 13:05 83 05/13/17 11:50 97.7 74 18 108/64 100 Nasal Cannula 2.0 05/13/17 09:00 64 104/56 05/13/17 09:00 64 104/56 05/13/17 08:00 66 05/13/17 07:55 97.9 64 18 104/56 100 Nasal Cannula 2.0 05/13/17 06:55 66 Nasal Cannula 2.0 05/13/17 06:55 Nasal Cannula 2.0 05/13/17 06:55 66 20 Nasal Cannula 2.0 05/13/17 03:54 68 05/13/17 03:46 97.7 67 18 94/59 99 Nasal Cannula 2.0 05/12/17 23:50 61 05/12/17 23:36 97.7 60 19 103/66 100 Venturi Mask 7.0 35 05/12/17 21:14 74 117/67 05/12/17 20:00 97.3 74 19 117/67 96 Venturi Mask 7.0 35 05/12/17 20:00 76 05/12/17 19:58 Venturi Mask 8.0 35 05/12/17 19:58 72 Venturi Mask 8.0 35 05/12/17 19:57 72 20 Venturi Mask 8.0 35 05/12/17 16:35 97.9 74 18 82/53 96 Venturi Mask 7.0 35 05/12/17 16:00 76 Intake and Output 05/13/17 05/14/17 19:00 07:00 Intake Total 310 ml Balance 310 ml Free Water 50 ml IV Total 110 ml Tube Feeding 150 ml Laboratory Tests 05/13/17 04:00: White Blood Count 21.1#H, Red Blood Count 2.52L, Hemoglobin 8.4L, Hematocrit 25.6L, Mean Corpuscular Volume 102H, Mean Corpuscular Hemoglobin 33.3H, Mean Corpuscular Hemoglobin Concent 32.8, Red Cell Distribution Width 12.0, Platelet Count 339, Mean Platelet Volume 6.5, Neutrophils (%) (Auto) , Lymphocytes (%) ( Auto) , Monocytes (%) (Auto) , Eosinophils (%) (Auto) , Basophils (%) (Auto) , Differential Total Cells Counted 100, Neutrophils % (Manual) 64, Lymphocytes % ( Manual) 7L, Monocytes % (Manual) 13H, Eosinophils % (Manual) 0, Basophils % ( Manual) 1, Band Neutrophils 15H, Platelet Estimate Adequate, Platelet Morphology Normal, Macrocytosis 1+, Sodium Level 141, Potassium Level 4.2, Chloride Level 106, Carbon Dioxide Level 25, Anion Gap 10, Blood Urea Nitrogen 10, Creatinine 0.6L, Estimat Glomerular Filtration Rate > 60, Glucose Level 106 , Calcium Level 9.0 05/13/17 09:00: Vancomycin Level Trough 10.7 Height (Feet): 5 Height (Inches): 10.00 Weight (Pounds): 112 General Appearance: lethargic EENT: normal ENT inspection Neck: normal alignment Cardiovascular: normal peripheral pulses, normal rate, regular rhythm Respiratory/Chest: chest wall non-tender, lungs clear, normal breath sounds Abdomen: normal bowel sounds, non tender, soft Extremities: normal inspection Edema: no edema noted Arm (L), no edema noted Arm (R), no edema noted Leg (L), no edema noted Leg (R), no edema noted Pedal (L), no edema noted Pedal (R), no edema noted Generalized Neurologic: motor weakness Skin: normal pigmentation, warm/dry ARLENE MANCIA May 13, 2017 14:06
--- NOTE | 2017-05-13 15:59 | Infectious Diseases Prog Note ---
Assessment/Plan Problems: (1) Sepsis Assessment & Plan: with worsening WBC while on vancomycin and cefepime , will check CXR, and switch cefepime to zosyn (2) Pneumonia Assessment & Plan: on vancomycin and cefepime , will switch cefepime to zosyn, monitor CXR (3) NSTEMI (non-ST elevated myocardial infarction) Assessment & Plan: recommend cardiology consult for evaluation Subjective ROS Limited/Unobtainable: Yes Allergies: Coded Allergies: No Known Allergies (Unverified , 05/11/17) Subjective he was lying in bed, unresponsive, on high flow oxygen via mask Objective Vital Signs Last 24 Hour Vital Signs Date Time Temp Pulse Resp B/P (MAP) Pulse Ox O2 Delivery O2 Flow Rate FiO2 05/13/17 13:05 83 05/13/17 11:50 97.7 74 18 108/64 100 Nasal Cannula 2.0 05/13/17 09:00 64 104/56 05/13/17 09:00 64 104/56 05/13/17 08:00 66 05/13/17 07:55 97.9 64 18 104/56 100 Nasal Cannula 2.0 05/13/17 06:55 66 Nasal Cannula 2.0 05/13/17 06:55 Nasal Cannula 2.0 05/13/17 06:55 66 20 Nasal Cannula 2.0 05/13/17 03:54 68 05/13/17 03:46 97.7 67 18 94/59 99 Nasal Cannula 2.0 05/12/17 23:50 61 05/12/17 23:36 97.7 60 19 103/66 100 Venturi Mask 7.0 35 05/12/17 21:14 74 117/67 05/12/17 20:00 97.3 74 19 117/67 96 Venturi Mask 7.0 35 05/12/17 20:00 76 05/12/17 19:58 Venturi Mask 8.0 35 05/12/17 19:58 72 Venturi Mask 8.0 35 05/12/17 19:57 72 20 Venturi Mask 8.0 35 05/12/17 16:35 97.9 74 18 82/53 96 Venturi Mask 7.0 35 05/12/17 16:00 76 Height (Feet): 5 Height (Inches): 10.00 Weight (Pounds): 112 General Appearance: no acute distress, cachetic HEENT: normocephalic, atraumatic, anicteric, supple, no JVD Respiratory/Chest: no respiratory distress, no accessory muscle use, respiratory distress, decreased breath sounds, crackles/rales Cardiovascular: normal peripheral pulses, normal rate, regular rhythm, no gallop/murmur, no JVD Abdomen: normal bowel sounds, soft, non tender, no organomegaly, non distended , no mass, no scars Extremities: no cyanosis, no clubbing Skin: no rash, no lesions, ulcers Microbiology Date/Time Source Procedure Growth Status 05/11/17 13:10 Blood Blood Culture - Preliminary NO GROWTH AFTER 24 HOURS Resulted 05/11/17 12:55 Blood Blood Culture - Preliminary NO GROWTH AFTER 24 HOURS Resulted 05/11/17 22:00 Indwelling Cath Urine Culture - Preliminary NO GROWTH AFTER 24 HOURS Resulted 05/11/17 13:40 Rectum VRE Culture - Final Enterococcus Faecium - Vre Complete Laboratory Tests Test 05/13/17 04:00 05/13/17 09:00 White Blood Count 21.1 K/UL (4.8-10.8) #H Red Blood Count 2.52 M/UL (4.70-6.10) L Hemoglobin 8.4 G/DL (14.2-18.0) L Hematocrit 25.6 % (42.0-52.0) L Mean Corpuscular Volume 102 FL (80-99) H Mean Corpuscular Hemoglobin 33.3 PG (27.0-31.0) H Mean Corpuscular Hemoglobin Concent 32.8 G/DL (32.0-36.0) Red Cell Distribution Width 12.0 % (11.6-14.8) Platelet Count 339 K/UL (150-450) Mean Platelet Volume 6.5 FL (6.5-10.1) Neutrophils (%) (Auto) % (45.0-75.0) Lymphocytes (%) (Auto) % (20.0-45.0) Monocytes (%) (Auto) % (1.0-10.0) Eosinophils (%) (Auto) % (0.0-3.0) Basophils (%) (Auto) % (0.0-2.0) Differential Total Cells Counted 100 Neutrophils % (Manual) 64 % (45-75) Lymphocytes % (Manual) 7 % (20-45) L Monocytes % (Manual) 13 % (1-10) H Eosinophils % (Manual) 0 % (0-3) Basophils % (Manual) 1 % (0-2) Band Neutrophils 15 % (0-8) H Platelet Estimate Adequate Platelet Morphology Normal Macrocytosis 1+ Sodium Level 141 mEQ/L (135-145) Potassium Level 4.2 mEQ/L (3.4-4.9) Chloride Level 106 mEQ/L (98-107) Carbon Dioxide Level 25 mEQ/L (20-30) Anion Gap 10 (5-15) Blood Urea Nitrogen 10 mg/dL (7-23) Creatinine 0.6 mg/dL (0.7-1.2) L Estimat Glomerular Filtration Rate > 60 mL/min (>60) Glucose Level 106 mg/dL (74-106) Calcium Level 9.0 mg/dL (8.6-10.2) Vancomycin Level Trough 10.7 ug/mL (5.0-12.0) Current Medications Medications (Trade) Dose Ordered Sig/Greta Route PRN Reason Start Time Stop Time Status Last Admin Dose Admin Acetaminophen (Tylenol) 650 mg Q4H PRN ORAL fever 05/11/17 14:45 06/10/17 14:44 Albuterol/ Ipratropium (DuoNeb 0.5-3(2.5)mg/3ml) 3 ml Q4H PRN HHN Shortness of Breath 05/11/17 14:45 05/16/17 14:44 Amlodipine Besylate (Norvasc) 5 mg DAILY GT 05/12/17 09:00 06/11/17 08:59 Aspirin (ASA) 81 mg DAILY NG 05/12/17 09:00 06/11/17 08:59 05/13/17 09:00 Atorvastatin Calcium (Lipitor) 10 mg BEDTIME GT 05/11/17 21:00 06/10/17 20:59 05/12/17 21:15 Cefepime HCl 2 gm/ Dextrose 110 ml @ 220 mls/hr Q12HR@0900,2100 IV 05/11/17 21:00 05/18/17 20:59 05/13/17 09:01 Heparin Sodium (Porcine) (Heparin 5000 units/ml) 5,000 units EVERY 12 HOURS SUBQ 05/11/17 21:00 06/10/17 20:59 05/13/17 09:00 Memantine (Namenda) 10 mg DAILY GT 05/12/17 09:00 06/11/17 08:59 05/13/17 09:00 Metoprolol Tartrate (Lopressor) 12.5 mg Q12HR GT 05/11/17 21:00 06/10/17 20:59 05/12/17 21:14 Morphine Sulfate (Morphine Sulfate) 2 mg Q4H PRN IVP Moderate Pain (Pain Scale 4-6) 05/11/17 14:45 05/18/17 14:44 Ondansetron HCl (Zofran) 4 mg Q6H PRN IVP Nausea & Vomiting 05/11/17 14:45 06/10/17 14:44 Phenazopyridine HCl (Pyridium) 100 mg DAILYPRN PRN GT dysuria 05/11/17 17:30 06/10/17 14:44 Polyethylene Glycol (Miralax) 17 gm DAILYPRN PRN GT Constipation 05/11/17 17:30 06/10/17 14:44 Temazepam (Restoril) 15 mg HSPRN PRN GT Insomnia 05/11/17 17:30 05/18/17 14:44 Vancomycin HCl (Vanco rx to dose) 1 ea DAILYPRN PRN MISC RX PROTOCOL 05/11/17 17:15 06/10/17 17:14 Vancomycin HCl/ Dextrose 250 ml @ 166.667 mls/hr Q12HR@1100,2300 IVPB 05/13/17 11:00 05/18/17 10:59 05/13/17 10:35 Tavo Chopra M.D. May 13, 2017 15:59
[2017-05-13 16:00] VITALS: BP 103/73
[2017-05-13] MEDS: Piperacillin/Tazobactam 3.375 GM in D5W 110 ML IVPB SCH ×2 (17:28→23:52)
--- NOTE | 2017-05-13 17:31 | Cardiac Electrophysiology PN ---
Assessment/Plan Assessment/Plan 1. Elevated troponin 0.8,0.7,0.7 and 0.6. Levels are flat and nonspecific. CPKs are negative and EKG does not show any acute ischemic changes. The patient is nonverbal. Continue to treat medically with aspirin and Lopressor 12.5 mg b.i.d. 2. History of hypertension, on Norvasc 5 mg daily and Lopressor 12.5 mg b.i.d. 3. Sepsis, elevated white count, on vancomycin and cefepime. 4. Dysphagia, status post percutaneous endoscopic gastrostomy placement. 5. Chronic encephalopathy and Alzheimer's. MEETA RN. Subjective Subjective In SDU. Nonverbal on face mask. Placement has been an issue.No arrhythmias on tele. Objective Last 24 Hour Vital Signs Date Time Temp Pulse Resp B/P (MAP) Pulse Ox O2 Delivery O2 Flow Rate FiO2 05/13/17 16:32 95 05/13/17 16:00 97.7 95 18 103/73 100 Nasal Cannula 2.0 05/13/17 13:05 83 05/13/17 11:50 97.7 74 18 108/64 100 Nasal Cannula 2.0 05/13/17 09:00 64 104/56 05/13/17 09:00 64 104/56 05/13/17 08:00 66 05/13/17 07:55 97.9 64 18 104/56 100 Nasal Cannula 2.0 05/13/17 06:55 66 Nasal Cannula 2.0 05/13/17 06:55 Nasal Cannula 2.0 05/13/17 06:55 66 20 Nasal Cannula 2.0 05/13/17 03:54 68 05/13/17 03:46 97.7 67 18 94/59 99 Nasal Cannula 2.0 05/12/17 23:50 61 05/12/17 23:36 97.7 60 19 103/66 100 Venturi Mask 7.0 35 05/12/17 21:14 74 117/67 05/12/17 20:00 97.3 74 19 117/67 96 Venturi Mask 7.0 35 05/12/17 20:00 76 05/12/17 19:58 Venturi Mask 8.0 35 05/12/17 19:58 72 Venturi Mask 8.0 35 05/12/17 19:57 72 20 Venturi Mask 8.0 35 Intake and Output 05/13/17 05/14/17 19:00 07:00 Intake Total 310 ml Balance 310 ml Free Water 50 ml IV Total 110 ml Tube Feeding 150 ml Laboratory Tests Test 05/13/17 04:00 05/13/17 09:00 White Blood Count 21.1 K/UL (4.8-10.8) #H Red Blood Count 2.52 M/UL (4.70-6.10) L Hemoglobin 8.4 G/DL (14.2-18.0) L Hematocrit 25.6 % (42.0-52.0) L Mean Corpuscular Volume 102 FL (80-99) H Mean Corpuscular Hemoglobin 33.3 PG (27.0-31.0) H Mean Corpuscular Hemoglobin Concent 32.8 G/DL (32.0-36.0) Red Cell Distribution Width 12.0 % (11.6-14.8) Platelet Count 339 K/UL (150-450) Mean Platelet Volume 6.5 FL (6.5-10.1) Neutrophils (%) (Auto) % (45.0-75.0) Lymphocytes (%) (Auto) % (20.0-45.0) Monocytes (%) (Auto) % (1.0-10.0) Eosinophils (%) (Auto) % (0.0-3.0) Basophils (%) (Auto) % (0.0-2.0) Differential Total Cells Counted 100 Neutrophils % (Manual) 64 % (45-75) Lymphocytes % (Manual) 7 % (20-45) L Monocytes % (Manual) 13 % (1-10) H Eosinophils % (Manual) 0 % (0-3) Basophils % (Manual) 1 % (0-2) Band Neutrophils 15 % (0-8) H Platelet Estimate Adequate Platelet Morphology Normal Macrocytosis 1+ Sodium Level 141 mEQ/L (135-145) Potassium Level 4.2 mEQ/L (3.4-4.9) Chloride Level 106 mEQ/L (98-107) Carbon Dioxide Level 25 mEQ/L (20-30) Anion Gap 10 (5-15) Blood Urea Nitrogen 10 mg/dL (7-23) Creatinine 0.6 mg/dL (0.7-1.2) L Estimat Glomerular Filtration Rate > 60 mL/min (>60) Glucose Level 106 mg/dL (74-106) Calcium Level 9.0 mg/dL (8.6-10.2) Vancomycin Level Trough 10.7 ug/mL (5.0-12.0) Microbiology Date/Time Source Procedure Growth Status 05/11/17 13:10 Blood Blood Culture - Preliminary NO GROWTH AFTER 24 HOURS Resulted 05/11/17 12:55 Blood Blood Culture - Preliminary NO GROWTH AFTER 24 HOURS Resulted 05/11/17 22:00 Indwelling Cath Urine Culture - Preliminary NO GROWTH AFTER 24 HOURS Resulted 05/11/17 13:40 Rectum VRE Culture - Final Enterococcus Faecium - Vre Complete Objective NECK: Shows no JVD.Mouth breather. LUNGS: Coarse rhonchi. CARDIOVASCULAR: Regular S1 and S2 with no gallop or murmur. ABDOMEN: Status post G-tube. EXTREMITIES: No pitting edema. TYSON NOVOA May 13, 2017 17:31
[2017-05-13 19:49] VITALS: BP 97/69
[2017-05-13 23:44] VITALS: BP 96/65
[2017-05-14] MEDS ORDERED: Morphine Sulfate 2mg/ml Inj IVP PRN (02:45)
[2017-05-14] MEDS ORDERED: DuoNeb 0.5-3(2.5)mg/3ml neb HHN PRN (02:45)
[2017-05-14 04:00] VITALS: BP 90/59
[2017-05-14] MEDS: Piperacillin/Tazobactam 3.375 GM in D5W 110 ML IVPB SCH ×3 (05:00→20:56)
[2017-05-14 08:00] VITALS: BP 89/59
[2017-05-14 08:00] LABS: BASOPHILS % (AUTO) 0.5 % (0.0-2.0); EOSINOPHILS % (AUTO) 4.4 % (0.0-3.0); LYMPHOCYTES % (AUTO) 25.7 % (20.0-45.0); MEAN CORPUSCULAR HEMOGLOBIN 32.2 PG (27.0-31.0); MEAN CORPUSCULAR VOLUME 101 FL (80-99); MEAN PLATELET VOLUME 7.6 FL (6.5-10.1); MONOCYTES % (AUTO) 8.4 % (1.0-10.0); PLATELET COUNT 225 K/UL (150-450); RED BLOOD COUNT 3.28 M/UL (4.70-6.10); RED CELL DISTRIBUTION WIDTH 11.5 % (11.6-14.8); WHITE BLOOD COUNT 8.4 K/UL (4.8-10.8)
[2017-05-14 08:14] LABS: ALANINE AMINOTRANSFERASE 17 U/L (3-41); ALBUMIN/GLOBULIN RATIO 0.8 (1.0-2.7); ANION GAP 7 (5-15); ASPARTATE AMINO TRANSFERASE 17 U/L (5-40); CALCIUM 8.9 mg/dL (8.6-10.2); CARBON DIOXIDE 30 mEQ/L (20-30); CHLORIDE 106 mEQ/L (98-107); CREATININE 0.7 mg/dL (0.7-1.2); GLOMERULAR FILTRATION RATE > 60 mL/min (>60); HEMOLYSIS 2; MAGNESIUM 2.1 mg/dL (1.7-2.5); PHOSPHORUS 3.4 mg/dL (2.5-4.8); POTASSIUM 3.8 mEQ/L (3.4-4.9); SODIUM 143 mEQ/L (135-145); TOTAL PROTEIN 6.1 g/dL (6.6-8.7)
[2017-05-14] MEDS: Metoprolol Tartrate 12.5mg TAB GT SCH ×2 (09:00→21:00)
[2017-05-14] MEDS: Memantine 10mg tab GT SCH (09:44)
[2017-05-14] MEDS: Heparin 5000 units/ml inj SUBQ SCH ×2 (09:44→21:49)
[2017-05-14] MEDS: Aspirin Baby 81mg NG SCH (09:44)
--- NOTE | 2017-05-14 10:44 | Diagnostic Imaging Report ---
Indication: Dyspnea Comparison: 05/11/17 A single view chest radiograph was obtained. Findings: Heart size is normal. Aorta is mildly calcified. Pulmonary vascularity is appropriate. The diaphragmatic contour is smooth and costophrenic angles are sharp. No pleural effusions are identified. The bones are osteopenic. Impression: No acute findings
[2017-05-14] MEDS ORDERED: Vancomycin 1250mg/D5W 250ml 250 ML IVPB SCH (11:00)
--- NOTE | 2017-05-14 11:55 | Pulmonology Progress Note ---
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 PLAN OF CARE MS floor abx ID follows urine cx negative blood culture preliminary negative sputum cx if able CXR negative ECHO with EF 55% and RVSP of 30 cardio follows elevated troponin per cardio - levels flat, nonspecific, no change on ECG medical management with ASA and BB BP management with BB and CCB strict aspiration precautions GT feeding, monitor tolerance O2 HHN prn monitor HH, transfuse prn to keep Hgb above 8 family meeting for further plan and goals of care consider hospice care DNR/DNI status case discussed and evaluated by supervising physician Subjective Allergies: Coded Allergies: No Known Allergies (Unverified , 05/11/17) Subjective leucocytosis resolved, afebrile on VM sat stable Objective Last 24 Hour Vital Signs Date Time Temp Pulse Resp B/P (MAP) Pulse Ox O2 Delivery O2 Flow Rate FiO2 05/14/17 09:00 61 89/59 05/14/17 09:00 61 89/59 05/14/17 08:26 Venturi Mask 10.0 40 05/14/17 08:25 100 Venturi Mask 10.0 40 05/14/17 08:24 88 20 Venturi Mask 10.0 40 05/14/17 08:00 97.0 61 22 89/59 98 Venturi Mask 05/14/17 04:00 98.0 66 20 90/59 100 Venturi Mask 05/13/17 23:44 97.0 73 19 96/65 100 Venturi Mask 9.0 40 05/13/17 21:00 81 97/69 05/13/17 20:00 77 05/13/17 19:58 100 Venturi Mask 12.0 50 05/13/17 19:58 81 18 Venturi Mask 12.0 50 05/13/17 19:58 Nasal Cannula 12.0 50 05/13/17 19:49 97.7 83 19 97/69 100 Venturi Mask 14.0 50 05/13/17 16:32 95 05/13/17 16:00 97.7 95 18 103/73 100 Nasal Cannula 2.0 05/13/17 13:05 83 General Appearance: cachetic, other - bedridden lethargic male HEENT: normocephalic, atraumatic, other - VM on Respiratory/Chest: rhonchi - few scattered Cardiovascular: normal peripheral pulses, normal rate, regular rhythm, no JVD Abdomen: normal bowel sounds, soft, non tender, other - G tube Extremities: other - spastic LE , heel prtoectors on Neurologic/Psychiatric: abnormal gait - bedridden , other - lethargic Musculoskeletal: atrophy - BLE Microbiology Date/Time Source Procedure Growth Status 05/11/17 13:10 Blood Blood Culture - Preliminary NO GROWTH AFTER 48 HOURS Resulted 05/11/17 12:55 Blood Blood Culture - Preliminary NO GROWTH AFTER 48 HOURS Resulted 05/11/17 13:40 Nasal Nares MRSA Culture - Final Staphylococcus Aureus - Mrsa Complete 05/11/17 22:00 Indwelling Cath Urine Culture - Final NO GROWTH AFTER 48 HOURS Complete 05/11/17 13:40 Rectum VRE Culture - Final Enterococcus Faecium - Vre Complete Laboratory Tests 05/14/17 06:10: White Blood Count 8.4#, Red Blood Count 3.28L, Hemoglobin 10.6L, Hematocrit 33.0L, Mean Corpuscular Volume 101H, Mean Corpuscular Hemoglobin 32.2H, Mean Corpuscular Hemoglobin Concent 32.0, Red Cell Distribution Width 11.5L, Platelet Count 225, Mean Platelet Volume 7.6, Neutrophils (%) (Auto) 61.0, Lymphocytes (%) (Auto) 25.7, Monocytes (%) (Auto) 8.4, Eosinophils (%) (Auto) 4.4H, Basophils (%) (Auto) 0.5, Sodium Level 143, Potassium Level 3.8, Chloride Level 106, Carbon Dioxide Level 30, Anion Gap 7, Blood Urea Nitrogen 9, Creatinine 0.7, Estimat Glomerular Filtration Rate > 60, Glucose Level 116H, Calcium Level 8.9, Phosphorus Level 3.4, Magnesium Level 2.1, Total Bilirubin 0.3, Aspartate Amino Transf (AST/SGOT) 17, Alanine Aminotransferase (ALT/SGPT) 17, Alkaline Phosphatase 43, Total Protein 6.1L, Albumin 2.8L, Globulin 3.3, Albumin/Globulin Ratio 0.8L Current Medications Medications (Trade) Dose Ordered Sig/Greta Route PRN Reason Start Time Stop Time Status Last Admin Dose Admin Acetaminophen (Tylenol) 650 mg Q4H PRN ORAL fever 05/14/17 02:45 06/10/17 14:44 Albuterol/ Ipratropium (DuoNeb 0.5-3(2.5)mg/3ml) 3 ml Q4H PRN HHN Shortness of Breath 05/14/17 02:45 05/16/17 14:44 Amlodipine Besylate (Norvasc) 5 mg DAILY GT 05/14/17 09:00 06/11/17 08:59 Aspirin (ASA) 81 mg DAILY NG 05/14/17 09:00 06/11/17 08:59 05/14/17 09:44 Atorvastatin Calcium (Lipitor) 10 mg BEDTIME GT 05/14/17 21:00 06/10/17 20:59 Heparin Sodium (Porcine) (Heparin 5000 units/ml) 5,000 units EVERY 12 HOURS SUBQ 05/14/17 09:00 06/10/17 20:59 05/14/17 09:44 Memantine (Namenda) 10 mg DAILY GT 05/14/17 09:00 06/11/17 08:59 05/14/17 09:44 Metoprolol Tartrate (Lopressor) 12.5 mg Q12HR GT 05/14/17 09:00 06/10/17 20:59 Morphine Sulfate (Morphine Sulfate) 2 mg Q4H PRN IVP Moderate Pain (Pain Scale 4-6) 05/14/17 02:45 05/18/17 14:44 Ondansetron HCl (Zofran) 4 mg Q6H PRN IVP Nausea & Vomiting 05/14/17 02:45 06/10/17 14:44 Phenazopyridine HCl (Pyridium) 100 mg DAILYPRN PRN GT dysuria 05/14/17 17:30 06/10/17 14:44 Piperacillin Sod/ Tazobactam Sod 3.375 gm/Dextrose 110 ml @ 27.5 mls/hr EVERY 8 HOURS IVPB 05/14/17 06:00 05/18/17 16:59 05/14/17 05:00 Polyethylene Glycol (Miralax) 17 gm DAILYPRN PRN GT Constipation 05/14/17 17:30 06/10/17 14:44 Temazepam (Restoril) 15 mg HSPRN PRN GT Insomnia 05/14/17 17:30 05/18/17 14:44 Vancomycin HCl (Vanco rx to dose) 1 ea DAILYPRN PRN MISC RX PROTOCOL 05/14/17 17:15 06/10/17 17:14 Vancomycin HCl/ Dextrose 250 ml @ 166.667 mls/hr Q12HR@1100,2300 IVPB 05/14/17 11:00 05/18/17 10:59 05/14/17 11:45 Ender (Stacey Vieira NP May 14, 2017 11:55
[2017-05-14 12:00] VITALS: BP 95/61
--- NOTE | 2017-05-14 14:04 | General Progress Note ---
Assessment/Plan Problem List: (1) UTI (urinary tract infection) ICD Codes: N39.0 - Urinary tract infection, site not specified SNOMED: 69752979 (2) Fever ICD Codes: R50.9 - Fever, unspecified SNOMED: 736820108 (3) HTN (hypertension) ICD Codes: I10 - Essential (primary) hypertension SNOMED: 49089447 (4) Weak ICD Codes: R53.1 - Weakness SNOMED: 21724339 (5) Altered level of consciousness ICD Codes: R40.4 - Transient alteration of awareness SNOMED: 8513466 (6) Sepsis ICD Codes: A41.9 - Sepsis, unspecified organism SNOMED: 36856010 Status: unchanged Assessment/Plan o2 pulm tx abx cbc bmp am dc plan w hospice Subjective Allergies: Coded Allergies: No Known Allergies (Unverified , 05/11/17) All Systems: reviewed and negative except above Subjective 02 mask altered Objective Last 24 Hour Vital Signs Date Time Temp Pulse Resp B/P (MAP) Pulse Ox O2 Delivery O2 Flow Rate FiO2 05/14/17 12:00 97.3 70 21 95/61 99 Venturi Mask 9.0 05/14/17 09:00 61 89/59 05/14/17 09:00 61 89/59 05/14/17 08:26 Venturi Mask 10.0 40 05/14/17 08:25 100 Venturi Mask 10.0 40 05/14/17 08:24 88 20 Venturi Mask 10.0 40 05/14/17 08:00 97.0 61 22 89/59 98 Venturi Mask 05/14/17 04:00 98.0 66 20 90/59 100 Venturi Mask 05/13/17 23:44 97.0 73 19 96/65 100 Venturi Mask 9.0 40 05/13/17 21:00 81 97/69 05/13/17 20:00 77 05/13/17 19:58 100 Venturi Mask 12.0 50 05/13/17 19:58 81 18 Venturi Mask 12.0 50 05/13/17 19:58 Nasal Cannula 12.0 50 05/13/17 19:49 97.7 83 19 97/69 100 Venturi Mask 14.0 50 05/13/17 16:32 95 05/13/17 16:00 97.7 95 18 103/73 100 Nasal Cannula 2.0 Laboratory Tests 05/14/17 06:10: White Blood Count 8.4#, Red Blood Count 3.28L, Hemoglobin 10.6L, Hematocrit 33.0L, Mean Corpuscular Volume 101H, Mean Corpuscular Hemoglobin 32.2H, Mean Corpuscular Hemoglobin Concent 32.0, Red Cell Distribution Width 11.5L, Platelet Count 225, Mean Platelet Volume 7.6, Neutrophils (%) (Auto) 61.0, Lymphocytes (%) (Auto) 25.7, Monocytes (%) (Auto) 8.4, Eosinophils (%) (Auto) 4.4H, Basophils (%) (Auto) 0.5, Sodium Level 143, Potassium Level 3.8, Chloride Level 106, Carbon Dioxide Level 30, Anion Gap 7, Blood Urea Nitrogen 9, Creatinine 0.7, Estimat Glomerular Filtration Rate > 60, Glucose Level 116H, Calcium Level 8.9, Phosphorus Level 3.4, Magnesium Level 2.1, Total Bilirubin 0.3, Aspartate Amino Transf (AST/SGOT) 17, Alanine Aminotransferase (ALT/SGPT) 17, Alkaline Phosphatase 43, Total Protein 6.1L, Albumin 2.8L, Globulin 3.3, Albumin/Globulin Ratio 0.8L Height (Feet): 5 Height (Inches): 10.00 Weight (Pounds): 112 General Appearance: lethargic EENT: normal ENT inspection Neck: normal alignment Cardiovascular: normal peripheral pulses, normal rate, regular rhythm Respiratory/Chest: chest wall non-tender, lungs clear, normal breath sounds Abdomen: normal bowel sounds, non tender, soft Extremities: normal inspection Edema: no edema noted Arm (L), no edema noted Arm (R), no edema noted Leg (L), no edema noted Leg (R), no edema noted Pedal (L), no edema noted Pedal (R), no edema noted Generalized Neurologic: motor weakness Skin: normal pigmentation, warm/dry ARLENE MANCIA May 14, 2017 14:04
--- NOTE | 2017-05-14 15:44 | Cardiac Electrophysiology PN ---
Assessment/Plan Assessment/Plan 1. Troponin leak 0.8,0.7,0.7 and 0.6. Levels are flat and nonspecific. CPKs are negative and EKG does not show any acute ischemic changes. The patient is nonverbal.Treat medically with aspirin and Lopressor 12.5 mg b.i.d. 2. History of hypertension, on Norvasc 5 mg daily and Lopressor 12.5 mg b.i.d. 3. Sepsis, elevated white count, on vancomycin and cefepime. 4. Dysphagia, status post percutaneous endoscopic gastrostomy placement. 5. Chronic encephalopathy and Alzheimer's. MEETA RN. Subjective Subjective Transferred to Nonmonitored bed. Placement has been an issue.Now off tele. Objective Last 24 Hour Vital Signs Date Time Temp Pulse Resp B/P (MAP) Pulse Ox O2 Delivery O2 Flow Rate FiO2 05/14/17 12:00 97.3 70 21 95/61 99 Venturi Mask 9.0 05/14/17 09:00 61 89/59 05/14/17 09:00 61 89/59 05/14/17 08:26 Venturi Mask 10.0 40 05/14/17 08:25 100 Venturi Mask 10.0 40 05/14/17 08:24 88 20 Venturi Mask 10.0 40 05/14/17 08:00 97.0 61 22 89/59 98 Venturi Mask 05/14/17 04:00 98.0 66 20 90/59 100 Venturi Mask 05/13/17 23:44 97.0 73 19 96/65 100 Venturi Mask 9.0 40 05/13/17 21:00 81 97/69 05/13/17 20:00 77 05/13/17 19:58 100 Venturi Mask 12.0 50 05/13/17 19:58 81 18 Venturi Mask 12.0 50 05/13/17 19:58 Nasal Cannula 12.0 50 05/13/17 19:49 97.7 83 19 97/69 100 Venturi Mask 14.0 50 05/13/17 16:32 95 05/13/17 16:00 97.7 95 18 103/73 100 Nasal Cannula 2.0 Laboratory Tests Test 05/14/17 06:10 White Blood Count 8.4 K/UL (4.8-10.8) # Red Blood Count 3.28 M/UL (4.70-6.10) L Hemoglobin 10.6 G/DL (14.2-18.0) L Hematocrit 33.0 % (42.0-52.0) L Mean Corpuscular Volume 101 FL (80-99) H Mean Corpuscular Hemoglobin 32.2 PG (27.0-31.0) H Mean Corpuscular Hemoglobin Concent 32.0 G/DL (32.0-36.0) Red Cell Distribution Width 11.5 % (11.6-14.8) L Platelet Count 225 K/UL (150-450) Mean Platelet Volume 7.6 FL (6.5-10.1) Neutrophils (%) (Auto) 61.0 % (45.0-75.0) Lymphocytes (%) (Auto) 25.7 % (20.0-45.0) Monocytes (%) (Auto) 8.4 % (1.0-10.0) Eosinophils (%) (Auto) 4.4 % (0.0-3.0) H Basophils (%) (Auto) 0.5 % (0.0-2.0) Sodium Level 143 mEQ/L (135-145) Potassium Level 3.8 mEQ/L (3.4-4.9) Chloride Level 106 mEQ/L (98-107) Carbon Dioxide Level 30 mEQ/L (20-30) Anion Gap 7 (5-15) Blood Urea Nitrogen 9 mg/dL (7-23) Creatinine 0.7 mg/dL (0.7-1.2) Estimat Glomerular Filtration Rate > 60 mL/min (>60) Glucose Level 116 mg/dL (74-106) H Calcium Level 8.9 mg/dL (8.6-10.2) Phosphorus Level 3.4 mg/dL (2.5-4.8) Magnesium Level 2.1 mg/dL (1.7-2.5) Total Bilirubin 0.3 mg/dL (0.0-1.2) Aspartate Amino Transf (AST/SGOT) 17 U/L (5-40) Alanine Aminotransferase (ALT/SGPT) 17 U/L (3-41) Alkaline Phosphatase 43 U/L (40-129) Total Protein 6.1 g/dL (6.6-8.7) L Albumin 2.8 g/dL (3.5-5.2) L Globulin 3.3 g/dL Albumin/Globulin Ratio 0.8 (1.0-2.7) L Microbiology Date/Time Source Procedure Growth Status 05/11/17 22:00 Indwelling Cath Urine Culture - Final NO GROWTH AFTER 48 HOURS Complete Objective NECK: Shows no JVD.Mouth breather. LUNGS: Coarse rhonchi. CARDIOVASCULAR: Regular S1 and S2 with no gallop or murmur. ABDOMEN: Status post G-tube. EXTREMITIES: No pitting edema. TYSON NOVOA May 14, 2017 15:44
[2017-05-14 16:00] VITALS: BP 111/75
[2017-05-14] MEDS ORDERED: Miralax 17gm pkt GT PRN (17:30)
--- NOTE | 2017-05-14 19:12 | Infectious Diseases Prog Note ---
Assessment/Plan Problems: (1) Sepsis Assessment & Plan: improving on vancomycin and zosyn , CXR, no new infiltrates (2) Pneumonia Assessment & Plan: on vancomycin and zosyn, monitor CXR (3) NSTEMI (non-ST elevated myocardial infarction) Assessment & Plan: recommend cardiology consult for evaluation Subjective ROS Limited/Unobtainable: Yes Allergies: Coded Allergies: No Known Allergies (Unverified , 05/11/17) Subjective he was lying in bed, unresponsive, on high flow oxygen via mask Objective Vital Signs Last 24 Hour Vital Signs Date Time Temp Pulse Resp B/P (MAP) Pulse Ox O2 Delivery O2 Flow Rate FiO2 05/14/17 16:00 97.7 57 21 111/75 100 Venturi Mask 9.0 05/14/17 12:00 97.3 70 21 95/61 99 Venturi Mask 9.0 05/14/17 09:00 61 89/59 05/14/17 09:00 61 89/59 05/14/17 08:26 Venturi Mask 10.0 40 05/14/17 08:25 100 Venturi Mask 10.0 40 05/14/17 08:24 88 20 Venturi Mask 10.0 40 05/14/17 08:00 97.0 61 22 89/59 98 Venturi Mask 05/14/17 04:00 98.0 66 20 90/59 100 Venturi Mask 05/13/17 23:44 97.0 73 19 96/65 100 Venturi Mask 9.0 40 05/13/17 21:00 81 97/69 05/13/17 20:00 77 05/13/17 19:58 100 Venturi Mask 12.0 50 05/13/17 19:58 81 18 Venturi Mask 12.0 50 05/13/17 19:58 Nasal Cannula 12.0 50 05/13/17 19:49 97.7 83 19 97/69 100 Venturi Mask 14.0 50 Height (Feet): 5 Height (Inches): 10.00 Weight (Pounds): 112 General Appearance: WD/WN, cachetic HEENT: normocephalic, atraumatic, anicteric, mucous membranes moist Respiratory/Chest: chest wall non-tender, lungs clear, normal breath sounds, no respiratory distress, no accessory muscle use Cardiovascular: normal peripheral pulses, normal rate, regular rhythm, no gallop/murmur, no JVD Abdomen: normal bowel sounds, soft, non tender, no organomegaly, non distended , no mass, no scars Extremities: no cyanosis, no clubbing Skin: no rash, no lesions, no ulcers Microbiology Date/Time Source Procedure Growth Status 05/11/17 22:00 Indwelling Cath Urine Culture - Final NO GROWTH AFTER 48 HOURS Complete Laboratory Tests Test 05/14/17 06:10 White Blood Count 8.4 K/UL (4.8-10.8) # Red Blood Count 3.28 M/UL (4.70-6.10) L Hemoglobin 10.6 G/DL (14.2-18.0) L Hematocrit 33.0 % (42.0-52.0) L Mean Corpuscular Volume 101 FL (80-99) H Mean Corpuscular Hemoglobin 32.2 PG (27.0-31.0) H Mean Corpuscular Hemoglobin Concent 32.0 G/DL (32.0-36.0) Red Cell Distribution Width 11.5 % (11.6-14.8) L Platelet Count 225 K/UL (150-450) Mean Platelet Volume 7.6 FL (6.5-10.1) Neutrophils (%) (Auto) 61.0 % (45.0-75.0) Lymphocytes (%) (Auto) 25.7 % (20.0-45.0) Monocytes (%) (Auto) 8.4 % (1.0-10.0) Eosinophils (%) (Auto) 4.4 % (0.0-3.0) H Basophils (%) (Auto) 0.5 % (0.0-2.0) Sodium Level 143 mEQ/L (135-145) Potassium Level 3.8 mEQ/L (3.4-4.9) Chloride Level 106 mEQ/L (98-107) Carbon Dioxide Level 30 mEQ/L (20-30) Anion Gap 7 (5-15) Blood Urea Nitrogen 9 mg/dL (7-23) Creatinine 0.7 mg/dL (0.7-1.2) Estimat Glomerular Filtration Rate > 60 mL/min (>60) Glucose Level 116 mg/dL (74-106) H Calcium Level 8.9 mg/dL (8.6-10.2) Phosphorus Level 3.4 mg/dL (2.5-4.8) Magnesium Level 2.1 mg/dL (1.7-2.5) Total Bilirubin 0.3 mg/dL (0.0-1.2) Aspartate Amino Transf (AST/SGOT) 17 U/L (5-40) Alanine Aminotransferase (ALT/SGPT) 17 U/L (3-41) Alkaline Phosphatase 43 U/L (40-129) Total Protein 6.1 g/dL (6.6-8.7) L Albumin 2.8 g/dL (3.5-5.2) L Globulin 3.3 g/dL Albumin/Globulin Ratio 0.8 (1.0-2.7) L Current Medications Medications (Trade) Dose Ordered Sig/Greta Route PRN Reason Start Time Stop Time Status Last Admin Dose Admin Acetaminophen (Tylenol) 650 mg Q4H PRN ORAL fever 05/14/17 02:45 06/10/17 14:44 Albuterol/ Ipratropium (DuoNeb 0.5-3(2.5)mg/3ml) 3 ml Q4H PRN HHN Shortness of Breath 05/14/17 02:45 05/16/17 14:44 Amlodipine Besylate (Norvasc) 5 mg DAILY GT 05/14/17 09:00 06/11/17 08:59 Aspirin (ASA) 81 mg DAILY NG 05/14/17 09:00 06/11/17 08:59 05/14/17 09:44 Atorvastatin Calcium (Lipitor) 10 mg BEDTIME GT 05/14/17 21:00 06/10/17 20:59 Heparin Sodium (Porcine) (Heparin 5000 units/ml) 5,000 units EVERY 12 HOURS SUBQ 05/14/17 09:00 06/10/17 20:59 05/14/17 09:44 Memantine (Namenda) 10 mg DAILY GT 05/14/17 09:00 06/11/17 08:59 05/14/17 09:44 Metoprolol Tartrate (Lopressor) 12.5 mg Q12HR GT 05/14/17 09:00 06/10/17 20:59 Morphine Sulfate (Morphine Sulfate) 2 mg Q4H PRN IVP Moderate Pain (Pain Scale 4-6) 05/14/17 02:45 05/18/17 14:44 Ondansetron HCl (Zofran) 4 mg Q6H PRN IVP Nausea & Vomiting 05/14/17 02:45 06/10/17 14:44 Phenazopyridine HCl (Pyridium) 100 mg DAILYPRN PRN GT dysuria 05/14/17 17:30 06/10/17 14:44 Piperacillin Sod/ Tazobactam Sod 3.375 gm/Dextrose 110 ml @ 27.5 mls/hr EVERY 8 HOURS IVPB 05/14/17 06:00 05/18/17 16:59 05/14/17 14:32 Polyethylene Glycol (Miralax) 17 gm DAILYPRN PRN GT Constipation 05/14/17 17:30 06/10/17 14:44 Temazepam (Restoril) 15 mg HSPRN PRN GT Insomnia 05/14/17 17:30 05/18/17 14:44 Vancomycin HCl (Vanco rx to dose) 1 ea DAILYPRN PRN MISC RX PROTOCOL 05/14/17 17:15 06/10/17 17:14 Vancomycin HCl/ Dextrose 250 ml @ 166.667 mls/hr Q12HR@1100,2300 IVPB 05/14/17 11:00 05/18/17 10:59 05/14/17 11:45 Tavo Chopra M.D. May 14, 2017 19:12
[2017-05-14 21:00] VITALS: BP 107/73
[2017-05-15 00:08] VITALS: BP 101/63
[2017-05-15] MEDS: Vancomycin 1.5 GM/D5W 250ML IVPB SCH ×2 (01:02→14:33)
[2017-05-15 04:00] VITALS: BP 97/67
[2017-05-15] MEDS: Piperacillin/Tazobactam 3.375 GM in D5W 110 ML IVPB SCH ×3 (05:02→23:35)
--- NOTE | 2017-05-15 07:29 | Pulmonology Progress Note ---
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 PLAN OF CARE MS floor abx ID follows urine cx negative blood culture preliminary negative sputum cx if able CXR negative ECHO with EF 55% and RVSP of 30 cardio follows elevated troponin per cardio - levels flat, nonspecific, no change on ECG medical management with ASA and BB BP management with BB and CCB strict aspiration precautions GT feeding, monitor tolerance O2 HHN prn monitor HH, transfuse prn to keep Hgb above 8 family meeting for further plan and goals of care consider hospice care DNR/DNI status case discussed and evaluated by supervising physician Subjective Allergies: Coded Allergies: No Known Allergies (Unverified , 05/11/17) Subjective leucocytosis resolved, afebrile on VM sat stable Objective Last 24 Hour Vital Signs Date Time Temp Pulse Resp B/P (MAP) Pulse Ox O2 Delivery O2 Flow Rate FiO2 05/15/17 04:00 97.7 71 20 97/67 99 Room Air 05/15/17 00:08 97.3 70 21 101/63 96 Simple Mask 05/14/17 21:00 66 107/73 05/14/17 21:00 97.3 66 19 107/73 96 Simple Mask 05/14/17 19:05 Venturi Mask 10.0 40 05/14/17 19:05 100 Venturi Mask 10.0 40 05/14/17 19:05 85 20 Venturi Mask 10.0 40 05/14/17 16:00 97.7 57 21 111/75 100 Venturi Mask 9.0 05/14/17 12:00 97.3 70 21 95/61 99 Venturi Mask 9.0 05/14/17 09:00 61 89/59 05/14/17 09:00 61 89/59 05/14/17 08:26 Venturi Mask 10.0 40 05/14/17 08:25 100 Venturi Mask 10.0 40 05/14/17 08:24 88 20 Venturi Mask 10.0 40 05/14/17 08:00 97.0 61 22 89/59 98 Venturi Mask Objective General Appearance: cachetic, bedridden lethargic male HEENT: normocephalic, atraumatic, VM on with FiO2 40% Respiratory/Chest: rhonchi - few scattered Cardiovascular: normal peripheral pulses, normal rate, regular rhythm, no JVD Abdomen: normal bowel sounds, soft, non tender, G tube Extremities: spastic LE , heel protectors on Neurologic/Psychiatric: bedridden , lethargic Musculoskeletal: atrophy - BLE Laboratory Tests 05/14/17 23:20: Vancomycin Level Trough 14.2H Current Medications Medications (Trade) Dose Ordered Sig/Greta Route PRN Reason Start Time Stop Time Status Last Admin Dose Admin Acetaminophen (Tylenol) 650 mg Q4H PRN ORAL fever 05/14/17 02:45 06/10/17 14:44 Albuterol/ Ipratropium (DuoNeb 0.5-3(2.5)mg/3ml) 3 ml Q4H PRN HHN Shortness of Breath 05/14/17 02:45 05/16/17 14:44 Amlodipine Besylate (Norvasc) 5 mg DAILY GT 05/14/17 09:00 06/11/17 08:59 Aspirin (ASA) 81 mg DAILY NG 05/14/17 09:00 06/11/17 08:59 05/14/17 09:44 Atorvastatin Calcium (Lipitor) 10 mg BEDTIME GT 05/14/17 21:00 06/10/17 20:59 05/14/17 21:48 Heparin Sodium (Porcine) (Heparin 5000 units/ml) 5,000 units EVERY 12 HOURS SUBQ 05/14/17 09:00 06/10/17 20:59 05/14/17 21:49 Memantine (Namenda) 10 mg DAILY GT 05/14/17 09:00 06/11/17 08:59 05/14/17 09:44 Metoprolol Tartrate (Lopressor) 12.5 mg Q12HR GT 05/14/17 09:00 06/10/17 20:59 Morphine Sulfate (Morphine Sulfate) 2 mg Q4H PRN IVP Moderate Pain (Pain Scale 4-6) 05/14/17 02:45 05/18/17 14:44 Mupirocin (Bactroban Oint) 1 applic THREE TIMES A DAY TOPIC 05/14/17 20:30 05/19/17 20:29 05/14/17 21:47 Ondansetron HCl (Zofran) 4 mg Q6H PRN IVP Nausea & Vomiting 05/14/17 02:45 06/10/17 14:44 Phenazopyridine HCl (Pyridium) 100 mg DAILYPRN PRN GT dysuria 05/14/17 17:30 06/10/17 14:44 Piperacillin Sod/ Tazobactam Sod 3.375 gm/Dextrose 110 ml @ 27.5 mls/hr EVERY 8 HOURS IVPB 05/14/17 06:00 05/18/17 16:59 05/15/17 05:02 Polyethylene Glycol (Miralax) 17 gm DAILYPRN PRN GT Constipation 05/14/17 17:30 06/10/17 14:44 Temazepam (Restoril) 15 mg HSPRN PRN GT Insomnia 05/14/17 17:30 05/18/17 14:44 Vancomycin HCl (Vanco rx to dose) 1 ea DAILYPRN PRN MISC RX PROTOCOL 05/14/17 17:15 06/10/17 17:14 Vancomycin HCl/ Dextrose 250 ml @ 125 mls/hr Q12H IVPB 05/15/17 01:00 05/20/17 00:59 05/15/17 01:02 Ender CrespoStacey heath NP May 15, 2017 07:29
[2017-05-15 08:00] VITALS: BP 118/70
--- NOTE | 2017-05-15 09:06 | General Progress Note ---
Assessment/Plan Problem List: (1) UTI (urinary tract infection) ICD Codes: N39.0 - Urinary tract infection, site not specified SNOMED: 23102688 (2) Fever ICD Codes: R50.9 - Fever, unspecified SNOMED: 466053180 (3) HTN (hypertension) ICD Codes: I10 - Essential (primary) hypertension SNOMED: 35502056 (4) Weak ICD Codes: R53.1 - Weakness SNOMED: 56772756 (5) Altered level of consciousness ICD Codes: R40.4 - Transient alteration of awareness SNOMED: 5820406 (6) Sepsis ICD Codes: A41.9 - Sepsis, unspecified organism SNOMED: 15928872 Status: unchanged Assessment/Plan o2 pulm tx abx cbc bmp am dc plan w hospice Subjective Constitutional: Reports: weakness Allergies: Coded Allergies: No Known Allergies (Unverified , 05/11/17) All Systems: reviewed and negative except above Subjective 02 mask altered Objective Last 24 Hour Vital Signs Date Time Temp Pulse Resp B/P (MAP) Pulse Ox O2 Delivery O2 Flow Rate FiO2 05/15/17 04:00 97.7 71 20 97/67 99 Room Air 05/15/17 00:08 97.3 70 21 101/63 96 Simple Mask 05/14/17 21:00 66 107/73 05/14/17 21:00 97.3 66 19 107/73 96 Simple Mask 05/14/17 19:05 Venturi Mask 10.0 40 05/14/17 19:05 100 Venturi Mask 10.0 40 05/14/17 19:05 85 20 Venturi Mask 10.0 40 05/14/17 16:00 97.7 57 21 111/75 100 Venturi Mask 9.0 05/14/17 12:00 97.3 70 21 95/61 99 Venturi Mask 9.0 Laboratory Tests 05/14/17 23:20: Vancomycin Level Trough 14.2H Height (Feet): 5 Height (Inches): 10.00 Weight (Pounds): 112 General Appearance: lethargic EENT: normal ENT inspection Neck: normal alignment Cardiovascular: normal peripheral pulses, normal rate, regular rhythm Respiratory/Chest: chest wall non-tender, lungs clear, normal breath sounds Abdomen: normal bowel sounds, non tender, soft Extremities: normal inspection Edema: no edema noted Arm (L), no edema noted Arm (R), no edema noted Leg (L), no edema noted Leg (R), no edema noted Pedal (L), no edema noted Pedal (R), no edema noted Generalized Neurologic: motor weakness Skin: normal pigmentation, warm/dry ARLENE MANCIA May 15, 2017 09:06
[2017-05-15] MEDS: Memantine 10mg tab GT SCH (09:45)
[2017-05-15] MEDS: Metoprolol Tartrate 12.5mg TAB GT SCH ×2 (09:45→21:00)
[2017-05-15] MEDS: Aspirin Baby 81mg NG SCH (09:46)
[2017-05-15] MEDS: Heparin 5000 units/ml inj SUBQ SCH ×2 (09:51→21:23)
[2017-05-15 11:29] LABS: BASOPHILS % (AUTO) 0.5 % (0.0-2.0); EOSINOPHILS % (AUTO) 2.9 % (0.0-3.0); MEAN CORPUSCULAR HEMOGLOBIN 34.2 PG (27.0-31.0); MEAN CORPUSCULAR VOLUME 101 FL (80-99); MEAN PLATELET VOLUME 7.3 FL (6.5-10.1); MONOCYTES % (AUTO) 9.1 % (1.0-10.0); NEUTROPHILS % (AUTO) 72.5 % (45.0-75.0); PLATELET COUNT 247 K/UL (150-450); RED BLOOD COUNT 3.75 M/UL (4.70-6.10); RED CELL DISTRIBUTION WIDTH 11.4 % (11.6-14.8); WHITE BLOOD COUNT 9.7 K/UL (4.8-10.8)
[2017-05-15 11:49] LABS: ANION GAP 12 (5-15); CALCIUM 9.7 mg/dL (8.6-10.2); CARBON DIOXIDE 29 mEQ/L (20-30); CHLORIDE 105 mEQ/L (98-107); GLOMERULAR FILTRATION RATE > 60 mL/min (>60); HEMOLYSIS 2; POTASSIUM 4.4 mEQ/L (3.4-4.9); SODIUM 146 mEQ/L (135-145)
[2017-05-15 12:00] VITALS: BP 114/76
[2017-05-15 16:00] VITALS: BP 116/73
--- NOTE | 2017-05-15 16:59 | Infectious Diseases Prog Note ---
Assessment/Plan Problems: (1) Sepsis Assessment & Plan: improving on vancomycin and zosyn , CXR, no new infiltrates (2) Pneumonia Assessment & Plan: on vancomycin and zosyn, monitor CXR (3) NSTEMI (non-ST elevated myocardial infarction) Assessment & Plan: cardiology is following Subjective ROS Limited/Unobtainable: Yes Allergies: Coded Allergies: No Known Allergies (Unverified , 05/11/17) Subjective he was lying in bed, unresponsive, on high flow oxygen via mask Objective Vital Signs Last 24 Hour Vital Signs Date Time Temp Pulse Resp B/P (MAP) Pulse Ox O2 Delivery O2 Flow Rate FiO2 05/15/17 16:00 97.6 89 20 116/73 97 Venturi Mask 7.0 35 05/15/17 12:00 96.4 64 20 114/76 96 Venturi Mask 7.0 35 05/15/17 09:45 76 118/70 05/15/17 09:45 76 118/70 05/15/17 09:13 98 Venturi Mask 10.0 40 05/15/17 09:13 Venturi Mask 10.0 40 05/15/17 09:13 76 18 Venturi Mask 10.0 40 05/15/17 08:00 97.0 66 20 118/70 97 Venturi Mask 7.0 35 05/15/17 04:00 97.7 71 20 97/67 99 Room Air 05/15/17 00:08 97.3 70 21 101/63 96 Simple Mask 05/14/17 21:00 66 107/73 05/14/17 21:00 97.3 66 19 107/73 96 Simple Mask 05/14/17 19:05 Venturi Mask 10.0 40 05/14/17 19:05 100 Venturi Mask 10.0 40 05/14/17 19:05 85 20 Venturi Mask 10.0 40 Height (Feet): 5 Height (Inches): 10.00 Weight (Pounds): 112 General Appearance: WD/WN, cachetic HEENT: normocephalic, atraumatic Respiratory/Chest: chest wall non-tender, lungs clear, normal breath sounds Cardiovascular: normal peripheral pulses, normal rate, regular rhythm, no gallop/murmur Abdomen: normal bowel sounds, soft, non tender, no organomegaly, no mass Extremities: no cyanosis, no clubbing Skin: no rash, no lesions Laboratory Tests Test 05/14/17 23:20 05/15/17 09:45 Vancomycin Level Trough 14.2 ug/mL (5.0-12.0) H White Blood Count 9.7 K/UL (4.8-10.8) Red Blood Count 3.75 M/UL (4.70-6.10) L Hemoglobin 12.8 G/DL (14.2-18.0) L Hematocrit 37.7 % (42.0-52.0) L Mean Corpuscular Volume 101 FL (80-99) H Mean Corpuscular Hemoglobin 34.2 PG (27.0-31.0) H Mean Corpuscular Hemoglobin Concent 34.0 G/DL (32.0-36.0) Red Cell Distribution Width 11.4 % (11.6-14.8) L Platelet Count 247 K/UL (150-450) Mean Platelet Volume 7.3 FL (6.5-10.1) Neutrophils (%) (Auto) 72.5 % (45.0-75.0) Lymphocytes (%) (Auto) 15.0 % (20.0-45.0) L Monocytes (%) (Auto) 9.1 % (1.0-10.0) Eosinophils (%) (Auto) 2.9 % (0.0-3.0) Basophils (%) (Auto) 0.5 % (0.0-2.0) Sodium Level 146 mEQ/L (135-145) H Potassium Level 4.4 mEQ/L (3.4-4.9) Chloride Level 105 mEQ/L (98-107) Carbon Dioxide Level 29 mEQ/L (20-30) Anion Gap 12 (5-15) Blood Urea Nitrogen 12 mg/dL (7-23) Creatinine 1.0 mg/dL (0.7-1.2) Estimat Glomerular Filtration Rate > 60 mL/min (>60) Glucose Level 110 mg/dL (74-106) H Calcium Level 9.7 mg/dL (8.6-10.2) Current Medications Medications (Trade) Dose Ordered Sig/Greta Route PRN Reason Start Time Stop Time Status Last Admin Dose Admin Acetaminophen (Tylenol) 650 mg Q4H PRN ORAL fever 05/14/17 02:45 06/10/17 14:44 Albuterol/ Ipratropium (DuoNeb 0.5-3(2.5)mg/3ml) 3 ml Q4H PRN HHN Shortness of Breath 05/14/17 02:45 05/16/17 14:44 Amlodipine Besylate (Norvasc) 5 mg DAILY GT 05/14/17 09:00 06/11/17 08:59 05/15/17 09:45 Aspirin (ASA) 81 mg DAILY NG 05/14/17 09:00 06/11/17 08:59 05/15/17 09:46 Atorvastatin Calcium (Lipitor) 10 mg BEDTIME GT 05/14/17 21:00 06/10/17 20:59 05/14/17 21:48 Heparin Sodium (Porcine) (Heparin 5000 units/ml) 5,000 units EVERY 12 HOURS SUBQ 05/14/17 09:00 06/10/17 20:59 05/15/17 09:51 Memantine (Namenda) 10 mg DAILY GT 05/14/17 09:00 06/11/17 08:59 05/15/17 09:45 Metoprolol Tartrate (Lopressor) 12.5 mg Q12HR GT 05/14/17 09:00 06/10/17 20:59 05/15/17 09:45 Morphine Sulfate (Morphine Sulfate) 2 mg Q4H PRN IVP Moderate Pain (Pain Scale 4-6) 05/14/17 02:45 05/18/17 14:44 Mupirocin (Bactroban Oint) 1 applic THREE TIMES A DAY TOPIC 05/14/17 20:30 05/19/17 20:29 05/15/17 14:31 Ondansetron HCl (Zofran) 4 mg Q6H PRN IVP Nausea & Vomiting 05/14/17 02:45 06/10/17 14:44 Phenazopyridine HCl (Pyridium) 100 mg DAILYPRN PRN GT dysuria 05/14/17 17:30 06/10/17 14:44 Piperacillin Sod/ Tazobactam Sod 3.375 gm/Dextrose 110 ml @ 27.5 mls/hr EVERY 8 HOURS IVPB 05/14/17 06:00 05/18/17 16:59 05/15/17 05:02 Polyethylene Glycol (Miralax) 17 gm DAILYPRN PRN GT Constipation 05/14/17 17:30 06/10/17 14:44 Temazepam (Restoril) 15 mg HSPRN PRN GT Insomnia 05/14/17 17:30 05/18/17 14:44 Vancomycin HCl (Vanco rx to dose) 1 ea DAILYPRN PRN MISC RX PROTOCOL 05/14/17 17:15 06/10/17 17:14 Vancomycin HCl/ Dextrose 250 ml @ 166.667 mls/hr Q12HR@0100,1300 IVPB 05/16/17 01:00 05/18/17 00:59 Tavo Chopra M.D. May 15, 2017 16:59
--- NOTE | 2017-05-15 17:53 | Cardiac Electrophysiology PN ---
Assessment/Plan Assessment/Plan 1. Troponin leak 0.8,0.7,0.7 and 0.6. Levels are flat and nonspecific. CPKs are negative and EKG does not show any acute ischemic changes. The patient is nonverbal.Treat medically with aspirin and Lopressor 12.5 mg b.i.d. 2. Hypertension, on Norvasc 5 mg daily and Lopressor 12.5 mg b.i.d. 3. Sepsis, elevated white count, on vancomycin and cefepime. 4. Dysphagia, status post percutaneous endoscopic gastrostomy placement. 5. Chronic encephalopathy and Alzheimer's. MEETA RN. Subjective Subjective Non verbal on Nonmonitored bed. No events overnight. Objective Last 24 Hour Vital Signs Date Time Temp Pulse Resp B/P (MAP) Pulse Ox O2 Delivery O2 Flow Rate FiO2 05/15/17 16:00 97.6 89 20 116/73 97 Venturi Mask 7.0 35 05/15/17 12:00 96.4 64 20 114/76 96 Venturi Mask 7.0 35 05/15/17 09:45 76 118/70 05/15/17 09:45 76 118/70 05/15/17 09:13 98 Venturi Mask 10.0 40 05/15/17 09:13 Venturi Mask 10.0 40 05/15/17 09:13 76 18 Venturi Mask 10.0 40 05/15/17 08:00 97.0 66 20 118/70 97 Venturi Mask 7.0 35 05/15/17 04:00 97.7 71 20 97/67 99 Room Air 05/15/17 00:08 97.3 70 21 101/63 96 Simple Mask 05/14/17 21:00 66 107/73 05/14/17 21:00 97.3 66 19 107/73 96 Simple Mask 05/14/17 19:05 Venturi Mask 10.0 40 05/14/17 19:05 100 Venturi Mask 10.0 40 05/14/17 19:05 85 20 Venturi Mask 10.0 40 Laboratory Tests Test 05/14/17 23:20 05/15/17 09:45 Vancomycin Level Trough 14.2 ug/mL (5.0-12.0) H White Blood Count 9.7 K/UL (4.8-10.8) Red Blood Count 3.75 M/UL (4.70-6.10) L Hemoglobin 12.8 G/DL (14.2-18.0) L Hematocrit 37.7 % (42.0-52.0) L Mean Corpuscular Volume 101 FL (80-99) H Mean Corpuscular Hemoglobin 34.2 PG (27.0-31.0) H Mean Corpuscular Hemoglobin Concent 34.0 G/DL (32.0-36.0) Red Cell Distribution Width 11.4 % (11.6-14.8) L Platelet Count 247 K/UL (150-450) Mean Platelet Volume 7.3 FL (6.5-10.1) Neutrophils (%) (Auto) 72.5 % (45.0-75.0) Lymphocytes (%) (Auto) 15.0 % (20.0-45.0) L Monocytes (%) (Auto) 9.1 % (1.0-10.0) Eosinophils (%) (Auto) 2.9 % (0.0-3.0) Basophils (%) (Auto) 0.5 % (0.0-2.0) Sodium Level 146 mEQ/L (135-145) H Potassium Level 4.4 mEQ/L (3.4-4.9) Chloride Level 105 mEQ/L (98-107) Carbon Dioxide Level 29 mEQ/L (20-30) Anion Gap 12 (5-15) Blood Urea Nitrogen 12 mg/dL (7-23) Creatinine 1.0 mg/dL (0.7-1.2) Estimat Glomerular Filtration Rate > 60 mL/min (>60) Glucose Level 110 mg/dL (74-106) H Calcium Level 9.7 mg/dL (8.6-10.2) Objective NECK: Nno JVD.Mouth breather. Face Mask on. LUNGS: Coarse rhonchi. CARDIOVASCULAR: Regular S1 and S2 with no gallop or murmur. ABDOMEN: Status post G-tube. EXTREMITIES: No pitting edema. TYSON NOVOA May 15, 2017 17:53
[2017-05-15 20:00] VITALS: BP 97/68
[2017-05-16] VITALS (7 sets, daily range): BP systolic 93–108; BP diastolic 50–69
[2017-05-16] MEDS: Vancomycin 1250mg/D5W 250ml 250 ML IVPB SCH ×2 (04:02→12:29)
[2017-05-16] MEDS: Piperacillin/Tazobactam 3.375 GM in D5W 110 ML IVPB SCH ×3 (06:02→20:50)
[2017-05-16 07:01] LABS: BASOPHILS % (AUTO) 0.5 % (0.0-2.0); LYMPHOCYTES % (AUTO) 16.2 % (20.0-45.0); MEAN CORPUSCULAR HEMOGLOBIN 33.1 PG (27.0-31.0); MEAN CORPUSCULAR HGB CONC 33.1 G/DL (32.0-36.0); MEAN CORPUSCULAR VOLUME 100 FL (80-99); MEAN PLATELET VOLUME 7.5 FL (6.5-10.1); MONOCYTES % (AUTO) 7.9 % (1.0-10.0); NEUTROPHILS % (AUTO) 72.4 % (45.0-75.0); PLATELET COUNT 211 K/UL (150-450); RED BLOOD COUNT 3.13 M/UL (4.70-6.10); RED CELL DISTRIBUTION WIDTH 11.8 % (11.6-14.8); WHITE BLOOD COUNT 13.4 K/UL (4.8-10.8)
[2017-05-16 07:17] LABS: ANION GAP 8 (5-15); CALCIUM 9.2 mg/dL (8.6-10.2); CARBON DIOXIDE 30 mEQ/L (20-30); CHLORIDE 104 mEQ/L (98-107); CREATININE 1.3 mg/dL (0.7-1.2); GLOMERULAR FILTRATION RATE > 60 mL/min (>60); HEMOLYSIS 0; POTASSIUM 3.7 mEQ/L (3.4-4.9); SODIUM 142 mEQ/L (135-145)
--- NOTE | 2017-05-16 08:10 | General Progress Note ---
Assessment/Plan Problem List: (1) UTI (urinary tract infection) ICD Codes: N39.0 - Urinary tract infection, site not specified SNOMED: 74341021 (2) Fever ICD Codes: R50.9 - Fever, unspecified SNOMED: 165495389 (3) HTN (hypertension) ICD Codes: I10 - Essential (primary) hypertension SNOMED: 11820671 (4) Weak ICD Codes: R53.1 - Weakness SNOMED: 56009215 (5) Altered level of consciousness ICD Codes: R40.4 - Transient alteration of awareness SNOMED: 9295546 (6) Sepsis ICD Codes: A41.9 - Sepsis, unspecified organism SNOMED: 85775512 Status: unchanged Assessment/Plan o2 pulm tx abx cbc bmp am dc plan w hospice Subjective Constitutional: Reports: weakness Allergies: Coded Allergies: No Known Allergies (Unverified , 05/11/17) All Systems: reviewed and negative except above Subjective 02 mask altered Objective Last 24 Hour Vital Signs Date Time Temp Pulse Resp B/P (MAP) Pulse Ox O2 Delivery O2 Flow Rate FiO2 05/16/17 04:00 97.2 74 14 103/61 95 Venturi Mask 8.0 40 05/16/17 00:00 97.0 71 14 105/56 98 Venturi Mask 8.0 40 05/15/17 21:00 70 97/68 05/15/17 20:05 70 18 98 Venturi Mask 8.0 40 05/15/17 20:00 97.0 65 18 97/68 95 Venturi Mask 8.0 40 05/15/17 19:56 68 18 Venturi Mask 8.0 40 05/15/17 19:56 68 18 95 Venturi Mask 8.0 40 05/15/17 19:56 95 Venturi Mask 8.0 40 05/15/17 19:56 Venturi Mask 8.0 40 05/15/17 16:00 97.6 89 20 116/73 97 Venturi Mask 7.0 35 05/15/17 12:00 96.4 64 20 114/76 96 Venturi Mask 7.0 35 05/15/17 09:45 76 118/70 05/15/17 09:45 76 118/70 05/15/17 09:13 98 Venturi Mask 10.0 40 05/15/17 09:13 Venturi Mask 10.0 40 05/15/17 09:13 76 18 Venturi Mask 10.0 40 Laboratory Tests 05/15/17 09:45: White Blood Count 9.7, Red Blood Count 3.75L, Hemoglobin 12.8L, Hematocrit 37.7L , Mean Corpuscular Volume 101H, Mean Corpuscular Hemoglobin 34.2H, Mean Corpuscular Hemoglobin Concent 34.0, Red Cell Distribution Width 11.4L, Platelet Count 247, Mean Platelet Volume 7.3, Neutrophils (%) (Auto) 72.5, Lymphocytes (%) (Auto) 15.0L, Monocytes (%) (Auto) 9.1, Eosinophils (%) (Auto) 2.9, Basophils (%) (Auto) 0.5, Sodium Level 146H, Potassium Level 4.4, Chloride Level 105, Carbon Dioxide Level 29, Anion Gap 12, Blood Urea Nitrogen 12, Creatinine 1.0, Estimat Glomerular Filtration Rate > 60, Glucose Level 110H, Calcium Level 9.7 05/16/17 05:25: White Blood Count 13.4H, Red Blood Count 3.13L, Hemoglobin 10.4L, Hematocrit 31.3L, Mean Corpuscular Volume 100H, Mean Corpuscular Hemoglobin 33.1H, Mean Corpuscular Hemoglobin Concent 33.1, Red Cell Distribution Width 11.8, Platelet Count 211, Mean Platelet Volume 7.5, Neutrophils (%) (Auto) 72.4, Lymphocytes (% ) (Auto) 16.2L, Monocytes (%) (Auto) 7.9, Eosinophils (%) (Auto) 3.0, Basophils (%) (Auto) 0.5, Sodium Level 142, Potassium Level 3.7, Chloride Level 104, Carbon Dioxide Level 30, Anion Gap 8, Blood Urea Nitrogen 13, Creatinine 1.3H, Estimat Glomerular Filtration Rate > 60, Glucose Level 146H, Calcium Level 9.2 Height (Feet): 5 Height (Inches): 10.00 Weight (Pounds): 112 General Appearance: lethargic EENT: normal ENT inspection Neck: normal alignment Cardiovascular: normal peripheral pulses, normal rate, regular rhythm Respiratory/Chest: chest wall non-tender, lungs clear, decreased breath sounds Abdomen: normal bowel sounds, non tender, soft Extremities: normal inspection Edema: no edema noted Arm (L), no edema noted Arm (R), no edema noted Leg (L), no edema noted Leg (R), no edema noted Pedal (L), no edema noted Pedal (R), no edema noted Generalized Neurologic: motor weakness Skin: normal pigmentation, warm/dry ARLENE MANCIA May 16, 2017 08:10
[2017-05-16] MEDS: Metoprolol Tartrate 12.5mg TAB GT SCH ×2 (08:31→20:47)
[2017-05-16] MEDS: Memantine 10mg tab GT SCH (08:32)
[2017-05-16] MEDS: Aspirin Baby 81mg NG SCH (08:32)
[2017-05-16] MEDS: Heparin 5000 units/ml inj SUBQ SCH ×2 (08:32→20:48)
--- NOTE | 2017-05-16 08:32 | Pulmonology Progress Note ---
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 PLAN OF CARE MS floor abx ID follows urine cx negative blood culture preliminary negative sputum cx if able CXR negative fup with CXR in am leuk today- per ID management creat -1.3 give 1 L NS bolus, monitor renal parameters, lytes, avoid nephrotoxic ECHO with EF 55% and RVSP of 30 cardio follows elevated troponin per cardio - levels flat, nonspecific, no change on ECG medical management with ASA and BB BP management with BB and CCB strict aspiration precautions GT feeding, monitor tolerance O2 HHN prn monitor HH, transfuse prn to keep Hgb above 8 family meeting for further plan and goals of care consider hospice care DNR/DNI status case discussed and evaluated by supervising physician Subjective Allergies: Coded Allergies: No Known Allergies (Unverified , 05/11/17) Subjective leucocytosis today but afebrile on VM 40% sat stable creat up to 1.3 Objective Last 24 Hour Vital Signs Date Time Temp Pulse Resp B/P (MAP) Pulse Ox O2 Delivery O2 Flow Rate FiO2 05/16/17 08:00 97.5 67 17 94/65 99 Venturi Mask 8.0 40 05/16/17 04:00 97.2 74 14 103/61 95 Venturi Mask 8.0 40 05/16/17 00:00 97.0 71 14 105/56 98 Venturi Mask 8.0 40 05/15/17 21:00 70 97/68 05/15/17 20:05 70 18 98 Venturi Mask 8.0 40 05/15/17 20:00 97.0 65 18 97/68 95 Venturi Mask 8.0 40 05/15/17 19:56 68 18 Venturi Mask 8.0 40 05/15/17 19:56 68 18 95 Venturi Mask 8.0 40 05/15/17 19:56 95 Venturi Mask 8.0 40 05/15/17 19:56 Venturi Mask 8.0 40 05/15/17 16:00 97.6 89 20 116/73 97 Venturi Mask 7.0 35 05/15/17 12:00 96.4 64 20 114/76 96 Venturi Mask 7.0 35 05/15/17 09:45 76 118/70 05/15/17 09:45 76 118/70 05/15/17 09:13 98 Venturi Mask 10.0 40 05/15/17 09:13 Venturi Mask 10.0 40 05/15/17 09:13 76 18 Venturi Mask 10.0 40 Objective General Appearance: cachetic, bedridden lethargic male HEENT: normocephalic, atraumatic, VM on with FiO2 40% Respiratory/Chest: rhonchi - few scattered Cardiovascular: normal peripheral pulses, normal rate, regular rhythm, no JVD Abdomen: normal bowel sounds, soft, non tender, G tube Extremities: spastic LE , heel protectors on Neurologic/Psychiatric: bedridden , lethargic Musculoskeletal: atrophy - BLE Laboratory Tests 05/15/17 09:45: White Blood Count 9.7, Red Blood Count 3.75L, Hemoglobin 12.8L, Hematocrit 37.7L , Mean Corpuscular Volume 101H, Mean Corpuscular Hemoglobin 34.2H, Mean Corpuscular Hemoglobin Concent 34.0, Red Cell Distribution Width 11.4L, Platelet Count 247, Mean Platelet Volume 7.3, Neutrophils (%) (Auto) 72.5, Lymphocytes (%) (Auto) 15.0L, Monocytes (%) (Auto) 9.1, Eosinophils (%) (Auto) 2.9, Basophils (%) (Auto) 0.5, Sodium Level 146H, Potassium Level 4.4, Chloride Level 105, Carbon Dioxide Level 29, Anion Gap 12, Blood Urea Nitrogen 12, Creatinine 1.0, Estimat Glomerular Filtration Rate > 60, Glucose Level 110H, Calcium Level 9.7 05/16/17 05:25: White Blood Count 13.4H, Red Blood Count 3.13L, Hemoglobin 10.4L, Hematocrit 31.3L, Mean Corpuscular Volume 100H, Mean Corpuscular Hemoglobin 33.1H, Mean Corpuscular Hemoglobin Concent 33.1, Red Cell Distribution Width 11.8, Platelet Count 211, Mean Platelet Volume 7.5, Neutrophils (%) (Auto) 72.4, Lymphocytes (% ) (Auto) 16.2L, Monocytes (%) (Auto) 7.9, Eosinophils (%) (Auto) 3.0, Basophils (%) (Auto) 0.5, Sodium Level 142, Potassium Level 3.7, Chloride Level 104, Carbon Dioxide Level 30, Anion Gap 8, Blood Urea Nitrogen 13, Creatinine 1.3H, Estimat Glomerular Filtration Rate > 60, Glucose Level 146H, Calcium Level 9.2 Current Medications Medications (Trade) Dose Ordered Sig/Greta Route PRN Reason Start Time Stop Time Status Last Admin Dose Admin Acetaminophen (Tylenol) 650 mg Q4H PRN ORAL fever 05/14/17 02:45 06/10/17 14:44 Albuterol/ Ipratropium (DuoNeb 0.5-3(2.5)mg/3ml) 3 ml Q4H PRN HHN Shortness of Breath 05/14/17 02:45 05/16/17 14:44 05/15/17 19:57 Amlodipine Besylate (Norvasc) 5 mg DAILY GT 05/14/17 09:00 06/11/17 08:59 05/15/17 09:45 Aspirin (ASA) 81 mg DAILY NG 05/14/17 09:00 06/11/17 08:59 05/15/17 09:46 Atorvastatin Calcium (Lipitor) 10 mg BEDTIME GT 05/14/17 21:00 06/10/17 20:59 05/15/17 21:20 Heparin Sodium (Porcine) (Heparin 5000 units/ml) 5,000 units EVERY 12 HOURS SUBQ 05/14/17 09:00 06/10/17 20:59 05/15/17 21:23 Memantine (Namenda) 10 mg DAILY GT 05/14/17 09:00 06/11/17 08:59 05/15/17 09:45 Metoprolol Tartrate (Lopressor) 12.5 mg Q12HR GT 05/14/17 09:00 06/10/17 20:59 05/15/17 09:45 Morphine Sulfate (Morphine Sulfate) 2 mg Q4H PRN IVP Moderate Pain (Pain Scale 4-6) 05/14/17 02:45 05/18/17 14:44 Mupirocin (Bactroban Oint) 1 applic THREE TIMES A DAY TOPIC 05/14/17 20:30 05/19/17 20:29 05/15/17 17:01 Ondansetron HCl (Zofran) 4 mg Q6H PRN IVP Nausea & Vomiting 05/14/17 02:45 06/10/17 14:44 Phenazopyridine HCl (Pyridium) 100 mg DAILYPRN PRN GT dysuria 05/14/17 17:30 06/10/17 14:44 Piperacillin Sod/ Tazobactam Sod 3.375 gm/Dextrose 110 ml @ 27.5 mls/hr EVERY 8 HOURS IVPB 05/14/17 06:00 05/18/17 16:59 05/16/17 06:02 Polyethylene Glycol (Miralax) 17 gm DAILYPRN PRN GT Constipation 05/14/17 17:30 06/10/17 14:44 Temazepam (Restoril) 15 mg HSPRN PRN GT Insomnia 05/14/17 17:30 05/18/17 14:44 Vancomycin HCl (Vanco rx to dose) 1 ea DAILYPRN PRN MISC RX PROTOCOL 05/14/17 17:15 06/10/17 17:14 Vancomycin HCl/ Dextrose 250 ml @ 166.667 mls/hr Q12HR@0100,1300 IVPB 05/16/17 01:00 05/18/17 00:59 05/16/17 04:02 Ender Hagan)Stacey NP May 16, 2017 08:32
[2017-05-16] MEDS ORDERED: NS 275ml ONE (09:14)
[2017-05-17] MEDS: Vancomycin 1250mg/D5W 250ml 250 ML IVPB SCH ×2 (00:58→12:56)
[2017-05-17 04:08] VITALS: BP 102/60
[2017-05-17] MEDS: Piperacillin/Tazobactam 3.375 GM in D5W 110 ML IVPB SCH ×3 (04:55→22:14)
[2017-05-17 06:19] LABS: BASOPHILS % (AUTO) 0.3 % (0.0-2.0); EOSINOPHILS % (AUTO) 2.8 % (0.0-3.0); LYMPHOCYTES % (AUTO) 14.1 % (20.0-45.0); MEAN CORPUSCULAR HGB CONC 33.7 G/DL (32.0-36.0); MEAN CORPUSCULAR VOLUME 101 FL (80-99); MEAN PLATELET VOLUME 7.3 FL (6.5-10.1); NEUTROPHILS % (AUTO) 74.7 % (45.0-75.0); PLATELET COUNT 213 K/UL (150-450); RED BLOOD COUNT 3.36 M/UL (4.70-6.10); RED CELL DISTRIBUTION WIDTH 11.7 % (11.6-14.8); WHITE BLOOD COUNT 11.8 K/UL (4.8-10.8)
[2017-05-17 06:40] LABS: ANION GAP 12 (5-15); CALCIUM 9.6 mg/dL (8.6-10.2); CARBON DIOXIDE 28 mEQ/L (20-30); CHLORIDE 105 mEQ/L (98-107); CREATININE 1.3 mg/dL (0.7-1.2); GLOMERULAR FILTRATION RATE > 60 mL/min (>60); HEMOLYSIS 2; POTASSIUM 4.2 mEQ/L (3.4-4.9); SODIUM 145 mEQ/L (135-145)
[2017-05-17 08:00] VITALS: BP 102/71
[2017-05-17] MEDS: Memantine 10mg tab GT SCH (08:44)
[2017-05-17] MEDS: Aspirin Baby 81mg NG SCH (08:44)
[2017-05-17] MEDS: Heparin 5000 units/ml inj SUBQ SCH ×2 (08:47→22:11)
[2017-05-17] MEDS: Metoprolol Tartrate 12.5mg TAB GT SCH ×2 (08:50→21:00)
--- NOTE | 2017-05-17 10:53 | Diagnostic Imaging Report ---
Indication: SOB Technique: One view of the chest Comparison: 05/13/2017 Findings: There is retrocardiac consolidation. Left upper lung, right lung, bilateral pleural spaces are clear. Heart size is normal Impression: Positive for retrocardiac consolidation, probably pneumonia, which is new since previous exam of 05/13/2017
[2017-05-17 12:01] VITALS: BP 94/57
--- NOTE | 2017-05-17 13:54 | General Progress Note ---
Assessment/Plan Problem List: (1) UTI (urinary tract infection) ICD Codes: N39.0 - Urinary tract infection, site not specified SNOMED: 02251692 (2) Fever ICD Codes: R50.9 - Fever, unspecified SNOMED: 397711822 (3) HTN (hypertension) ICD Codes: I10 - Essential (primary) hypertension SNOMED: 95064197 (4) Weak ICD Codes: R53.1 - Weakness SNOMED: 32772373 (5) Altered level of consciousness ICD Codes: R40.4 - Transient alteration of awareness SNOMED: 6245186 (6) Sepsis ICD Codes: A41.9 - Sepsis, unspecified organism SNOMED: 65079386 Status: unchanged Assessment/Plan o2 pulm tx abx cbc bmp am dc plan w hospice Subjective Constitutional: Reports: weakness Allergies: Coded Allergies: No Known Allergies (Unverified , 05/11/17) All Systems: reviewed and negative except above Subjective 02 mask altered Objective Last 24 Hour Vital Signs Date Time Temp Pulse Resp B/P (MAP) Pulse Ox O2 Delivery O2 Flow Rate FiO2 05/17/17 12:01 97.0 69 18 94/57 99 Venturi Mask 7.0 35 05/17/17 08:00 96.8 75 20 102/71 97 Venturi Mask 7.0 35 05/17/17 04:08 98.6 68 18 102/60 98 Venturi Mask 10.0 40 05/16/17 20:47 64 106/64 05/16/17 20:00 97.8 64 18 106/64 97 Venturi Mask 10.0 40 05/16/17 19:29 Venturi Mask 8.0 40 05/16/17 19:29 97 Venturi Mask 8.0 40 05/16/17 16:01 96.6 68 20 108/69 100 Venturi Mask 7.0 35 Laboratory Tests 05/17/17 04:45: White Blood Count 11.8H, Red Blood Count 3.36L, Hemoglobin 11.4L, Hematocrit 33.8L, Mean Corpuscular Volume 101H, Mean Corpuscular Hemoglobin 34.0H, Mean Corpuscular Hemoglobin Concent 33.7, Red Cell Distribution Width 11.7, Platelet Count 213, Mean Platelet Volume 7.3, Neutrophils (%) (Auto) 74.7, Lymphocytes (% ) (Auto) 14.1L, Monocytes (%) (Auto) 8.0, Eosinophils (%) (Auto) 2.8, Basophils (%) (Auto) 0.3, Sodium Level 145, Potassium Level 4.2, Chloride Level 105, Carbon Dioxide Level 28, Anion Gap 12, Blood Urea Nitrogen 12, Creatinine 1.3H, Estimat Glomerular Filtration Rate > 60, Glucose Level 99, Calcium Level 9.6 Height (Feet): 5 Height (Inches): 10.00 Weight (Pounds): 112 General Appearance: lethargic EENT: normal ENT inspection Neck: normal alignment Cardiovascular: normal peripheral pulses, normal rate, regular rhythm Respiratory/Chest: chest wall non-tender, lungs clear, normal breath sounds Abdomen: normal bowel sounds, non tender, soft Extremities: normal inspection Edema: no edema noted Arm (L), no edema noted Arm (R), no edema noted Leg (L), no edema noted Leg (R), no edema noted Pedal (L), no edema noted Pedal (R), no edema noted Generalized Neurologic: motor weakness Skin: normal pigmentation, warm/dry ARLENE MANCIA May 17, 2017 13:54
[2017-05-17 16:00] VITALS: BP 111/67
--- NOTE | 2017-05-17 17:47 | Infectious Diseases Prog Note ---
Assessment/Plan Problems: (1) Sepsis Assessment & Plan: improving on vancomycin and zosyn , CXR, no new infiltrates (2) Pneumonia Assessment & Plan: on vancomycin and zosyn, monitor CXR (3) NSTEMI (non-ST elevated myocardial infarction) Assessment & Plan: cardiology is following (4) Altered level of consciousness Assessment & Plan: has poor prognosis, not improving, consider palliative care and hospice Subjective ROS Limited/Unobtainable: Yes Allergies: Coded Allergies: No Known Allergies (Unverified , 05/11/17) Subjective he was lying in bed, unresponsive, on high flow oxygen via mask Objective Vital Signs Last 24 Hour Vital Signs Date Time Temp Pulse Resp B/P (MAP) Pulse Ox O2 Delivery O2 Flow Rate FiO2 05/17/17 16:00 97.0 75 20 111/67 98 Venturi Mask 7.0 35 05/17/17 12:01 97.0 69 18 94/57 99 Venturi Mask 7.0 35 05/17/17 08:00 96.8 75 20 102/71 97 Venturi Mask 7.0 35 05/17/17 04:08 98.6 68 18 102/60 98 Venturi Mask 10.0 40 05/16/17 20:47 64 106/64 05/16/17 20:00 97.8 64 18 106/64 97 Venturi Mask 10.0 40 05/16/17 19:29 Venturi Mask 8.0 40 05/16/17 19:29 97 Venturi Mask 8.0 40 Height (Feet): 5 Height (Inches): 10.00 Weight (Pounds): 112 General Appearance: WD/WN, no acute distress HEENT: normocephalic, atraumatic, anicteric Respiratory/Chest: chest wall non-tender, lungs clear, normal breath sounds, no respiratory distress, no accessory muscle use Cardiovascular: normal peripheral pulses, normal rate, regular rhythm, no gallop/murmur Abdomen: normal bowel sounds, soft, non tender, no organomegaly, non distended , no mass Extremities: no cyanosis, no clubbing Skin: no rash, no lesions, ulcers Laboratory Tests Test 05/17/17 04:45 White Blood Count 11.8 K/UL (4.8-10.8) H Red Blood Count 3.36 M/UL (4.70-6.10) L Hemoglobin 11.4 G/DL (14.2-18.0) L Hematocrit 33.8 % (42.0-52.0) L Mean Corpuscular Volume 101 FL (80-99) H Mean Corpuscular Hemoglobin 34.0 PG (27.0-31.0) H Mean Corpuscular Hemoglobin Concent 33.7 G/DL (32.0-36.0) Red Cell Distribution Width 11.7 % (11.6-14.8) Platelet Count 213 K/UL (150-450) Mean Platelet Volume 7.3 FL (6.5-10.1) Neutrophils (%) (Auto) 74.7 % (45.0-75.0) Lymphocytes (%) (Auto) 14.1 % (20.0-45.0) L Monocytes (%) (Auto) 8.0 % (1.0-10.0) Eosinophils (%) (Auto) 2.8 % (0.0-3.0) Basophils (%) (Auto) 0.3 % (0.0-2.0) Sodium Level 145 mEQ/L (135-145) Potassium Level 4.2 mEQ/L (3.4-4.9) Chloride Level 105 mEQ/L (98-107) Carbon Dioxide Level 28 mEQ/L (20-30) Anion Gap 12 (5-15) Blood Urea Nitrogen 12 mg/dL (7-23) Creatinine 1.3 mg/dL (0.7-1.2) H Estimat Glomerular Filtration Rate > 60 mL/min (>60) Glucose Level 99 mg/dL (74-106) Calcium Level 9.6 mg/dL (8.6-10.2) Current Medications Medications (Trade) Dose Ordered Sig/Greta Route PRN Reason Start Time Stop Time Status Last Admin Dose Admin Acetaminophen (Tylenol) 650 mg Q4H PRN ORAL fever 05/14/17 02:45 06/10/17 14:44 05/16/17 14:04 Amlodipine Besylate (Norvasc) 5 mg DAILY GT 05/14/17 09:00 06/11/17 08:59 05/15/17 09:45 Aspirin (ASA) 81 mg DAILY NG 05/14/17 09:00 06/11/17 08:59 05/17/17 08:44 Atorvastatin Calcium (Lipitor) 10 mg BEDTIME GT 05/14/17 21:00 06/10/17 20:59 05/16/17 20:47 Heparin Sodium (Porcine) (Heparin 5000 units/ml) 5,000 units EVERY 12 HOURS SUBQ 05/14/17 09:00 06/10/17 20:59 05/17/17 08:47 Memantine (Namenda) 10 mg DAILY GT 05/14/17 09:00 06/11/17 08:59 05/17/17 08:44 Metoprolol Tartrate (Lopressor) 12.5 mg Q12HR GT 05/14/17 09:00 06/10/17 20:59 05/15/17 09:45 Morphine Sulfate (Morphine Sulfate) 2 mg Q4H PRN IVP Moderate Pain (Pain Scale 4-6) 05/14/17 02:45 05/18/17 14:44 Mupirocin (Bactroban Oint) 1 applic THREE TIMES A DAY TOPIC 05/14/17 20:30 05/19/17 20:29 05/17/17 16:54 Ondansetron HCl (Zofran) 4 mg Q6H PRN IVP Nausea & Vomiting 05/14/17 02:45 06/10/17 14:44 Phenazopyridine HCl (Pyridium) 100 mg DAILYPRN PRN GT dysuria 05/14/17 17:30 06/10/17 14:44 Piperacillin Sod/ Tazobactam Sod 3.375 gm/Dextrose 110 ml @ 27.5 mls/hr EVERY 8 HOURS IVPB 05/14/17 06:00 05/22/17 05:59 05/17/17 14:31 Polyethylene Glycol (Miralax) 17 gm DAILYPRN PRN GT Constipation 05/14/17 17:30 06/10/17 14:44 Temazepam (Restoril) 15 mg HSPRN PRN GT Insomnia 05/14/17 17:30 05/18/17 14:44 Vancomycin HCl (Vanco rx to dose) 1 ea DAILYPRN PRN MISC RX PROTOCOL 05/14/17 17:15 06/10/17 17:14 Vancomycin HCl/ Dextrose 250 ml @ 166.667 mls/hr Q12HR@0100,1300 IVPB 05/16/17 01:00 05/22/17 00:59 05/17/17 12:56 Tavo Chopra M.D. May 17, 2017 17:47
--- NOTE | 2017-05-17 18:23 | Cardiac Electrophysiology PN ---
Assessment/Plan Assessment/Plan 1. Troponin leak 0.8,0.7,0.7 and 0.6. Levels are flat and nonspecific. CPKs are negative and EKG does not show any acute ischemic changes. The patient is nonverbal.On aspirin and Lopressor 2. Hypertension, on Norvasc 5 mg daily and Lopressor 12.5 mg b.i.d. 3. Sepsis, elevated white count, on vancomycin and cefepime. 4. Dysphagia, status post percutaneous endoscopic gastrostomy placement. 5. Chronic encephalopathy and Alzheimer's. MEETA RN. DC planning in am. Subjective Subjective Non verbal comfortable. No events overnight. Objective Last 24 Hour Vital Signs Date Time Temp Pulse Resp B/P (MAP) Pulse Ox O2 Delivery O2 Flow Rate FiO2 05/17/17 16:00 97.0 75 20 111/67 98 Venturi Mask 7.0 35 05/17/17 12:01 97.0 69 18 94/57 99 Venturi Mask 7.0 35 05/17/17 08:00 96.8 75 20 102/71 97 Venturi Mask 7.0 35 05/17/17 04:08 98.6 68 18 102/60 98 Venturi Mask 10.0 40 05/16/17 20:47 64 106/64 05/16/17 20:00 97.8 64 18 106/64 97 Venturi Mask 10.0 40 05/16/17 19:29 Venturi Mask 8.0 40 05/16/17 19:29 97 Venturi Mask 8.0 40 Intake and Output 05/17/17 05/18/17 19:00 07:00 Intake Total 1065.834 ml Balance 1065.834 ml Free Water 100 ml IV Total 415.834 ml Tube Feeding 550 ml Laboratory Tests Test 05/17/17 04:45 White Blood Count 11.8 K/UL (4.8-10.8) H Red Blood Count 3.36 M/UL (4.70-6.10) L Hemoglobin 11.4 G/DL (14.2-18.0) L Hematocrit 33.8 % (42.0-52.0) L Mean Corpuscular Volume 101 FL (80-99) H Mean Corpuscular Hemoglobin 34.0 PG (27.0-31.0) H Mean Corpuscular Hemoglobin Concent 33.7 G/DL (32.0-36.0) Red Cell Distribution Width 11.7 % (11.6-14.8) Platelet Count 213 K/UL (150-450) Mean Platelet Volume 7.3 FL (6.5-10.1) Neutrophils (%) (Auto) 74.7 % (45.0-75.0) Lymphocytes (%) (Auto) 14.1 % (20.0-45.0) L Monocytes (%) (Auto) 8.0 % (1.0-10.0) Eosinophils (%) (Auto) 2.8 % (0.0-3.0) Basophils (%) (Auto) 0.3 % (0.0-2.0) Sodium Level 145 mEQ/L (135-145) Potassium Level 4.2 mEQ/L (3.4-4.9) Chloride Level 105 mEQ/L (98-107) Carbon Dioxide Level 28 mEQ/L (20-30) Anion Gap 12 (5-15) Blood Urea Nitrogen 12 mg/dL (7-23) Creatinine 1.3 mg/dL (0.7-1.2) H Estimat Glomerular Filtration Rate > 60 mL/min (>60) Glucose Level 99 mg/dL (74-106) Calcium Level 9.6 mg/dL (8.6-10.2) Objective NECK: Nno JVD.Mouth breather. Face Mask on. LUNGS: Coarse rhonchi. CARDIOVASCULAR: Regular S1 and S2 with no gallop or murmur. ABDOMEN: Status post G-tube. EXTREMITIES: No pitting edema. TYSON NOVOA May 17, 2017 18:23
[2017-05-17 20:00] VITALS: BP 102/71
--- NOTE | 2017-05-17 22:15 | Consultation ---
DATE OF CONSULTATION: HEAD AND NECK SURGERY/ENT CONSULTATION CONSULTING PHYSICIAN: Eddie Rueda M.D. REQUESTING PHYSICIAN: Sridhar Jiang D.O. INDICATION FOR CONSULTATION: I have been asked to see the patient for locked jaw. He is 67 years old. PAST MEDICAL HISTORY: Includes Alzheimer's, upper urinary tract infection leading to sepsis, which was the reason he was admitted to the hospital. It is unknown how long he has had the jaw issue, but it appears from where I have been told that this has been for a period of time and not related to the urinary tract infection. MEDICATIONS: Include Lipitor, Pyridium, MiraLax, Restoril, vancomycin, Norvasc, Namedia, Lopressor, Tylenol, DuoNeb, morphine sulfate, and Zofran. PHYSICAL EXAMINATION: GENERAL: The patient is a 67-year-old gentleman, who is 177.8 cm, 50.802 kilograms, and BMI 16.1, lying in bed with an oxygen mask over him, noncommunicative and not really responding much, certainly not to verbal cues and when I touched him, he did not seem to be in any pain or discomfort, although his mouth is partially open. HEENT: Ears, positive light reflex. Normal canal. Nose normal. Mouth normal inside, although his teeth do not close. It appears he has a locked jaw NECK: Normal. 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 PLAN: I would recommend that he see even an oral surgeon. If not available, then a dental surgeon. I do not know any dentists or oral surgeon to take [facility], but this is not a reason to keep him in the hospital. This appears to be a chronic issue and not something new. I would get a CT scan and most probably, he will need manipulation in an operating room, but this is best done by an oral surgeon in today's environment. Thank you very much for asking my opinion in the care and treatment of this patient. Eddie Rueda M.D. DR: Shana JOB#: [id number] CC:
--- NOTE | 2017-05-17 22:15 | Consultation ---
DATE OF CONSULTATION: 05/15/2017 PSYCHOTHERAPY CONSULTATION PROGRESS NOTE CONSULTING PHYSICIAN: Kati Minor M.D. TREATING ATTENDING PHYSICIAN: Sridhar Jiang D.O. HISTORY OF PRESENT ILLNESS: The patient is a 67-year-old male patient. The patient is from [facility] back to the hospital for congestion, fever, tachycardia. The patient has altered mental status, confused, unable to provide logical or viable plan for own self-care. The patient at this time is a very poor historian. Due to his confusion and disorganization, requested for psychotherapeutic services. The patient is very confused, unable to provide viable or logical information at this time and he remains a poor historian. There is no indication of auditory or visual hallucinations. There is no indication of suicidal or homicidal thoughts of ideation at this time. PAST MEDICAL HISTORY: Includes history of hypertension, weakness, and altered mental status. ALLERGIES: The patient has no known drug allergies. SUBSTANCE ABUSE HISTORY: There is no indication of alcohol use, illicit substance use, or smoking cigarettes. PSYCHIATRIC HISTORY: The patient has a history of altered mental status. SOCIAL HISTORY: The patient is a 67-year-old male patient from [facility]. Financially sustained through Medicare and [employer]. MENTAL STATUS EXAMINATION: The patient is alert and oriented to person. Mood is dysphoric. Affect blunted. Thought process is disorganized. The patient has poor attention and concentration. Poor insight, judgment, and impulse control. DIAGNOSES: AXIS I Rule out major depressive disorder, single episode, moderate. AXIS II Deferred. AXIS III Per History and Physical. PLAN: This clinician assessed this patient's mental status. Provided the patient with reality orientation. Currently there is no indication of auditory or visual hallucinations. There is no indication of suicidal or homicidal thoughts of ideation. Continue with medication management and behavioral management. Continue to assess the patient. This clinician has reviewed the patient's chart and discussed the treatment with nursing staff. Kati Minor PsyD. DR: Carla JOB#: [id number] CC:
--- NOTE | 2017-05-17 22:46 | Pulmonology Progress Note ---
Assessment/Plan Problems: (1) Sepsis (2) NSTEMI (non-ST elevated myocardial infarction) (3) Pneumonia (4) Alzheimer disease (5) Feeding by G-tube Assessment/Plan afebrile comfortable check cultures family meeting for plan of care med/surg she might consider d/c feeding and do only "comfort meds" Subjective ROS Limited/Unobtainable: Yes Constitutional: Reports: no symptoms HEENT: Repors: no symptoms Respiratory: Reports: no symptoms Allergies: Coded Allergies: No Known Allergies (Unverified , 05/11/17) Objective Last 24 Hour Vital Signs Date Time Temp Pulse Resp B/P (MAP) Pulse Ox O2 Delivery O2 Flow Rate FiO2 05/17/17 21:00 74 102/71 05/17/17 20:03 Venturi Mask 6.0 35 05/17/17 20:03 97 Venturi Mask 6.0 35 05/17/17 20:00 97.7 74 16 102/71 99 Venturi Mask 7.0 05/17/17 16:00 97.0 75 20 111/67 98 Venturi Mask 7.0 35 05/17/17 12:01 97.0 69 18 94/57 99 Venturi Mask 7.0 35 05/17/17 08:00 96.8 75 20 102/71 97 Venturi Mask 7.0 35 05/17/17 04:08 98.6 68 18 102/60 98 Venturi Mask 10.0 40 Intake and Output 05/17/17 05/18/17 19:00 07:00 Intake Total 1065.834 ml Output Total 1000 ml Balance 65.834 ml Free Water 100 ml IV Total 415.834 ml Tube Feeding 550 ml Output Urine Total 1000 ml General Appearance: WD/WN HEENT: normocephalic, atraumatic Respiratory/Chest: chest wall non-tender, lungs clear Cardiovascular: normal peripheral pulses, normal rate Abdomen: normal bowel sounds, soft, non tender Genitourinary: normal external genitalia Extremities: no cyanosis, no clubbing Neurologic/Psychiatric: box turner II-XII grossly normal, no motor/sensory deficits Laboratory Tests 05/17/17 04:45: White Blood Count 11.8H, Red Blood Count 3.36L, Hemoglobin 11.4L, Hematocrit 33.8L, Mean Corpuscular Volume 101H, Mean Corpuscular Hemoglobin 34.0H, Mean Corpuscular Hemoglobin Concent 33.7, Red Cell Distribution Width 11.7, Platelet Count 213, Mean Platelet Volume 7.3, Neutrophils (%) (Auto) 74.7, Lymphocytes (% ) (Auto) 14.1L, Monocytes (%) (Auto) 8.0, Eosinophils (%) (Auto) 2.8, Basophils (%) (Auto) 0.3, Sodium Level 145, Potassium Level 4.2, Chloride Level 105, Carbon Dioxide Level 28, Anion Gap 12, Blood Urea Nitrogen 12, Creatinine 1.3H, Estimat Glomerular Filtration Rate > 60, Glucose Level 99, Calcium Level 9.6 Current Medications Medications (Trade) Dose Ordered Sig/Greta Route PRN Reason Start Time Stop Time Status Last Admin Dose Admin Acetaminophen (Tylenol) 650 mg Q4H PRN ORAL fever 05/14/17 02:45 06/10/17 14:44 05/16/17 14:04 Amlodipine Besylate (Norvasc) 5 mg DAILY GT 05/14/17 09:00 06/11/17 08:59 05/15/17 09:45 Aspirin (ASA) 81 mg DAILY NG 05/14/17 09:00 06/11/17 08:59 05/17/17 08:44 Atorvastatin Calcium (Lipitor) 10 mg BEDTIME GT 05/14/17 21:00 06/10/17 20:59 05/17/17 22:04 Heparin Sodium (Porcine) (Heparin 5000 units/ml) 5,000 units EVERY 12 HOURS SUBQ 05/14/17 09:00 06/10/17 20:59 05/17/17 22:11 Memantine (Namenda) 10 mg DAILY GT 05/14/17 09:00 06/11/17 08:59 05/17/17 08:44 Metoprolol Tartrate (Lopressor) 12.5 mg Q12HR GT 05/14/17 09:00 06/10/17 20:59 05/15/17 09:45 Morphine Sulfate (Morphine Sulfate) 2 mg Q4H PRN IVP Moderate Pain (Pain Scale 4-6) 05/14/17 02:45 05/18/17 14:44 Mupirocin (Bactroban Oint) 1 applic THREE TIMES A DAY TOPIC 05/14/17 20:30 05/19/17 20:29 05/17/17 16:54 Ondansetron HCl (Zofran) 4 mg Q6H PRN IVP Nausea & Vomiting 05/14/17 02:45 06/10/17 14:44 Phenazopyridine HCl (Pyridium) 100 mg DAILYPRN PRN GT dysuria 05/14/17 17:30 06/10/17 14:44 Piperacillin Sod/ Tazobactam Sod 3.375 gm/Dextrose 110 ml @ 27.5 mls/hr EVERY 8 HOURS IVPB 05/14/17 06:00 05/22/17 05:59 05/17/17 22:14 Polyethylene Glycol (Miralax) 17 gm DAILYPRN PRN GT Constipation 05/14/17 17:30 06/10/17 14:44 Temazepam (Restoril) 15 mg HSPRN PRN GT Insomnia 05/14/17 17:30 05/18/17 14:44 Vancomycin HCl (Vanco rx to dose) 1 ea DAILYPRN PRN MISC RX PROTOCOL 05/14/17 17:15 06/10/17 17:14 Vancomycin HCl/ Dextrose 250 ml @ 166.667 mls/hr Q12HR@0100,1300 IVPB 05/16/17 01:00 05/22/17 00:59 05/17/17 12:56 BESSY PERKINS May 17, 2017 22:46
[2017-05-17 23:38] VITALS: BP 108/66
[2017-05-18 04:00] VITALS: BP 106/76
[2017-05-18] MEDS: Piperacillin/Tazobactam 3.375 GM in D5W 110 ML IVPB SCH (05:57)
[2017-05-18 08:13] VITALS: BP 120/84
[2017-05-18] MEDS: Aspirin Baby 81mg NG SCH (08:47)
[2017-05-18] MEDS: Metoprolol Tartrate 12.5mg TAB GT SCH (08:47)
[2017-05-18] MEDS: Memantine 10mg tab GT SCH (08:47)
[2017-05-18] MEDS: Heparin 5000 units/ml inj SUBQ SCH (08:50)
[2017-05-18] MEDS ORDERED: METOPROLOL TART25 MG ORAL (11:13)
[2017-05-18] MEDS ORDERED: MORPHINE 22 MG/1 ML IV (11:13)
[2017-05-18] MEDS ORDERED: ZOFRAN 4 MG4 MG/2 ML IV (11:13)
[2017-05-18] MEDS ORDERED: MIRALAX17 G2 ORAL (11:14)
[2017-05-18] MEDS ORDERED: PHENAZOPYRIDIN100 MG ORAL (11:14)
[2017-05-18] MEDS ORDERED: HEPARIN SO5000 UNIT2 SUBQ (11:15)
[2017-05-18] MEDS ORDERED: RESTORIL15 MG ORAL (11:15)
[2017-05-18 12:00] VITALS: BP 125/80
[2017-05-18] MEDS ORDERED: ZOSYN 3.373.375 GM/1 IVPB (12:04)
--- NOTE | 2017-05-18 14:31 | General Progress Note ---
Assessment/Plan Problem List: (1) UTI (urinary tract infection) ICD Codes: N39.0 - Urinary tract infection, site not specified SNOMED: 39386686 (2) Fever ICD Codes: R50.9 - Fever, unspecified SNOMED: 191555322 (3) HTN (hypertension) ICD Codes: I10 - Essential (primary) hypertension SNOMED: 76054932 (4) Weak ICD Codes: R53.1 - Weakness SNOMED: 20515287 (5) Altered level of consciousness ICD Codes: R40.4 - Transient alteration of awareness SNOMED: 7186883 (6) Sepsis ICD Codes: A41.9 - Sepsis, unspecified organism SNOMED: 68188339 Status: stable, progressing, tolerating diet Assessment/Plan o2 pulm tx abx dc plan w hospice Subjective Constitutional: Reports: weakness Allergies: Coded Allergies: No Known Allergies (Unverified , 05/11/17) All Systems: reviewed and negative except above Subjective 02 mask altered Objective Last 24 Hour Vital Signs Date Time Temp Pulse Resp B/P (MAP) Pulse Ox O2 Delivery O2 Flow Rate FiO2 05/18/17 12:00 98.6 72 20 125/80 97 Venturi Mask 10.0 05/18/17 08:47 75 120/84 05/18/17 08:47 75 120/84 05/18/17 08:13 98.8 75 20 120/84 97 Venturi Mask 10.0 05/18/17 07:51 Venturi Mask 6.0 35 05/18/17 07:50 97 Venturi Mask 6.0 35 05/18/17 04:00 97.2 71 16 106/76 96 Venturi Mask 7.0 05/17/17 23:38 97.5 68 16 108/66 97 Venturi Mask 05/17/17 21:00 74 102/71 05/17/17 20:03 Venturi Mask 6.0 35 05/17/17 20:03 97 Venturi Mask 6.0 35 05/17/17 20:00 97.7 74 16 102/71 99 Venturi Mask 7.0 05/17/17 16:00 97.0 75 20 111/67 98 Venturi Mask 7.0 35 Laboratory Tests 05/18/17 00:15: Vancomycin Level Trough 39.3H Height (Feet): 5 Height (Inches): 10.00 Weight (Pounds): 112 EENT: normal ENT inspection Neck: normal alignment Cardiovascular: normal peripheral pulses, normal rate, regular rhythm Respiratory/Chest: chest wall non-tender, lungs clear, normal breath sounds Abdomen: normal bowel sounds, non tender, soft Extremities: normal inspection Edema: no edema noted Arm (L), no edema noted Arm (R), no edema noted Leg (L), no edema noted Leg (R), no edema noted Pedal (L), no edema noted Pedal (R), no edema noted Generalized Neurologic: motor weakness Skin: normal pigmentation, warm/dry ARLENE MANCIA May 18, 2017 14:31
[2017-05-18] MEDS ORDERED: NS 275ml ONE (15:00)
[2017-05-18] MEDS ORDERED: 1/2 NS 1000ml IV ONE (15:00)
[2017-05-18] MEDS ORDERED: Tubing IV Secondary IV ONE (15:00)
--- NOTE | 2017-05-18 16:40 | Pulmonology Progress Note ---
Assessment/Plan Problems: (1) Sepsis (2) NSTEMI (non-ST elevated myocardial infarction) (3) Pneumonia (4) Alzheimer disease (5) Feeding by G-tube Assessment/Plan doing better ok to dc to [facility] with hospice care continue comfort meds Subjective ROS Limited/Unobtainable: No Constitutional: Reports: no symptoms HEENT: Repors: no symptoms Respiratory: Reports: no symptoms Allergies: Coded Allergies: No Known Allergies (Unverified , 05/11/17) Objective Last 24 Hour Vital Signs Date Time Temp Pulse Resp B/P (MAP) Pulse Ox O2 Delivery O2 Flow Rate FiO2 05/18/17 12:00 98.6 72 20 125/80 97 Venturi Mask 10.0 05/18/17 08:47 75 120/84 05/18/17 08:47 75 120/84 05/18/17 08:13 98.8 75 20 120/84 97 Venturi Mask 10.0 05/18/17 07:51 Venturi Mask 6.0 35 05/18/17 07:50 97 Venturi Mask 6.0 35 05/18/17 04:00 97.2 71 16 106/76 96 Venturi Mask 7.0 05/17/17 23:38 97.5 68 16 108/66 97 Venturi Mask 05/17/17 21:00 74 102/71 05/17/17 20:03 Venturi Mask 6.0 35 05/17/17 20:03 97 Venturi Mask 6.0 35 05/17/17 20:00 97.7 74 16 102/71 99 Venturi Mask 7.0 Intake and Output 05/18/17 05/19/17 19:00 07:00 Output Total 600 ml Balance -600 ml Output Urine Total 600 ml General Appearance: WD/WN HEENT: normocephalic, atraumatic Respiratory/Chest: chest wall non-tender, lungs clear Cardiovascular: normal peripheral pulses, normal rate Abdomen: normal bowel sounds, soft, non tender 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
--- NOTE | 2017-05-18 17:14 | Infectious Diseases Prog Note ---
Assessment/Plan Problems: (1) Sepsis Assessment & Plan: improving on vancomycin and zosyn , will treat for 10 days total .CXR, no new infiltrates (2) Pneumonia Assessment & Plan: on vancomycin and zosyn, monitor CXR (3) NSTEMI (non-ST elevated myocardial infarction) Assessment & Plan: cardiology is following (4) Altered level of consciousness Assessment & Plan: has poor prognosis, not improving, consider palliative care and hospice Subjective ROS Limited/Unobtainable: Yes Allergies: Coded Allergies: No Known Allergies (Unverified , 05/11/17) Subjective he was lying in bed, unresponsive, on high flow oxygen via mask Objective Vital Signs Last 24 Hour Vital Signs Date Time Temp Pulse Resp B/P (MAP) Pulse Ox O2 Delivery O2 Flow Rate FiO2 05/18/17 12:00 98.6 72 20 125/80 97 Venturi Mask 10.0 05/18/17 08:47 75 120/84 05/18/17 08:47 75 120/84 05/18/17 08:13 98.8 75 20 120/84 97 Venturi Mask 10.0 05/18/17 07:51 Venturi Mask 6.0 35 05/18/17 07:50 97 Venturi Mask 6.0 35 05/18/17 04:00 97.2 71 16 106/76 96 Venturi Mask 7.0 05/17/17 23:38 97.5 68 16 108/66 97 Venturi Mask 05/17/17 21:00 74 102/71 05/17/17 20:03 Venturi Mask 6.0 35 05/17/17 20:03 97 Venturi Mask 6.0 35 05/17/17 20:00 97.7 74 16 102/71 99 Venturi Mask 7.0 Height (Feet): 5 Height (Inches): 10.00 Weight (Pounds): 112 General Appearance: WD/WN, no acute distress HEENT: normocephalic, atraumatic, anicteric, mucous membranes moist Respiratory/Chest: chest wall non-tender, lungs clear, normal breath sounds, no respiratory distress, no accessory muscle use Cardiovascular: normal peripheral pulses, normal rate, regular rhythm, no gallop/murmur, no JVD Abdomen: normal bowel sounds, soft, non tender, no organomegaly, non distended , no mass Extremities: no cyanosis, no clubbing Skin: no rash, no lesions, no ulcers Laboratory Tests Test 05/18/17 00:15 Vancomycin Level Trough 39.3 ug/mL (5.0-12.0) H Tavo Chopra M.D. May 18, 2017 17:14
--- NOTE | 2017-05-20 12:58 | Discharge Summary ---
Discharge Summary Hospital Course Date of Admission May 11, 2017 at 14:04 Date of Discharge May 18, 2017 at 15:01 Admitting Diagnosis shortness of breath/ fever SOMMER Escobar is a 67 year old male who was admitted on May 11, 2017 at 14:04 for Shortness Of Breath,Fever Hospital Course [id number] Discharge Discharge Disposition Patient was discharged to SNF/Subacute Facility(03) Discharge Diagnoses: Sulma Irene NP May 20, 2017 12:57
--- NOTE | 2017-05-21 17:15 | Discharge Summary 2 SIG ---
DATE OF ADMISSION: 05/11/2017 DATE OF DISCHARGE: 05/18/2017 CONSULTANTS: 1. Tavo Chopra M.D. 2. Ani Douglass M.D. 3. Eddie Rueda M.D. 4. Kati Minor M.D. 5. Elvin Thomson M.D. Brief Hospital Course: The patient is a 67-year-old male from [facility], who presented to ED with fever, tachycardia, congestion, and weakness. He was noted to be congested and hypoxic at the skilled nursing and was also febrile. He was given Tylenol. On evaluation at ED, he was afebrile. Laboratories showed leukocytosis. WBC was elevated to 22. He had a chest x-ray done that showed no acute infiltrates. EKG was in normal sinus rhythm. Troponin was elevated to 0.71 and BNP was 1907. He was admitted for elevated troponin and pneumonia. The patient's CPK was negative. EKG did not show any acute ischemic changes. He was given aspirin and low-dose beta-amelia, metoprolol 12.5 mg b.i.d. He was started empirically on vancomycin and cefepime. Cardiac enzymes were monitored. Echocardiogram done showed EF 55% with normal ventricular size, function, and wall motion. There was reduced left ventricular relaxation consistent with diastolic dysfunction and mild mitral regurgitation and tricuspid regurgitation. The patient had desaturation and was placed on high-flow oxygen via mask. Family meeting was done regarding plan of care. The patient continued to have worsening WBC despite being on IV antibiotic. Cefepime was switched to Zosyn. He was continued on Norvasc and Lopressor for blood pressure management. Repeat chest x-ray showed no new infiltrates. He remained altered and unresponsive with poor prognosis. He was eventually placed on comfort care. The patient was eventually discharged to [facility] under hospice. FINAL DIAGNOSES: 1. Sepsis. 2. Pneumonia. 3. Dxp-WJ-muexqlly myocardial infarction. 4. Altered level of consciousness. 5. Alzheimer disease. 6. Feeding by gastrostomy tube. 7. Hypertension. 8. Urinary tract infection. 9. Temporomandibular joint locked jaw. 10. Dysphagia, on gastrostomy tube. 11. Chronic encephalopathy with Alzheimer's. Disposition: The patient was [facility] to [facility] with hosp[facility]. DISCHARGE MEDICATIONS: Refer to medication list. Sridhar Jiang D.O. I have been assigned to dictate discharge summary on this account and I was not involved in the patient's management. Sulma Irene N.P. DR: CARLOS JOB#: [id number] CC:
== END 2017-05-18 15:01 | DRG 871 ==
LOC: EDUNIT# 12:24 → EDBD 12:24 → EMR 14:02 → 2W 14:04 → EDBEDREQSVC 14:12 → EDBEDREQ 15:23 → 2W 17:22 → 4W 05-13 23:45
DX: A41.9 Sepsis, unspecified organism (principal); J18.9 Pneumonia, unspecified organism; I21.4 Non-ST elevation (NSTEMI) myocardial infarction; G93.49 Other encephalopathy; Z43.1 Encounter for attention to gastrostomy; N39.0 Urinary tract infection, site not specified; G30.9 Alzheimer's disease, unspecified; F02.80 Dementia in other diseases classified elsewhere, unspecified severity, without behavioral disturbance, psychotic disturbance, mood disturbance, and anxiety; R13.10 Dysphagia, unspecified; M26.69 Other specified disorders of temporomandibular joint; I10 Essential (primary) hypertension; Z66 Do not resuscitate
CPT/HCPCS: 36415; 71010; 80048; 80053; 80061; 80202; 81001; 81003; 82550; 82553; 82962; 83605; 83735; 83880; 84100; 84484; 85007; 85025; 87040; 87081; 87086; 93005; 93306; 94640; 94664; 94760; 97803; J7620